=== PATIENT | male | born 1970 | race Caucasian/White ===

== ENCOUNTER 2020-06-17 18:37 | Inpatient (IN) | payer OTHER, SELFPAY ==
[2020-06-17 20:39] VITALS: BP 146/92; PULSE 114; RESP 18; TEMP 37.1; O2SAT 96; BMI 34.0
[2020-06-17 21:15] LABS: Amphetamine Screen Urine Not Detected (Not Detect); Barbiturates, Urine Not Detected (Not Detect); Benzodiazepines Screen Urine Not Detected (Not Detect); Cannabinoid Screen Urine POSITIVE (Not Detect); Cocaine Screen Urine Not Detected (Not Detect); Opiate Screen Urine Not Detected (Not Detect); Phencyclidine Screen Urine Not Detected (Not Detect)
--- NOTE | 2020-06-17 22:28 | ED.PSYCH ---
HPI - Psych General Chief Complaint: Psychiatric Symptoms Stated Complaint: crisis Time Seen by Provider: 06/17/20 22:28 Source: patient Mode of arrival: ambulatory History of Present Illness HPI Narrative: 49-year-old male who presents with increasing anxiety and depression and states he is not currently taking any medications. When asked about suicidal ideation patient describes vague symptoms but states that he would not follow through. Otherwise, patient denies any fevers, chills, shortness of breath, or chest pain. Related Data Allergies Allergy/AdvReac Type Severity Reaction Status Date / Time No Known Allergies Allergy Verified 06/17/20 20:38 [No Known Allergies*] Review of Systems Review of Systems: Pertinent positives and negatives as stated in HPI 10 point review of systems is otherwise negative. PMFSH Past Medical History Source: nursing notes reviewed Medical History Anxiety Depression Social History Social History Advance Directives: No Physical Exam Vital Signs: Vital Signs: Last Vital Signs Temp 98.8 F 06/17/20 20:39 Pulse 114 H 06/17/20 20:39 Resp 18 06/17/20 20:39 BP 146/92 H 06/17/20 20:39 Pulse Ox 96 06/17/20 20:39 Body Mass Index 34.0 VITAL SIGNS: Reviewed. GENERAL: Well developed, well nourished, in no acute distress. HEAD: Normocephalic/atraumatic OROPHARYNX: no oral lesions noted, posterior pharynx clear NECK: Supple, no adenopathy LUNGS: Normal breath sounds. SpO2<96> CARDIOVASCULAR: Regular rate and rhythm without noted murmurs ABDOMEN: Soft, non-tender, non-distended with bowel sounds. NEUROLOGIC: Alert and oriented x 4. Strength and sensation to light touch were grossly intact x 4. PSYCH: Calm, logical thought Course Course Course Narrative: 49-year-old male with history and clinical presentation of anxiety and depression, not currently taking medications and also endorses vague symptoms of suicidal ideation. Patient is otherwise medically cleared for further evaluation by the CARE team. Reevaluation(s) Reevaluation #1: Patient placed in physician observation because the patient is inpatient bedsearch. At the time observation was started the patient's vital signs were stable, patient is alert and oriented but slightly agitated, neuro: Nonfocal, CV RRR, lungs clear Time: 23:35 MDM - Psych Lab Data Labs: Lab Results 06/17/20 Range/Units 20:45 Urine Opiates Screen Not Detected (Not Detect) Ur Barbiturates Screen Not Detected (Not Detect) Ur Phencyclidine Scrn Not Detected (Not Detect) Ur Amphetamines Screen Not Detected (Not Detect) U Benzodiazepines Scrn Not Detected (Not Detect) Urine Cocaine Screen Not Detected (Not Detect) U Marijuana (THC) Screen POSITIVE H (Not Detect)
[2020-06-17 23:38] VITALS: BP 158/105; PULSE 105; RESP 16; TEMP 37.1; O2SAT 98
[2020-06-18] VITALS (8 sets, daily range): BP systolic 102–129; BP diastolic 60–86; PULSE 76–97; RESP 16–18; TEMP 36.3–37.1; O2SAT 96–100
[2020-06-18 00:07] LABS: COVID-19 Test Negative (Negative); IDNOW Serial# 9DD0AD1C
--- NOTE | 2020-06-18 01:32 | ECG_ITS ---
Test Reason : BLOOD CLOTH Blood Pressure : / mmHG Vent. Rate : 089 BPM Atrial Rate : 089 BPM P-R Int : 124 ms QRS Dur : 102 ms QT Int : 392 ms P-R-T Axes : -17 029 018 degrees QTc Int : 476 ms Normal sinus rhythm Cannot exclude old Inferior infarct (cited on or before 18-JUL-2018) Abnormal ECG When compared with ECG of 14-OCT-2019 12:50, No significant change was found Referred By: Shira Vilchis Electronically Signed By:ELLA WINCHESTER
[2020-06-18 02:30] LABS: D Dimer 425 NG/ML
--- NOTE | 2020-06-18 07:09 | PC.NURSE ---
Report recieved. PT currently eating breakfast, calm and cooperative, pt denies complaints. PT is inpatient bedsearch.
[2020-06-18] MEDS: lisinopriL 5 MG TABLET PO (09:50)
[2020-06-18] MEDS: Apixaban 5 MG TABLET 10 MG PO ×2 (09:50→21:50)
[2020-06-18] MEDS: Metoprolol Tartrate 25 MG TABLET PO ×2 (09:50→21:50)
[2020-06-18] MEDS: Omeprazole 20 MG CAPSULE.DR PO (09:50)
[2020-06-18 10:58] LABS: MANUAL DIFF FLAG NO
[2020-06-18 11:00] LABS: Basophils Percent Auto 0.3 % (0-2); Eosinophils Absolute Auto 0.1 X10*3/uL (0.0-0.4); Eosinophils Percent Auto 1.2 % (0-4); Hematocrit 49.3 % (42-52); Hemoglobin 16.4 g/dl (14.0-18.0); Imm Gran Abs Auto 0.03 X10*3/uL (0.00-0.03); Imm Gran Pct Auto 0.3 % (0.0-0.4); Lymphocytes Absolute Auto 1.8 X10*3/uL (1.2-4.9); Lymphocytes Percent Auto 15.3 % (20-40); Mean Corpuscular HGB Conc 33.3 g/dl (31.0-36.0); Mean Corpuscular Hemoglobin 30.6 pg (27.0-33.0); Mean Platelet Volume 9.2 fL (9.4-12.4); Monocytes Percent Auto 8.6 % (2-11); Neutrophils Absolute Auto 8.9 X10*3/uL (2.0-8.3); Neutrophils Percent Auto 74.3 % (45-73); Platelet Count 286 X10*3/uL (160-400); Red Blood Count 5.36 X10*6/uL (4.60-5.80); Red Cell Distribution Width 13.5 % (11.0-16.0); White Blood Count 11.9 X10*3/uL (4.8-10.8)
[2020-06-18 11:34] LABS: Anion Gap 14 (12-20); Blood Urea Nitrogen 10 mg/dL (9-16); Calcium 9.2 mg/dL (8.4-10.2); Carbon Dioxide 22 mmol/L (22-29); Chloride 107 mmol/L (96-108); Creatinine Clr Calc Pharmacy 114.3; Estimated Glomerular Filt Rate > 60; Glucose Random 102 mg/dL (60-115); Potassium 4.1 mmol/L (3.3-5.1); Sodium 139 mmol/L (135-145)
--- NOTE | 2020-06-18 19:56 | PC.NURSE ---
Report received. PT is sleeping in bed. Respirations even and unlabored. PT is inpatient bed search.
[2020-06-19] VITALS (8 sets, daily range): BP systolic 110–137; BP diastolic 68–86; PULSE 76–102; RESP 16–18; TEMP 36.3–36.6; O2SAT 95–97
[2020-06-19] MEDS: Melatonin 3 MG TABLET 9 MG PO ×2 (01:02→21:32)
[2020-06-19] MEDS: Omeprazole 20 MG CAPSULE.DR PO (06:17)
[2020-06-19] MEDS: lisinopriL 5 MG TABLET PO (09:31)
[2020-06-19] MEDS: Metoprolol Tartrate 25 MG TABLET PO ×2 (09:31→20:24)
[2020-06-19] MEDS: Apixaban 5 MG TABLET 10 MG PO ×2 (09:32→20:25)
--- NOTE | 2020-06-19 14:05 | PC.NURSE ---
nurse to nurse given to abilio (rn) on m5, pt aware of plan of care for admission to hosp.
--- NOTE | 2020-06-19 16:33 | PC.NURSE ---
49 year old male DX: Unspecified anxiety d/o, Unspecified schizophrenia spectrum and other psychotic d/o. Patient referred for admission by care team, arrived to floor 1515, signed CV. A+O x2, did not know date. Engages easily, intermittent eye contact, fair-poor attn to ADLs. Dressed in hospital attire. Patient reports mood is anxious, picks skin when anxious, presents with multiple skin lesions on arms, legs, back and forehead. When I get nervous I scratch and itch . States prior admission to unit, previously treated for alcohol use I haven't drank for 10 years . Denies drug use although tox screen positive for Cannabis. COVID negative. Patient reports he has no current providers and has not been taking medications. Reports nothing helps feels hopeless. Intermittent SI, denies plan or intent at this time. States mandaeism beliefs prevent him from acting on suicidal thoughts. Describes thought as negative. Endorses racing thoughts with poor focus. Easily distracted. Patient guarded however linear and organized. Denies A/V hallucinations at this time. Reports family and staff believe he is delusional, I got engaged 2 years ago and didn't want to. I know people think I am delusional but I'm not. The demonic evil spirits made me . The spirits make me do it . States recent stressor includes leaving [facility] 2 weeks ago. Medical history includes sleep apnea, and history of blood clot last year. States he does not have CPAP here, and believes his at home may be broken. [employer] made aware. NKDA. Placed on 5 minute safety checks. See nursing assessment for details, crisis eval for further details.
[2020-06-19] MEDS: hydrOXYzine HCL 25 MG TABLET PO (20:27)
[2020-06-20 06:00] VITALS: BP 133/76; PULSE 78; RESP 18; TEMP 36.6; O2SAT 97
[2020-06-20] MEDS: Omeprazole 20 MG CAPSULE.DR PO (06:49)
[2020-06-20 07:00] VITALS: BMI 32.5
[2020-06-20 09:08] VITALS: BP 115/63; PULSE 80
[2020-06-20] MEDS: Metoprolol Tartrate 25 MG TABLET PO ×2 (09:08→20:12)
[2020-06-20 09:09] VITALS: BP 115/63; PULSE 80
[2020-06-20] MEDS: lisinopriL 5 MG TABLET PO (09:09)
[2020-06-20] MEDS: Apixaban 5 MG TABLET 10 MG PO ×2 (09:09→20:13)
[2020-06-20 09:14] LABS: Estimated Average Glucose 105 mg/dL; Hemoglobin A1c % 5.3 %
[2020-06-20 09:29] LABS: Cholesterol 213 mg/dL; HDL Cholesterol 42 mg/dL; LDL Cholesterol Calculated 150 mg/dl; Triglycerides 106 mg/dL
[2020-06-20 09:51] LABS: Free T4 (Free Thyroxine) 1.06 ng/dL (0.71-1.85)
[2020-06-20 10:06] LABS: Thyroid Stimulating Hormone 0.72 uIU/mL (0.32-4.0)
[2020-06-20 10:30] LABS: Folate 9.9 ng/mL (> or = 4.0); Vitamin B12 246 pg/mL (200-900)
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
[2020-06-20 18:00] VITALS: BP 112/71; PULSE 80; TEMP 36.7
[2020-06-20 20:12] VITALS: BP 112/71; PULSE 80
[2020-06-20] MEDS: OLANZapine 10 MG TABLET PO (20:12)
[2020-06-20] MEDS: Melatonin 3 MG TABLET 9 MG PO (21:18)
[2020-06-21 06:00] VITALS: BP 104/57; PULSE 62; RESP 18; TEMP 36; O2SAT 96
[2020-06-21] MEDS: Omeprazole 20 MG CAPSULE.DR PO (06:37)
[2020-06-21 08:45] VITALS: BP 126/64; PULSE 73
[2020-06-21] MEDS: Metoprolol Tartrate 25 MG TABLET PO (08:45)
[2020-06-21] MEDS: lisinopriL 5 MG TABLET PO (08:45)
[2020-06-21] MEDS: FLUoxetine HCl Oral Solution 20 MG/5 ML SOLUTION 10 MG PO (09:07)
[2020-06-21] MEDS: Apixaban 5 MG TABLET 10 MG PO ×2 (09:08→19:56)
--- NOTE | 2020-06-21 17:45 | HO.PSYCHPN ---
Subjective Subjective Date of Service: 06/21/20 Reason For Visit: Schizophrenia Subjective Notes: Conditional Voluntary Interim History: Pt discussed his depressive sx and resulting life changes. States sx began when he became engaged. He believes at that time the devil was present and encouraged him to . States the relationship was not the one for him and he almost made a mistake-but did not. Pt discussed having strong [place]/belief system and believes this is what kept him from making the wrong decision. Discussed regime, ECT consult. Considering a TDN and a return to [facility] as they heal and deliver . Encouraged to achieve improved sx mgt prior to considering this travel so he may benefit more from his experience. Reports this retreat will not allow medicine of any kind. Asks for prn medicine for sleep along with his Melatonin. Medication Compliance: Yes Side effects from medications: No Attending Groups: No Review of Systems Review of Systems Yes all other systems are reviewed and are negative (denies) Reports behavioral changes Psychiatric: Reports abnormal sleep pattern, Reports anxiety, Reports behavioral changes, Reports depression, Reports difficulty concentrating, Reports auditory hallucinations, Reports hopelessness, Reports paranoia and Reports hallucinations Mental Status Exam Mental Status Exam Patient Appearance: Disheveled Patient Orientation: Person, Place and Situation Level of Consciousness: Alert Patient Behavior: Guarded, Talkative, Suspicious, Fatigued and Poor Eye Contact Mood Description: Suspicious, Withdrawn and Depressed Affect Description: Flat Patient Cognition Impaired: No Ability to Follow Directions: Good Speech Pattern: Perseverating, Spontaneous Speech and Soft-Spoken Memory Description: Episodic Impaired Hallucinations: None Delusions: Present (pt identifies that they are present) Thought Process: Rumination Thought Content: positive for [place], positive for Obsessional Thoughts and positive for Circumstantial Depressive Symptoms: Insomnia, Diff. Making Decisions, Difficulty Sleeping, Loss of Int. in Activity, Feelings of Worthlessness, Hopelessness, Unhappiness and Difficulty Concentrating Judgement: Poor Diagnostics Vital Signs (24Hr): Vital Signs - 24 hr 06/20/20 18:00 06/20/20 20:12 06/21/20 06:00 Temperature 98.1 F 96.8 F Pulse Rate 80 80 62 Respiratory Rate 18 Blood Pressure 112/71 112/71 104/57 L Pulse Oximetry 96 06/21/20 08:45 Temperature Pulse Rate 73 Respiratory Rate Blood Pressure 126/64 Pulse Oximetry Body Mass Index 32.5 Labs Results: 06/18/20 10:52 06/18/20 10:52 Labs: Laboratory Results - last 48 hr 06/20/20 06/20/20 06/20/20 08:39 08:39 08:39 Estimat Average Glucose 105 Hemoglobin A1c % 5.3 Triglycerides 106 Cholesterol 213 LDL Cholesterol, Calc 150 HDL Cholesterol 42 Vitamin B12 246 Folate 9.9 TSH 0.72 Free T4 1.06 Medications Medications Current Medications Generic Name Dose Route Start Last Admin Trade Name Freq PRN Reason Stop Dose Admin Acetaminophen 650 mg 06/19/20 15:34 Acetaminophen 325 Mg Tablet PO Q6H PRN Headache/Pain Mild Scale (1-3) Al Hydroxide/Mg Hydroxide 30 ml 06/19/20 15:34 Magnesium Hydrox/Alum Hydrox 30 Ml Oral.Susp PO Q6H PRN Heartburn/Nausea Apixaban 10 mg 06/18/20 09:00 06/21/20 09:08 Apixaban 5 Mg Tablet PO 06/25/20 08:59 10 mg BID FERNANDO Administration Fluoxetine HCl 10 mg 06/21/20 09:00 06/21/20 09:07 Fluoxetine Hcl Oral Solution 20 Mg/5 Ml Solution PO 10 mg DAILY FERNANDO Administration Hydroxyzine HCl 25 mg 06/19/20 15:34 06/19/20 20:27 Hydroxyzine Hcl 25 Mg Tablet PO 25 mg BEDTIME PRN Administration Anxiety Lisinopril 5 mg 06/18/20 09:00 06/21/20 08:45 Lisinopril 5 Mg Tablet PO 5 mg DAILY FERNANDO Administration Protocol Lorazepam 1 mg 06/19/20 15:38 Lorazepam 1 Mg Tablet PO Q6H PRN Anxiety Magnesium Hydroxide 30 ml 06/19/20 15:34 Milk Of Magnesia 30 Ml Oral.Susp PO DAILY PRN Constipation Melatonin 9 mg 06/20/20 21:15 06/20/20 21:18 Melatonin 3 Mg Tablet PO 9 mg BEDTIME FERNANDO Administration Metoprolol Tartrate 25 mg 06/18/20 09:00 06/21/20 08:45 Metoprolol Tartrate 25 Mg Tablet PO 25 mg BID FERNANDO Administration Protocol Olanzapine 10 mg 06/20/20 21:00 06/20/20 20:12 Olanzapine 10 Mg Tablet PO 10 mg BEDTIME FERNANDO Administration Omeprazole 20 mg 06/18/20 06:30 06/21/20 06:37 Omeprazole 20 Mg Capsule. PO 20 mg DAILY@0630 FERNANDO Administration Allergies Allergies Allergy/AdvReac Type Severity Reaction Status Date / Time No Known Allergies Allergy Verified 06/17/20 20:38 [No Known Allergies*] Assessment & Plan Assessment & Plan (1) Severe recurrent major depression w/psychotic features, mood-congruent: Status: Acute Code(s): F33.3 - Major depressive disorder, recurrent, severe with psychotic symptoms Assessment and Plan: Pt feeling hopeless regarding interventions. Considers a return to [facility] Prozac 10 mg daily-to target depressive, OCD sx. Increase Olanzapine to 15 mg HS-to target depressive, OCD, psychotic, skin picking sx. ECT Consult (2) OCD (obsessive compulsive disorder): Status: Acute Code(s): F42.9 - Obsessive-compulsive disorder, unspecified (3) Skin-picking disorder: Status: Acute Code(s): F42.4 - Excoriation (skin-picking) disorder Greater than 50% of the session was spent on counseling and/or coordination of care Reason for contiued inpatient stay Substantial Risk for: harm to self, harm to others, inability to function and rapid decompensation
[2020-06-21 18:15] VITALS: BP 131/77; PULSE 89; TEMP 36.8
[2020-06-21 19:40] VITALS: BP 114/53; PULSE 88; TEMP 37.1
[2020-06-21] MEDS: Melatonin 3 MG TABLET 9 MG PO (19:55)
[2020-06-21] MEDS: OLANZapine 7.5 MG TABLET 15 MG PO (19:56)
[2020-06-21 19:58] VITALS: BP 114/53; PULSE 88
[2020-06-22 06:20] VITALS: BP 102/58; PULSE 67; RESP 18; TEMP 36.3; O2SAT 95
[2020-06-22] MEDS: Omeprazole 20 MG CAPSULE.DR PO (06:34)
[2020-06-22] MEDS: FLUoxetine HCl Oral Solution 20 MG/5 ML SOLUTION 10 MG PO (09:48)
[2020-06-22] MEDS: Apixaban 5 MG TABLET 10 MG PO ×2 (09:48→21:05)
--- NOTE | 2020-06-22 19:48 | HO.PSYCHPN ---
Subjective Subjective Date of Service: 06/22/20 Reason For Visit: Schizophrenia Subjective Notes: Conditional Voluntary Interim History: Pt reports he is tolerating medicine, is able to sleep, and picking sx have decreased. He is considering a TDN and wanting to return to retreat in [facility]. Medication Compliance: Yes Side effects from medications: No (denies) Attending Groups: Intermittent Review of Systems Skin/Breast: Reports lesions (healing-skin picking) Psychiatric: Reports difficulty concentrating, Reports auditory hallucinations, Reports anhedonia and Reports hallucinations Mental Status Exam Mental Status Exam Patient Appearance: Disheveled Patient Orientation: Person, Place, Time and Situation Level of Consciousness: Alert Patient Behavior: Guarded, Cooperative, Anxious, Distractible and Poor Eye Contact Mood Description: Constricted Affect Description: Constricted Patient Cognition Impaired: No Ability to Follow Directions: Good Speech Pattern: Spontaneous Speech and Soft-Spoken Memory Description: Episodic Impaired Hallucinations: Auditory (some self-dialoguing noted) Delusions: Present Thought Process: Distracted Thought Content: positive for Circum[place] and positive for Perseveration Depressive Symptoms: Low Self Esteem Judgement: Fair Diagnostics Vital Signs (24Hr): Vital Signs - 24 hr 06/21/20 19:58 06/22/20 06:20 Temperature 97.3 F Pulse Rate 88 67 Respiratory Rate 18 Blood Pressure 114/53 L 102/58 L Pulse Oximetry 95 Body Mass Index 32.5 Labs Results: 06/18/20 10:52 06/18/20 10:52 Medications Medications Current Medications Generic Name Dose Route Start Last Admin Trade Name Freq PRN Reason Stop Dose Admin Acetaminophen 650 mg 06/19/20 15:34 Acetaminophen 325 Mg Tablet PO Q6H PRN Headache/Pain Mild Scale (1-3) Al Hydroxide/Mg Hydroxide 30 ml 06/19/20 15:34 Magnesium Hydrox/Alum Hydrox 30 Ml Oral.Susp PO Q6H PRN Heartburn/Nausea Apixaban 10 mg 06/18/20 09:00 06/22/20 09:48 Apixaban 5 Mg Tablet PO 06/25/20 08:59 10 mg BID FERNANDO Administration Fluoxetine HCl 10 mg 06/21/20 09:00 06/22/20 09:48 Fluoxetine Hcl Oral Solution 20 Mg/5 Ml Solution PO 10 mg DAILY FERNANDO Administration Hydroxyzine HCl 25 mg 06/19/20 15:34 06/19/20 20:27 Hydroxyzine Hcl 25 Mg Tablet PO 25 mg BEDTIME PRN Administration Anxiety Lisinopril 5 mg 06/18/20 09:00 06/22/20 09:48 Lisinopril 5 Mg Tablet PO Not Given DAILY FERNANDO Protocol Lorazepam 1 mg 06/19/20 15:38 Lorazepam 1 Mg Tablet PO Q6H PRN Anxiety Magnesium Hydroxide 30 ml 06/19/20 15:34 Milk Of Magnesia 30 Ml Oral.Susp PO DAILY PRN Constipation Melatonin 9 mg 06/20/20 21:15 06/21/20 19:55 Melatonin 3 Mg Tablet PO 9 mg BEDTIME FERNANDO Administration Metoprolol Tartrate 25 mg 06/18/20 09:00 06/22/20 09:48 Metoprolol Tartrate 25 Mg Tablet PO Not Given BID FERNANDO Protocol Olanzapine 15 mg 06/21/20 21:00 06/21/20 19:56 Olanzapine 7.5 Mg Tablet PO 15 mg BEDTIME FERNANDO Administration Omeprazole 20 mg 06/18/20 06:30 06/22/20 06:34 Omeprazole 20 Mg Capsule. PO 20 mg DAILY@0630 FERNANDO Administration Trazodone HCl 100 mg 06/21/20 17:46 Trazodone Hcl 100 Mg Tablet PO BEDTIME PRN Insomnia Allergies Allergies Allergy/AdvReac Type Severity Reaction Status Date / Time No Known Allergies Allergy Verified 06/17/20 20:38 [No Known Allergies*] Assessment & Plan Assessment & Plan (1) Severe recurrent major depression w/psychotic features, mood-congruent: Status: Acute Code(s): F33.3 - Major depressive disorder, recurrent, severe with psychotic symptoms Assessment and Plan: Pt feeling hopeless regarding interventions. Considers a return to [facility] day retreat Prozac 10 mg daily-to target depressive, OCD sx. and Olanzapine 15 mg HS to target depressive, OCD, psychosis and skin picking ECT Consult (2) OCD (obsessive compulsive disorder): Status: Acute Code(s): F42.9 - Obsessive-compulsive disorder, unspecified (3) Skin-picking disorder: Status: Acute Code(s): F42.4 - Excoriation (skin-picking) disorder Greater than 50% of the session was spent on counseling and/or coordination of care Reason for contiued inpatient stay Substantial Risk for: inability to function and rapid decompensation
[2020-06-22 21:05] VITALS: BP 148/77; PULSE 104
[2020-06-22] MEDS: OLANZapine 7.5 MG TABLET 15 MG PO (21:05)
[2020-06-22] MEDS: Metoprolol Tartrate 25 MG TABLET PO (21:05)
[2020-06-22] MEDS: Melatonin 3 MG TABLET 9 MG PO (21:05)
[2020-06-22 21:07] VITALS: BP 148/77; PULSE 104; TEMP 36.9; O2SAT 97
[2020-06-22] MEDS: hydrOXYzine HCL 25 MG TABLET PO (22:16)
[2020-06-23 06:00] VITALS: BP 105/58; PULSE 62; RESP 18; TEMP 37.2; O2SAT 96
[2020-06-23] MEDS: Omeprazole 20 MG CAPSULE.DR PO (06:42)
[2020-06-23] MEDS: Apixaban 5 MG TABLET 10 MG PO ×2 (09:39→20:45)
[2020-06-23] MEDS: FLUoxetine HCl Oral Solution 20 MG/5 ML SOLUTION 10 MG PO (09:40)
[2020-06-23 09:58] VITALS: BP 100/56; PULSE 60
[2020-06-23 10:01] VITALS: BP 100/66; PULSE 60
--- NOTE | 2020-06-23 14:23 | HO.PSYCHPN ---
Subjective Subjective Date of Service: 06/23/20 Reason For Visit: Schizophrenia Subjective Notes: Conditional Voluntary Interim History: Reports he plans to sign TDN. Will have ECT consult and will take medications, however, he reports sx are worse since he left retreat in [facility] ([facility] States with no meds he was not picking his skin. Brings the origin of sx back to the devil-taking temptation and getting involved with previous partner. This started a downward spiral of his life and an increase in his sx. He believes there is no treatment for sx except to focus on his yarsani beliefs, although he expressed gratitude for treatments given and offered. Believes he should admit himself to [facility] for a year or more to heal. Will discuss with family. Medication Compliance: Yes Side effects from medications: No (denies) Attending Groups: Yes Review of Systems Skin/Breast: Reports lesions (skin lesions due to picking appear improved.) Reports behavioral changes Psychiatric: Reports anxiety, Reports behavioral changes, Reports depression and Reports hopelessness Mental Status Exam Mental Status Exam Patient Appearance: Disheveled Patient Orientation: Person, Place, Time and Situation Level of Consciousness: Alert Patient Behavior: Talkative, Cooperative, Fatigued, Distractible and Good Eye Contact Mood Description: Anxious Affect Description: Flat Patient Cognition Impaired: No Ability to Follow Directions: Good Speech Pattern: Spontaneous Speech and Soft-Spoken Memory Description: Episodic Impaired Hallucinations: Auditory (responding to internal stimuli at times-dialoguing, laughing) Delusions: Present (yarsani focus increasing-being punished ) Thought Process: Illogical and Rumination Thought Content: positive for [place], positive for [place]um[place], positive for Perseveration, positive for Preoccupation and positive for Suicidal Ideation (denies) Depressive Symptoms: Diff. Making Decisions, Feelings of Worthlessness, Hopelessness, Feelings of Guilt, Unhappiness, Thoughts of /Suicide (denies) and Low Self Esteem Judgement: Poor Diagnostics Vital Signs (24Hr): Vital Signs - 24 hr 06/22/20 21:05 06/22/20 21:07 06/23/20 06:00 Temperature 98.5 F 98.9 F Pulse Rate 104 H 104 H 62 Respiratory Rate 18 Blood Pressure 148/77 H 148/77 H 105/58 L Pulse Oximetry 97 96 06/23/20 09:58 06/23/20 10:01 Temperature Pulse Rate 60 60 Respiratory Rate Blood Pressure 100/56 L 100/66 Pulse Oximetry Body Mass Index 32.5 Labs Results: 06/18/20 10:52 06/18/20 10:52 Medications Medications Current Medications Generic Name Dose Route Start Last Admin Trade Name Freq PRN Reason Stop Dose Admin Acetaminophen 650 mg 06/19/20 15:34 Acetaminophen 325 Mg Tablet PO Q6H PRN Headache/Pain Mild Scale (1-3) Al Hydroxide/Mg Hydroxide 30 ml 06/19/20 15:34 Magnesium Hydrox/Alum Hydrox 30 Ml Oral.Susp PO Q6H PRN Heartburn/Nausea Apixaban 10 mg 06/18/20 09:00 06/23/20 09:39 Apixaban 5 Mg Tablet PO 06/25/20 08:59 10 mg BID FERNANDO Administration Fluoxetine HCl 10 mg 06/21/20 09:00 06/23/20 09:40 Fluoxetine Hcl Oral Solution 20 Mg/5 Ml Solution PO 10 mg DAILY FERNANDO Administration Hydroxyzine HCl 25 mg 06/19/20 15:34 06/22/20 22:16 Hydroxyzine Hcl 25 Mg Tablet PO 25 mg BEDTIME PRN Administration Anxiety Lisinopril 5 mg 06/18/20 09:00 06/23/20 10:01 Lisinopril 5 Mg Tablet PO Not Given DAILY FERNANDO Protocol Lorazepam 1 mg 06/19/20 15:38 Lorazepam 1 Mg Tablet PO Q6H PRN Anxiety Magnesium Hydroxide 30 ml 06/19/20 15:34 Milk Of Magnesia 30 Ml Oral.Susp PO DAILY PRN Constipation Melatonin 9 mg 06/20/20 21:15 06/22/20 21:05 Melatonin 3 Mg Tablet PO 9 mg BEDTIME FERNANDO Administration Metoprolol Tartrate 25 mg 06/18/20 09:00 06/23/20 09:58 Metoprolol Tartrate 25 Mg Tablet PO Not Given BID FERNANDO Protocol Olanzapine 15 mg 06/21/20 21:00 06/22/20 21:05 Olanzapine 7.5 Mg Tablet PO 15 mg BEDTIME FERNANDO Administration Omeprazole 20 mg 06/18/20 06:30 06/23/20 06:42 Omeprazole 20 Mg Capsule.Dr PO 20 mg DAILY@0630 FERNANDO Administration Trazodone HCl 100 mg 06/21/20 17:46 Trazodone Hcl 100 Mg Tablet PO BEDTIME PRN Insomnia Allergies Allergies Allergy/AdvReac Type Severity Reaction Status Date / Time No Known Allergies Allergy Verified 06/17/20 20:38 [No Known Allergies*] Assessment & Plan Assessment & Plan (1) Severe recurrent major depression w/psychotic features, mood-congruent: Status: Acute Code(s): F33.3 - Major depressive disorder, recurrent, severe with psychotic symptoms Assessment and Plan: Pt feeling hopeless regarding interventions. Considers a return to [facility] retreat for a assisted commitment Plans to file TDN Prozac 10 mg daily-to target depressive, OCD sx. Increase Olanzapine to 20 mg HS ECT Consult (2) OCD (obsessive compulsive disorder): Status: Acute Code(s): F42.9 - Obsessive-compulsive disorder, unspecified Assessment and Plan: Picking sx have decreased, Lesions are healing. Increase Olanzapine to 20 mg HS. (3) Skin-picking disorder: Status: Acute Code(s): F42.4 - Excoriation (skin-picking) disorder Assessment and Plan: Symptoms decreaseing, lesions healing. Greater than 50% of the session was spent on counseling and/or coordination of care Reason for contiued inpatient stay Substantial Risk for: inability to function and rapid decompensation
[2020-06-23 18:42] VITALS: BP 117/63; PULSE 91; TEMP 36.9
[2020-06-23 20:45] VITALS: BP 127/88; PULSE 95
[2020-06-23] MEDS: OLANZapine 10 MG TABLET 20 MG PO (20:45)
[2020-06-23] MEDS: Metoprolol Tartrate 25 MG TABLET PO (20:45)
[2020-06-23] MEDS: Melatonin 3 MG TABLET 9 MG PO (20:45)
[2020-06-24 06:00] VITALS: BP 120/70; PULSE 56; RESP 18; TEMP 36.6; O2SAT 97
[2020-06-24] MEDS: Omeprazole 20 MG CAPSULE.DR PO (06:33)
[2020-06-24 09:15] VITALS: BP 123/72; PULSE 70
[2020-06-24] MEDS: Apixaban 5 MG TABLET 10 MG PO ×2 (09:15→21:26)
[2020-06-24] MEDS: Metoprolol Tartrate 25 MG TABLET PO ×2 (09:15→21:26)
[2020-06-24 09:18] VITALS: BP 123/70; PULSE 70
[2020-06-24] MEDS: lisinopriL 5 MG TABLET PO (09:18)
[2020-06-24] MEDS: FLUoxetine HCl Oral Solution 20 MG/5 ML SOLUTION 10 MG PO (09:19)
--- NOTE | 2020-06-24 12:01 | PC.NURSE ---
PT SIGNED A 3 DAY NOTICE 06/24/20, UP ON 06/27
[2020-06-24 21:15] VITALS: BP 120/59; PULSE 110; TEMP 37.1
--- NOTE | 2020-06-24 21:23 | P.PNPSI_ITS ---
Subjective Subjective Date of Service: 06/24/20 Reason For Visit: Schizophrenia Subjective Notes: Conditional Voluntary Interim History: Continues to contemplate TDN for a return to [facility] retreat in [facility]. Awaits ECT consult. Accepting of medications, discussed titration which he agrees to today, however, continues to state that his issues and symptoms are from poor choices that were not correct or in line with his belief system. Isolative mostly, interactive with room-mate. Denies SI, HI. Sleep is increased, appetite intact. Picking continues. Olanzapine increased 06/23. Healing scars noted on pt's face. Medication Compliance: Yes Side effects from medications: No Attending Groups: No Review of Systems Review of Systems Yes all other systems are reviewed and are negative (denies) Psychiatric: Reports depression, Reports hopelessness, Reports anhedonia, Reports hallucinations and Reports suicidal ideation (denies) Mental Status Exam Mental Status Exam Patient Appearance: Unkempt Patient Orientation: Person, Place, Time and Situation Level of Consciousness: Alert Patient Behavior: Appropriate, Guarded, Talkative, Suspicious, Avoidant, Isolative and Good Eye Contact Mood Description: Constricted and Depressed Affect Description: Flat Patient Cognition Impaired: No Ability to Follow Directions: Good Speech Pattern: Spontaneous Speech Memory Description: Intact Hallucinations: None Delusions: Being Controlled, Paranoid Ideation and Present Thought Process: Distracted and Rumination Thought Content: positive for [place], positive for [place]um[place], positive for Perseveration and positive for Preoccupation Depressive Symptoms: Diff. Making Decisions, Sleeping More Than Usual, Loss of Int. in Activity, Hopelessness, Feelings of Guilt, Unhappiness, Increased Fatigue, Low Self Esteem, Loss of Energy and Difficulty Concentrating Judgement: Fair Diagnostics Vital Signs (24Hr): Vital Signs - 24 hr 06/24/20 06:00 06/24/20 09:15 06/24/20 09:18 Temperature 97.9 F Pulse Rate 56 70 70 Respiratory Rate 18 Blood Pressure 120/70 123/72 123/70 Pulse Oximetry 97 Body Mass Index 32.5 Labs Results: 06/18/20 10:52 06/18/20 10:52 Medications Medications Current Medications Generic Name Dose Route Start Last Admin Trade Name Freq PRN Reason Stop Dose Admin Acetaminophen 650 mg 06/19/20 15:34 Acetaminophen 325 Mg Tablet PO Q6H PRN Headache/Pain Mild Scale (1-3) Al Hydroxide/Mg Hydroxide 30 ml 06/19/20 15:34 Magnesium Hydrox/Alum Hydrox 30 Ml Oral.Susp PO Q6H PRN Heartburn/Nausea Apixaban 10 mg 06/18/20 09:00 06/24/20 09:15 Apixaban 5 Mg Tablet PO 06/25/20 08:59 10 mg BID FERNANDO Administration Fluoxetine HCl 15 mg 06/25/20 09:00 Fluoxetine Hcl Oral Solution 20 Mg/5 Ml Solution PO DAILY FERNANDO Hydroxyzine HCl 25 mg 06/19/20 15:34 06/22/20 22:16 Hydroxyzine Hcl 25 Mg Tablet PO 25 mg BEDTIME PRN Administration Anxiety Lisinopril 5 mg 06/18/20 09:00 06/24/20 09:18 Lisinopril 5 Mg Tablet PO 5 mg DAILY FERNNADO Administration Protocol Lorazepam 1 mg 06/19/20 15:38 Lorazepam 1 Mg Tablet PO Q6H PRN Anxiety Magnesium Hydroxide 30 ml 06/19/20 15:34 Milk Of Magnesia 30 Ml Oral.Susp PO DAILY PRN Constipation Melatonin 9 mg 06/20/20 21:15 06/23/20 20:45 Melatonin 3 Mg Tablet PO 9 mg BEDTIME FERNANDO Administration Metoprolol Tartrate 25 mg 06/18/20 09:00 06/24/20 09:15 Metoprolol Tartrate 25 Mg Tablet PO 25 mg BID FERNANDO Administration Protocol Olanzapine 20 mg 06/23/20 21:00 06/23/20 20:45 Olanzapine 10 Mg Tablet PO 20 mg BEDTIME FERNANDO Administration Omeprazole 20 mg 06/18/20 06:30 06/24/20 06:33 Omeprazole 20 Mg Capsule. PO 20 mg DAILY@0630 FERNANDO Administration Trazodone HCl 100 mg 06/21/20 17:46 Trazodone Hcl 100 Mg Tablet PO BEDTIME PRN Insomnia Allergies Allergies Allergy/AdvReac Type Severity Reaction Status Date / Time No Known Allergies Allergy Verified 06/17/20 20:38 [No Known Allergies*] Assessment & Plan Assessment & Plan (1) Severe recurrent major depression w/psychotic features, mood-congruent: Status: Acute Code(s): F33.3 - Major depressive disorder, recurrent, severe with psychotic symptoms Assessment and Plan: Pt feeling hopeless regarding interventions. 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 Increase Olanzapine to 20 mg HS on 06/23 tolerated ECT Consult (2) OCD (obsessive compulsive disorder): Status: Acute Code(s): F42.9 - Obsessive-compulsive disorder, unspecified Assessment and Plan: Picking sx have decreased, Lesions are healing. Increase Olanzapine to 20 mg HS tolerated thus far. (3) Skin-picking disorder: Status: Acute Code(s): F42.4 - Excoriation (skin-picking) disorder Assessment and Plan: Symptoms decreasing, however picking continues, lesions healing. Greater than 50% of the session was spent on counseling and/or coordination of care Reason for contiued inpatient stay Substantial Risk for: inability to function, rapid decompensation and med/psych decompensation
[2020-06-24 21:26] VITALS: BP 120/59; PULSE 110
[2020-06-24] MEDS: Melatonin 3 MG TABLET 9 MG PO (21:27)
[2020-06-24] MEDS: OLANZapine 10 MG TABLET 20 MG PO (21:28)
[2020-06-25 06:00] VITALS: BP 120/56; PULSE 66; TEMP 36.6
[2020-06-25] MEDS: Omeprazole 20 MG CAPSULE.DR PO (06:04)
[2020-06-25 08:59] VITALS: BP 135/86; PULSE 94
[2020-06-25] MEDS: FLUoxetine HCl Oral Solution 20 MG/5 ML SOLUTION 15 MG PO (08:59)
[2020-06-25] MEDS: Metoprolol Tartrate 25 MG TABLET PO ×2 (08:59→21:07)
[2020-06-25 09:02] VITALS: BP 135/86; PULSE 94
[2020-06-25] MEDS: lisinopriL 5 MG TABLET PO (09:02)
--- NOTE | 2020-06-25 10:54 | PC.NURSE ---
PT NO LONGER REQUESTING NICOTINE REPLACEMENT AT THIS TIME.
--- NOTE | 2020-06-25 11:55 | P.PNPSI_ITS ---
Subjective Subjective Date of Service: 06/25/20 Reason For Visit: Schizophrenia Subjective Notes: 3 Day Interim History: Patient seen in coverage . Patient with full affect anxious picking his skin feels he is somehow being persecuted by bed choices he has made in the past he denies that he is purposely harming himself and denies active thoughts of self-harm. Patient was given a Bowman warning prior to being seen Medication Compliance: Yes Mental Status Exam Mental Status Exam Patient Appearance: Unkempt Patient Orientation: Person, Place, Time and Situation Level of Consciousness: Alert Patient Behavior: Guarded, Talkative, Suspicious, Avoidant, Isolative and Good Eye Contact Behavior Comments: Frequent skin picking of his forehead Mood Description: Constricted and Depressed Affect Description: Flat Patient Cognition Impaired: No Ability to Follow Directions: Good Speech Pattern: Spontaneous Speech Memory Description: Intact Hallucinations: None Delusions: Being Controlled and Paranoid Ideation Thought Process: Distracted and Rumination Thought Content: positive for [place], positive for [place]um[place], positive for Perseveration and positive for Preoccupation Depressive Symptoms: Increased Anxiety, Diff. Making Decisions, Difficulty Sleeping, Sleeping More Than Usual, Loss of Int. in Activity, Hopelessness, Feelings of Guilt, Unhappiness, Increased Fatigue, Low Self Esteem, Loss of Energy and Difficulty Concentrating Judgement: Fair Diagnostics Vital Signs (24Hr): Vital Signs - 24 hr 06/24/20 21:15 06/24/20 21:26 06/25/20 06:00 Temperature 98.7 F 97.8 F Pulse Rate 110 H 110 H 66 Blood Pressure 120/59 L 120/59 L 120/56 L 06/25/20 08:59 06/25/20 09:02 Temperature Pulse Rate 94 94 Blood Pressure 135/86 135/86 Body Mass Index 32.5 Labs Results: 06/18/20 10:52 06/18/20 10:52 Medications Medications Current Medications Generic Name Dose Route Start Last Admin Trade Name Freq PRN Reason Stop Dose Admin Acetaminophen 650 mg 06/19/20 15:34 Acetaminophen 325 Mg Tablet PO Q6H PRN Headache/Pain Mild Scale (1-3) Al Hydroxide/Mg Hydroxide 30 ml 06/19/20 15:34 Magnesium Hydrox/Alum Hydrox 30 Ml Oral.Susp PO Q6H PRN Heartburn/Nausea Fluoxetine HCl 15 mg 06/25/20 09:00 06/25/20 08:59 Fluoxetine Hcl Oral Solution 20 Mg/5 Ml Solution PO 15 mg DAILY FERNANDO Administration Hydroxyzine HCl 25 mg 06/19/20 15:34 06/22/20 22:16 Hydroxyzine Hcl 25 Mg Tablet PO 25 mg BEDTIME PRN Administration Anxiety Lisinopril 5 mg 06/18/20 09:00 06/25/20 09:02 Lisinopril 5 Mg Tablet PO 5 mg DAILY FERNANDO Administration Protocol Lorazepam 1 mg 06/19/20 15:38 Lorazepam 1 Mg Tablet PO Q6H PRN Anxiety Magnesium Hydroxide 30 ml 06/19/20 15:34 Milk Of Magnesia 30 Ml Oral.Susp PO DAILY PRN Constipation Melatonin 9 mg 06/20/20 21:15 06/24/20 21:27 Melatonin 3 Mg Tablet PO 9 mg BEDTIME FERNANDO Administration Metoprolol Tartrate 25 mg 06/18/20 09:00 06/25/20 08:59 Metoprolol Tartrate 25 Mg Tablet PO 25 mg BID FERNANDO Administration Protocol Olanzapine 20 mg 06/23/20 21:00 06/24/20 21:28 Olanzapine 10 Mg Tablet PO 20 mg BEDTIME FERNANDO Administration Omeprazole 20 mg 06/18/20 06:30 06/25/20 06:04 Omeprazole 20 Mg Capsule. PO 20 mg DAILY@0630 FERNANDO Administration Trazodone HCl 100 mg 06/21/20 17:46 Trazodone Hcl 100 Mg Tablet PO BEDTIME PRN Insomnia Allergies Allergies Allergy/AdvReac Type Severity Reaction Status Date / Time No Known Allergies Allergy Verified 06/17/20 20:38 [No Known Allergies*] Assessment & Plan Assessment & Plan (1) Severe recurrent major depression w/psychotic features, mood-congruent: Status: Acute Code(s): F33.3 - Major depressive disorder, recurrent, severe with psychotic symptoms Assessment and Plan: Continue Prozac increased to 20 mg olanzapine 20 mg patient to hopeless helpless that any medication can help denies any active thoughts of self-harm feels he is somehow being persecuted in someway by bad spirits denies that medication has e mitzi helped this he was willing to consider ECT although after his last course of treatment [facility] went off medication and tends to eventually impulsively leave. Although he is willing to listen that part of his suffering and thinking may relate to a biological condition and putting this in the context his yazdanism beliefs he has had a mostly 5 fixed but appears to be delusional belief now times years. He did improve with ECT in the past will get medical clearance if patient agrees to ECT treatment. Labs unremarkable FBS minimally increased EKG QTC 476 question old infarct however unchanged over the past 2-3 years. Patient denies any active substance use. He denies any active thoughts of self-harm (2) OCD (obsessive compulsive disorder): Status: Acute Code(s): F42.9 - Obsessive-compulsive disorder, unspecified Assessment and Plan: cont prozac skin picking continues denies command or intentionality. Continue Olanzapine to 20 mg HS tolerated thus far. (3) Skin-picking disorder: Status: Acute Code(s): F42.4 - Excoriation (skin-picking) disorder Assessment and Plan: Symptoms decreasing, however picking continues, lesions healing. Greater than 50% of the session was spent on counseling and/or coordination of care Reason for contiued inpatient stay Substantial Risk for: harm to self, inability to function and rapid decompensat ion
[2020-06-25 18:00] VITALS: BP 123/69; RESP 111; TEMP 37.1
[2020-06-25 21:07] VITALS: BP 123/69; PULSE 111
[2020-06-25] MEDS: OLANZapine 10 MG TABLET 20 MG PO (21:07)
[2020-06-25] MEDS: Melatonin 3 MG TABLET 9 MG PO (21:07)
[2020-06-26 00:40] VITALS: RESP 18
[2020-06-26 06:00] VITALS: BP 113/60; PULSE 72; RESP 18; TEMP 35.9; O2SAT 96
[2020-06-26] MEDS: Omeprazole 20 MG CAPSULE.DR PO (06:20)
[2020-06-26 08:18] VITALS: BP 112/60; PULSE 77
[2020-06-26] MEDS: lisinopriL 5 MG TABLET PO (08:18)
[2020-06-26] MEDS: Metoprolol Tartrate 25 MG TABLET PO ×2 (08:18→21:07)
[2020-06-26] MEDS: FLUoxetine HCl Oral Solution 20 MG/5 ML SOLUTION PO (08:20)
[2020-06-26 08:58] VITALS: BP 112/60; PULSE 77; TEMP 36.6; O2SAT 94
[2020-06-26 18:00] VITALS: BP 131/80; PULSE 97; RESP 18; TEMP 36.8; O2SAT 96
[2020-06-26 21:07] VITALS: BP 151/82; PULSE 102
[2020-06-26] MEDS: Melatonin 3 MG TABLET 9 MG PO (21:07)
[2020-06-26] MEDS: OLANZapine 10 MG TABLET 20 MG PO (21:07)
--- NOTE | 2020-06-26 21:49 | HO.PSYCHPN ---
Subjective Subjective Date of Service: 06/26/20 Reason For Visit: Schizophrenia Subjective Notes: 3 Day Interim History: Patient given Bowman warning extensive discussion regarding potential treatment with ECT patient's thought that he continues to suffer from a spiritual attack he is anxious and dysphoric considering ECT denies active self-harm. No clear grounds for commitment patient has been discussing his history in options with his brother and mother Medication Compliance: Yes Mental Status Exam Mental Status Exam Patient Appearance: Unkempt Patient Orientation: Person, Place, Time and Situation Level of Consciousness: Alert Patient Behavior: Guarded, Talkative, Suspicious, Avoidant, Isolative and Good Eye Contact Behavior Comments: Frequent skin picking of his forehead Mood Description: Constricted and Depressed Affect Description: Flat Patient Cognition Impaired: No Ability to Follow Directions: Good Speech Pattern: Spontaneous Speech Memory Description: Intact Hallucinations: None Delusions: Being Controlled and Paranoid Ideation Thought Process: Distracted and Rumination Thought Content: positive for [place], positive for Circumstantial, positive for Perseveration and positive for Preoccupation Depressive Symptoms: Increased Anxiety, Diff. Making Decisions, Difficulty Sleeping, Sleeping More Than Usual, Loss of Int. in Activity, Hopelessness, Feelings of Guilt, Unhappiness, Increased Fatigue, Low Self Esteem, Loss of Energy and Difficulty Concentrating Judgement: Fair Diagnostics Vital Signs (24Hr): Vital Signs - 24 hr 06/26/20 00:40 06/26/20 06:00 06/26/20 08:18 Temperature 96.6 F L Pulse Rate 72 77 Respiratory Rate 18 18 Blood Pressure 113/60 112/60 Pulse Oximetry 96 06/26/20 08:58 06/26/20 18:00 06/26/20 21:07 Temperature 97.9 F 98.2 F Pulse Rate 77 97 102 H Respiratory Rate 18 Blood Pressure 112/60 131/80 151/82 H Pulse Oximetry 94 96 Body Mass Index 32.5 Labs Results: 06/18/20 10:52 06/18/20 10:52 Medications Medications Current Medications Generic Name Dose Route Start Last Admin Trade Name Freq PRN Reason Stop Dose Admin Acetaminophen 650 mg 06/19/20 15:34 Acetaminophen 325 Mg Tablet PO Q6H PRN Headache/Pain Mild Scale (1-3) Al Hydroxide/Mg Hydroxide 30 ml 06/19/20 15:34 Magnesium Hydrox/Alum Hydrox 30 Ml Oral.Susp PO Q6H PRN Heartburn/Nausea Fluoxetine HCl 20 mg 06/26/20 09:00 06/26/20 08:20 Fluoxetine Hcl Oral Solution 20 Mg/5 Ml Solution PO 20 mg DAILY FERNANDO Administration Hydroxyzine HCl 25 mg 06/19/20 15:34 06/22/20 22:16 Hydroxyzine Hcl 25 Mg Tablet PO 25 mg BEDTIME PRN Administration Anxiety Lisinopril 5 mg 06/18/20 09:00 06/26/20 08:18 Lisinopril 5 Mg Tablet PO 5 mg DAILY FERNANDO Administration Protocol Lorazepam 1 mg 06/19/20 15:38 Lorazepam 1 Mg Tablet PO Q6H PRN Anxiety Magnesium Hydroxide 30 ml 06/19/20 15:34 Milk Of Magnesia 30 Ml Oral.Susp PO DAILY PRN Constipation Melatonin 9 mg 06/20/20 21:15 06/26/20 21:07 Melatonin 3 Mg Tablet PO 9 mg BEDTIME FERNANDO Administration Metoprolol Tartrate 25 mg 06/18/20 09:00 06/26/20 21:07 Metoprolol Tartrate 25 Mg Tablet PO 25 mg BID FERNANDO Administration Protocol Olanzapine 20 mg 06/23/20 21:00 06/26/20 21:07 Olanzapine 10 Mg Tablet PO 20 mg BEDTIME FERNANDO Administration Omeprazole 20 mg 06/18/20 06:30 06/26/20 06:20 Omeprazole 20 Mg Capsule. PO 20 mg DAILY@0630 FERNANDO Administration Trazodone HCl 100 mg 06/21/20 17:46 Trazodone Hcl 100 Mg Tablet PO BEDTIME PRN Insomnia Allergies Allergies Allergy/AdvReac Type Severity Reaction Status Date / Time No Known Allergies Allergy Verified 06/17/20 20:38 [No Known Allergies*] Assessment & Plan Assessment & Plan (1) Severe recurrent major depression w/psychotic features, mood-congruent: Status: Acute Code(s): F33.3 - Major depressive disorder, recurrent, severe with psychotic symptoms Assessment and Plan: Continue Prozac increased to 20 mg olanzapine 20 mg patient to hopeless helpless that any medication can help denies any active thoughts of self-harm feels he is somehow being persecuted in someway by bad spirits denies that medication has ever helped this he was willing to consider ECT although after his last course of treatment he immediately went to [facility] went off medication and tends to eventually impulsively leave. Although he is willing to listen that part of his suffering and thinking may relate to a biological condition and putting this in the context his jehovah's witness beliefs he has had a mostly 5 fixed but appears to be delusional belief now times years. He did improve with ECT in the past will get medical clearance if patient agrees to ECT treatment. Labs unremarkable FBS minimally increased EKG QTC 476 question old infarct however unchanged over the past 2-3 years. Patient denies any active substance use. He denies any active thoughts of self-harm Patient continues to ruminate on treatment options he does appear to be significant considering ECT trying to separate biological treatment options from his jehovah's witness believes patient was seen with dialysis social worker cleo [place] consultation for ECT evaluation patient denies (2) OCD (obsessive compulsive disorder): Status: Acute Code(s): F42.9 - Obsessive-compulsive disorder, unspecified Assessment and Plan: cont prozac skin picking continues denies command or intentionality. Continue Olanzapine to 20 mg HS tolerated thus far. (3) Skin-picking disorder: Status: Acute Code(s): F42.4 - Excoriation (skin-picking) disorder Assessment and Plan: Symptoms decreasing, however picking continues, lesions healing. Greater than 50% of the session was spent on counseling and/or coordination of care Reason for contiued inpatient stay Substantial Risk for: harm to self, inability to function and rapid decompensation
[2020-06-27 06:00] VITALS: BP 150/68; PULSE 73; RESP 18; TEMP 36.7; O2SAT 98
[2020-06-27 07:00] VITALS: BMI 42.3
[2020-06-27 08:56] VITALS: BP 160/86; PULSE 112
[2020-06-27] MEDS: FLUoxetine HCl Oral Solution 20 MG/5 ML SOLUTION PO (08:56)
[2020-06-27] MEDS: Metoprolol Tartrate 25 MG TABLET PO ×2 (08:56→21:18)
[2020-06-27] MEDS: Omeprazole 20 MG CAPSULE.DR PO (08:56)
[2020-06-27] MEDS: lisinopriL 5 MG TABLET PO (08:56)
--- NOTE | 2020-06-27 15:23 | HO.PSYCHPN ---
Subjective Subjective Date of Service: 06/27/20 Reason For Visit: Schizophrenia Subjective Notes: Conditional Voluntary and 3 Day Interim History: Patient anxious ruminating on 3 day notice did retract but unclear if willing to continue treatment with depressed ambivalent discussed ECT Anafranil patient tormented much of the day with what he considers spiritual torments Medication Compliance: Yes Mental Status Exam Mental Status Exam Patient Appearance: Unkempt Patient Orientation: Person, Place, Time and Situation Level of Consciousness: Alert Patient Behavior: Guarded, Talkative, Suspicious, Avoidant, Isolative and Good Eye Contact Behavior Comments: Frequent skin picking of his forehead Mood Description: Constricted and Depressed Affect Description: Flat Patient Cognition Impaired: No Ability to Follow Directions: Good Speech Pattern: Spontaneous Speech Memory Description: Intact Hallucinations: None Delusions: Being Controlled and Paranoid Ideation Thought Process: Distracted and Rumination Thought Content: positive for [place], positive for Circumstantial, positive for Perseveration and positive for Preoccupation Depressive Symptoms: Increased Anxiety, Diff. Making Decisions, Difficulty Sleeping, Sleeping More Than Usual, Loss of Int. in Activity, Hopelessness, Feelings of Guilt, Unhappiness, Increased Fatigue, Low Self Esteem, Loss of Energy and Difficulty Concentrating Judgement: Fair Diagnostics Vital Signs (24Hr): Vital Signs - 24 hr 06/26/20 18:00 06/26/20 21:07 06/27/20 06:00 Temperature 98.2 F 98.0 F Pulse Rate 97 102 H 73 Respiratory Rate 18 18 Blood Pressure 131/80 151/82 H 150/68 H Pulse Oximetry 96 98 06/27/20 08:56 Temperature Pulse Rate 112 H Respiratory Rate Blood Pressure 160/86 H Pulse Oximetry Body Mass Index 42.3 Labs Results: 06/18/20 10:52 06/18/20 10:52 Medications Medications Current Medications Generic Name Dose Route Start Last Admin Trade Name Freq PRN Reason Stop Dose Admin Acetaminophen 650 mg 06/19/20 15:34 Acetaminophen 325 Mg Tablet PO Q6H PRN Headache/Pain Mild Scale (1-3) Al Hydroxide/Mg Hydroxide 30 ml 06/19/20 15:34 Magnesium Hydrox/Alum Hydrox 30 Ml Oral.Susp PO Q6H PRN Heartburn/Nausea Fluoxetine HCl 20 mg 06/26/20 09:00 06/27/20 08:56 Fluoxetine Hcl Oral Solution 20 Mg/5 Ml Solution PO 20 mg DAILY FERNANDO Administration Hydroxyzine HCl 25 mg 06/19/20 15:34 06/22/20 22:16 Hydroxyzine Hcl 25 Mg Tablet PO 25 mg BEDTIME PRN Administration Anxiety Lisinopril 5 mg 06/18/20 09:00 06/27/20 08:56 Lisinopril 5 Mg Tablet PO 5 mg DAILY FERNANDO Administration Protocol Lorazepam 1 mg 06/19/20 15:38 Lorazepam 1 Mg Tablet PO Q6H PRN Anxiety Magnesium Hydroxide 30 ml 06/19/20 15:34 Milk Of Magnesia 30 Ml Oral.Susp PO DAILY PRN Constipation Melatonin 9 mg 06/20/20 21:15 06/26/20 21:07 Melatonin 3 Mg Tablet PO 9 mg BEDTIME FERNANDO Administration Metoprolol Tartrate 25 mg 06/18/20 09:00 06/27/20 08:56 Metoprolol Tartrate 25 Mg Tablet PO 25 mg BID FERNANDO Administration Protocol Olanzapine 20 mg 06/23/20 21:00 06/26/20 21:07 Olanzapine 10 Mg Tablet PO 20 mg BEDTIME FERNANDO Administration Omeprazole 20 mg 06/18/20 06:30 06/27/20 08:56 Omeprazole 20 Mg Capsule. PO 20 mg DAILY@0630 FERNANDO Administration Trazodone HCl 100 mg 06/21/20 17:46 Trazodone Hcl 100 Mg Tablet PO BEDTIME PRN Insomnia Allergies Allergies Allergy/AdvReac Type Severity Reaction Status Date / Time No Known Allergies Allergy Verified 06/17/20 20:38 [No Known Allergies*] Assessment & Plan Assessment & Plan (1) Severe recurrent major depression w/psychotic features, mood-congruent: Status: Acute Code(s): F33.3 - Major depressive disorder, recurrent, severe with psychotic symptoms Assessment and Plan: Continue Prozac increased to 20 mg olanzapine 20 mg patient to hopeless helpless that any medication can help denies any active thoughts of self-harm feels he is somehow being persecuted in someway by bad spirits denies that medication has ever helped this he was willing to consider ECT although after his last course of treatment [facility] went off medication and tends to eventually impulsively leave. Although he is willing to listen that part of his suffering and thinking may relate to a biological condition and putting this in the context his baptism beliefs he has had a mostly 5 fixed but appears to be delusional belief now times years. He did improve with ECT in the past will get medical clearance if patient agrees to ECT treatment. Labs unremarkable FBS minimally increased EKG QTC 476 question old infarct however unchanged over the past 2-3 years. Patient denies any active substance use. He denies any active thoughts of self-harm Patient continues to ruminate on treatment options he does appear to be significant considering ECT trying to separate biological treatment options from his baptism believes patient was seen with health social work professor cleo [place] consultation for ECT evaluation patient denies (2) OCD (obsessive compulsive disorder): Status: Acute Code(s): F42.9 - Obsessive-compulsive disorder, unspecified Assessment and Plan: cont prozac skin picking continues denies command or intentionality. Continue Olanzapine to 20 mg HS tolerated thus far. (3) Skin-picking disorder: Status: Acute Code(s): F42.4 - Excoriation (skin-picking) disorder Assessment and Plan: Symptoms decreasing, however picking continues, lesions healing. Greater than 50% of the session was spent on counseling and/or coordination of care Reason for contiued inpatient stay Substantial Risk for: harm to self and rapid decompensation
[2020-06-27 18:50] VITALS: BP 145/87; PULSE 91; TEMP 36.9
[2020-06-27 20:48] VITALS: BP 130/89; PULSE 110
[2020-06-27 21:18] VITALS: BP 130/89; PULSE 110
[2020-06-27] MEDS: Melatonin 3 MG TABLET 9 MG PO (21:18)
[2020-06-27] MEDS: OLANZapine 10 MG TABLET 20 MG PO (21:18)
[2020-06-28] MEDS: Omeprazole 20 MG CAPSULE.DR PO (06:38)
[2020-06-28 07:00] VITALS: BP 103/52; PULSE 67; RESP 18; TEMP 36.6; O2SAT 95
--- NOTE | 2020-06-28 08:00 | ECG_ITS ---
Test Reason : PREOP, ON ZYPREXA Blood Pressure : / mmHG Vent. Rate : 076 BPM Atrial Rate : 076 BPM P-R Int : 130 ms QRS Dur : 108 ms QT Int : 388 ms P-R-T Axes : 015 025 030 degrees QTc Int : 436 ms Normal sinus rhythm Lateral infarct , age undetermined Abnormal ECG When compared with ECG of 18-JUN-2020 01:53, Criteria for inferior infarct not present. Referred By: Erickson Deng Electronically Signed By:Dannie Bass
[2020-06-28 08:32] VITALS: BP 124/64; PULSE 83
[2020-06-28] MEDS: Metoprolol Tartrate 25 MG TABLET PO ×2 (08:32→21:24)
[2020-06-28 08:33] VITALS: BP 124/64; PULSE 83
[2020-06-28] MEDS: lisinopriL 5 MG TABLET PO (08:33)
[2020-06-28] MEDS: FLUoxetine HCl Oral Solution 20 MG/5 ML SOLUTION PO (08:35)
[2020-06-28] MEDS: Nicotine 21 MG PATCH.TD24 TRANSDERMA (11:54)
[2020-06-28] MEDS: LORazepam 1 MG TABLET PO (12:37)
--- NOTE | 2020-06-28 13:43 | HO.PSYCHPN ---
Subjective Subjective Date of Service: 06/28/20 Reason For Visit: Schizophrenia Subjective Notes: Conditional Voluntary Interim History: Patient did better with the addition of lorazepam and nicotine less anxious was able to consent to ECT has started on Anafranil for severe anxiety and OCD The patient has a history of multiple failures of treatment including Paxil sertraline mirtazapine fluoxetine olanzapine Seroquel Rexulti. The patient has had good response to ECT in the past he has never been on Anafranil patient anxious ruminating depressed chronic delusions related to feeling he is religiously persecuted Medication Compliance: Yes Attending Groups: No Mental Status Exam Mental Status Exam Patient Appearance: Unkempt Patient Orientation: Person, Place, Time and Situation Level of Consciousness: Alert Patient Behavior: Guarded, Talkative, Suspicious, Avoidant, Distractible and Isolative Behavior Comments: Frequent skin picking of his forehead Mood Description: Constricted, Depressed, Anxious and Apprehensive Affect Description: Anxious, Flat, Nervous and Apprehensive Patient Cognition Impaired: No Ability to Follow Directions: Good Speech Pattern: Spontaneous Speech Memory Description: Intact Hallucinations: None Delusions: Being Controlled and Paranoid Ideation Thought Process: Distracted and Rumination Thought Content: positive for [place], positive for Circumstantial, positive for Perseveration and positive for Preoccupation Depressive Symptoms: Increased Anxiety, Diff. Making Decisions, Difficulty Sleeping, Sleeping More Than Usual, Loss of Int. in Activity, Hopelessness, Feelings of Guilt, Unhappiness, Increased Fatigue, Low Self Esteem, Loss of Energy and Difficulty Concentrating Judgement: Fair Diagnostics Vital Signs (24Hr): Vital Signs - 24 hr 06/27/20 18:50 06/27/20 20:48 06/27/20 21:18 Temperature 98.4 F Pulse Rate 91 110 H 110 H Respiratory Rate Blood Pressure 145/87 H 130/89 130/89 Pulse Oximetry 06/28/20 07:00 06/28/20 08:32 06/28/20 08:33 Temperature 97.9 F Pulse Rate 67 83 83 Respiratory Rate 18 Blood Pressure 103/52 L 124/64 124/64 Pulse Oximetry 95 Body Mass Index 42.3 Labs Results: 06/18/20 10:52 06/18/20 10:52 Medications Medications Current Medications Generic Name Dose Route Start Last Admin Trade Name Freq PRN Reason Stop Dose Admin Acetaminophen 650 mg 06/19/20 15:34 Acetaminophen 325 Mg Tablet PO Q6H PRN Headache/Pain Mild Scale (1-3) Al Hydroxide/Mg Hydroxide 30 ml 06/19/20 15:34 Magnesium Hydrox/Alum Hydrox 30 Ml Oral.Susp PO Q6H PRN Heartburn/Nausea Clomipramine HCl 25 mg 06/28/20 21:00 Clomipramine Hcl 25 Mg Capsule PO BEDTIME FERNANDO Fluoxetine HCl 20 mg 06/26/20 09:00 06/28/20 08:35 Fluoxetine Hcl Oral Solution 20 Mg/5 Ml Solution PO 20 mg DAILY FERNANDO Administration Hydroxyzine HCl 25 mg 06/19/20 15:34 06/22/20 22:16 Hydroxyzine Hcl 25 Mg Tablet PO 25 mg BEDTIME PRN Administration Anxiety Lisinopril 5 mg 06/18/20 09:00 06/28/20 08:33 Lisinopril 5 Mg Tablet PO 5 mg DAILY FERNANDO Administration Protocol Lorazepam 1 mg 06/19/20 15:38 06/28/20 12:37 Lorazepam 1 Mg Tablet PO 1 mg Q6H PRN Administration Anxiety Magnesium Hydroxide 30 ml 06/19/20 15:34 Milk Of Magnesia 30 Ml Oral.Susp PO DAILY PRN Constipation Melatonin 9 mg 06/20/20 21:15 06/27/20 21:18 Melatonin 3 Mg Tablet PO 9 mg BEDTIME FERNANDO Administration Metoprolol Tartrate 25 mg 06/18/20 09:00 06/28/20 08:32 Metoprolol Tartrate 25 Mg Tablet PO 25 mg BID FERNANDO Administration Protocol Nicotine 21 mg 06/29/20 09:00 06/28/20 11:54 Nicotine 21 Mg Patch.Td24 TRANSDERMA 21 mg DAILY FERNANDO Administration Nicotine Polacrilex 2 mg 06/28/20 11:43 06/28/20 11:54 Nicotine Polacrilex 2 Mg Lozenge BUCCAL 2 mg Q2H PRN Administration Nicotine Cravings Olanzapine 20 mg 06/23/20 21:00 06/27/20 21:18 Olanzapine 10 Mg Tablet PO 20 mg BEDTIME FERNANDO Administration Omeprazole 20 mg 06/18/20 06:30 06/28/20 06:38 Omeprazole 20 Mg Capsule. PO 20 mg DAILY@0630 FERNANDO Administration Trazodone HCl 100 mg 06/21/20 17:46 Trazodone Hcl 100 Mg Tablet PO BEDTIME PRN Insomnia Allergies Allergies Allergy/AdvReac Type Severity Reaction Status Date / Time No Known Allergies Allergy Verified 06/17/20 20:38 [No Known Allergies*] Assessment & Plan Assessment & Plan (1) Severe recurrent major depression w/psychotic features, mood-congruent: Status: Acute Code(s): F33.3 - Major depressive disorder, recurrent, severe with psychotic symptoms Assessment and Plan: Patient agreeable to ECT need medical clearance review EKG some abnormalities noted no change from previous patient has a history of no ongoing response to medication agreeable to starting Anafranil in addition to ECT will recheck EKG (2) OCD (obsessive compulsive disorder): Status: Acute Code(s): F42.9 - Obsessive-compulsive disorder, unspecified Assessment and Plan: cont prozac skin picking continues denies command or intentionality. Continue Olanzapine to 20 mg HS tolerated thus far. (3) Skin-picking disorder: Status: Acute Code(s): F42.4 - Excoriation (skin-picking) disorder Assessment and Plan: Symptoms decreasing, however picking continues, lesions healing. Greater than 50% of the session was spent on counseling and/or coordination of care Reason for contiued inpatient stay Substantial Risk for: harm to self and rapid decompensation
[2020-06-28 17:10] VITALS: BP 108/56; PULSE 87; TEMP 36.4
[2020-06-28 21:02] VITALS: BP 122/78; PULSE 110
[2020-06-28 21:24] VITALS: BP 122/78; PULSE 110
[2020-06-28] MEDS: Melatonin 3 MG TABLET 9 MG PO (21:24)
[2020-06-28] MEDS: clomiPRAMINE HCl 25 MG CAPSULE PO (21:24)
[2020-06-28] MEDS: OLANZapine 10 MG TABLET 20 MG PO (21:24)
--- NOTE | 2020-06-29 | ECG_ITS ---
Test Reason : ect Blood Pressure : / mmHG Vent. Rate : 096 BPM Atrial Rate : 096 BPM P-R Int : 126 ms QRS Dur : 102 ms QT Int : 368 ms P-R-T Axes : 058 027 013 degrees QTc Int : 464 ms Normal sinus rhythm Possible Left atrial enlargement Possible Lateral infarct , age undetermined Inferior infarct , age undetermined Abnormal ECG When compared to the previous EKG of Criteria for inferior infarct present Referred By: Rosio Enriquez Electronically Signed By:MATTHIEU MCCULLOUGH MD
[2020-06-29 06:38] VITALS: BP 122/68; PULSE 61; TEMP 36.4
[2020-06-29 08:15] VITALS: BP 128/60; PULSE 74; RESP 16; TEMP 37.1; O2SAT 97
[2020-06-29] MEDS: Nicotine 21 MG PATCH.TD24 TRANSDERMA (08:15)
[2020-06-29] MEDS: Omeprazole 20 MG CAPSULE.DR PO (08:15)
[2020-06-29 08:16] VITALS: BP 122/68; BP 128/68; PULSE 61; PULSE 74
[2020-06-29] MEDS: FLUoxetine HCl Oral Solution 20 MG/5 ML SOLUTION PO (08:16)
[2020-06-29] MEDS: Metoprolol Tartrate 25 MG TABLET PO ×2 (08:16→20:57)
[2020-06-29] MEDS: lisinopriL 5 MG TABLET PO (08:16)
--- NOTE | 2020-06-29 12:31 | P.PNPSI_ITS ---
Subjective Subjective Date of Service: 06/29/20 Reason For Visit: Schizophrenia Subjective Notes: Conditional Voluntary Interim History: Rodríguez had no immediate concerns. He is on board with having ECT and is hopeful that it will be helpful. He as somewhat withdrawn today, spending much of the day in bed. Medication Compliance: Yes Side effects from medications: No Attending Groups: No Review of Systems Acute medical concerns: No Medical Review of Systems: unchanged Mental Status Exam Mental Status Exam Patient Appearance: Unkempt Patient Orientation: Person, Place, Time and Situation Level of Consciousness: Alert Patient Behavior: Guarded, Talkative, Suspicious, Avoidant, Distractible and Isolative Behavior Comments: Frequent skin picking of his forehead Mood Description: Constricted, Depressed, Anxious and Apprehensive Affect Description: Anxious, Flat, Nervous and Apprehensive Patient Cognition Impaired: No Ability to Follow Directions: Good Speech Pattern: Spontaneous Speech Memory Description: Intact Hallucinations: None Delusions: Being Controlled and Paranoid Ideation Thought Process: Distracted and Rumination Thought Content: positive for [place], positive for Circumstantial, positive fo r Perseveration, positive for Preoccupation, negative for Suicidal Ideation and negative for Homicidal Ideation Depressive Symptoms: Increased Anxiety, Diff. Making Decisions, Difficulty Sleep ing, Sleeping More Than Usual, Loss of Int. in Activity, Hopelessness, Feelings of Guilt, Unhappiness, Increased Fatigue, Low Self Esteem, Loss of Energy and Difficulty Concentrating Abnormal Motor Activity Signs and Symptoms: Psychomotor Retardation Judgement: Fair Diagnostics Vital Signs (24Hr): Vital Signs - 24 hr 06/28/20 17:10 06/28/20 21:02 06/28/20 21:24 Temperature 97.6 F Pulse Rate 87 110 H 110 H Respiratory Rate Blood Pressure 108/56 L 122/78 122/78 Pulse Oximetry 06/29/20 06:38 06/29/20 08:15 06/29/20 08:16 Temperature 97.5 F 98.8 F Pulse Rate 61 74 61 Respiratory Rate 16 Blood Pressure 122/68 128/60 122/68 Pulse Oximetry 97 Body Mass Index 42.3 Labs Results: 06/18/20 10:52 06/18/20 10:52 Medications Medications Current Medications Generic Name Dose Route Start Last Admin Trade Name Freq PRN Reason Stop Dose Admin Acetaminophen 650 mg 06/19/20 15:34 Acetaminophen 325 Mg Tablet PO Q6H PRN Headache/Pain Mild Scale (1-3) Al Hydroxide/Mg Hydroxide 30 ml 06/19/20 15:34 Magnesium Hydrox/Alum Hydrox 30 Ml Oral.Susp PO Q6H PRN Heartburn/Nausea Clomipramine HCl 25 mg 06/28/20 21:00 06/28/20 21:24 Clomipramine Hcl 25 Mg Capsule PO 25 mg BEDTIME FERNANDO Administration Fluoxetine HCl 20 mg 06/26/20 09:00 06/29/20 08:16 Fluoxetine Hcl Oral Solution 20 Mg/5 Ml Solution PO 20 mg DAILY FERNANDO Administration Hydroxyzine HCl 25 mg 06/19/20 15:34 06/22/20 22:16 Hydroxyzine Hcl 25 Mg Tablet PO 25 mg BEDTIME PRN Administration Anxiety Lisinopril 5 mg 06/18/20 09:00 06/29/20 08:16 Lisinopril 5 Mg Tablet PO 5 mg DAILY FERNANDO Administration Protocol Lorazepam 1 mg 06/19/20 15:38 06/28/20 12:37 Lorazepam 1 Mg Tablet PO 1 mg Q6H PRN Administration Anxiety Magnesium Hydroxide 30 ml 06/19/20 15:34 Milk Of Magnesia 30 Ml Oral.Susp PO DAILY PRN Constipation Melatonin 9 mg 06/20/20 21:15 06/28/20 21:24 Melatonin 3 Mg Tablet PO 9 mg BEDTIME FERNANDO Administration Metoprolol Tartrate 25 mg 06/18/20 09:00 06/29/20 08:16 Metoprolol Tartrate 25 Mg Tablet PO 25 mg BID FERNANDO Administration Protocol Nicotine 21 mg 06/29/20 09:00 06/29/20 08:15 Nicotine 21 Mg Patch.Td24 TRANSDERMA 21 mg DAILY FERNANDO Administration Nicotine Polacrilex 2 mg 06/28/20 11:43 06/28/20 11:54 Nicotine Polacrilex 2 Mg Lozenge BUCCAL 2 mg Q2H PRN Administration Nicotine Cravings Olanzapine 20 mg 06/23/20 21:00 06/28/20 21:24 Olanzapine 10 Mg Tablet PO 20 mg BEDTIME FERNANDO Administration Omeprazole 20 mg 06/18/20 06:30 06/29/20 08:15 Omeprazole 20 Mg Capsule. PO 20 mg DAILY@0630 FERNANDO Administration Trazodone HCl 100 mg 06/21/20 17:46 Trazodone Hcl 100 Mg Tablet PO BEDTIME PRN Insomnia Allergies Allergies Allergy/AdvReac Type Severity Reaction Status Date / Time No Known Allergies Allergy Verified 06/17/20 20:38 [No Known Allergies*] Assessment & Plan Assessment & Plan (1) Severe recurrent major depression w/psychotic features, mood-congruent: Status: Acute Code(s): F33.3 - Major depressive disorder, recurrent, severe with psychotic symptoms Assessment and Plan: Patient agreeable to ECT need medical clearance review EKG some abnormalities noted no change from previous patient has a history of no ongoing response to m edication agreeable to starting Anafranil in addition to ECT will recheck EKG (2) OCD (obsessive compulsive disorder): Status: Acute Code(s): F42.9 - Obsessive-compulsive disorder, unspecified Assessment and Plan: cont prozac skin picking continues denies command or intentionality. Continue Olanzapine to 20 mg HS tolerated thus far. (3) Skin-picking disorder: Status: Acute Code(s): F42.4 - Excoriation (skin-picking) disorder Assessment and Plan: Symptoms decreasing, however picking continues, lesions healing. Greater than 50% of the session was spent on counseling and/or coordination of care Patient educated on: diagnosis, medication risk/benefits and ECT Informed Consent: further education needed Reason for contiued inpatient stay Substantial Risk for: inability to function and rapid decompensation
[2020-06-29 12:50] LABS: Troponin-I High Sensitivity 4.1 ng/L (<3.5-35.0)
[2020-06-29 18:00] VITALS: BP 146/84; PULSE 101; RESP 18; TEMP 36.7; O2SAT 94
--- NOTE | 2020-06-29 19:01 | P.CONIM_ITS ---
History of Present Illness Data of Consult Service Date: 06/29/20 Requesting physician: Erickson Deng Primary Care Provider: Jordan Morgan MD [facility] Reason for consult: ECT clearance Reason for consult: ECT clearance 67-year-old male with past medical history of depression anxiety, HLD who is currently being managed for depression in [facility]. We are asked to see patient for ECT clearance. Patient denies any chest pain, no shortness of breath, no history of coronary artery disease or heart attacks in the past, denies any history of seizures, denies any abdominal pain nausea or vomiting, no diarrhea or constipation, no urinary symptoms and no lower extremity edema. Patient reports that he has underwent ECT past with no complications. Patient's vitals at this time within normal range with no abnormal findings Past medical history as below and confirmed with patient Review of Systems Review of Systems: Yes all other systems are reviewed and are negative [facility] Medical History Anxiety Depression GERD (gastroesophageal reflux disease) Hernia HTN (hypertension) OCD (obsessive compulsive disorder) JAMES (obstructive sleep apnea) Pulmonary emboli Severe recurrent major depression w/psychotic features, mood-congruent Skin-picking disorder TBI (traumatic brain injury) Social History Household Members: Family Household Members Other:: Brother Housing: House Do you presently have visiting nurse or other home services: No Alcohol intake: former Smoking Status: Current every day smoker Tobacco Type: Cigarette Packs Per Day: 1 Cigarettes Per Day: 20.0 Years Smoked: 18 Smoked in Last 30 Days: Yes Smoking Quit Date: N/A Patient Interested in Nicotine Replacement: Yes Patient Given Instructions on How to Stop Smoking: Yes Date Education Initiated: 06/19/20 Second Hand Smoke Exposure: No Use of substances other than those prescribed or required for medical reasons: No Substance Use Type: Unknown Substance Use Type Other:: Reports he does not use drug or cannabis regularly Last Used Substance: Unknown Last Used Substance Other:: States he may have smoked cigarette with cannabis Currently Displaying Signs/Symptoms of Drug Intoxication Withdrawal: No Any prior treatment program specific to substance use: Yes (10 years ago for alcohol) Have you been hit, kicked, punched, or otherwise hurt by someone within the past year? If so, by whom?: No Do you feel safe in your current relationship?: No Current Relationship Is there a partner from a previous relationship who is making you feel unsafe now?: No Are you made to feel afraid or neglected: No Spiritual Healthcare Practices: No Restorationist Healthcare Practices: No Cultural Healthcare Practices: No Advance Directives: No Do you have thoughts of harming others: None Do you have a plan to hurt others: No Plan Recently lost weight without trying: No service: No Sexual orientation: Straight/Heterosexual Meds Allergies Allergy/AdvReac Type Severity Reaction Status Date / Time No Known Allergies Allergy Verified 06/17/20 20:38 [No Known Allergies*] Active Medications: Current Medications Generic Name Dose Route Start Last Admin Trade Name Freq PRN Reason Stop Dose Admin Acetaminophen 650 mg 06/19/20 15:34 Acetaminophen 325 Mg Tablet PO Q6H PRN Headache/Pain Mild Scale (1-3) Al Hydroxide/Mg Hydroxide 30 ml 06/19/20 15:34 Magnesium Hydrox/Alum Hydrox 30 Ml Oral.Susp PO Q6H PRN Heartburn/Nausea Clomipramine HCl 25 mg 06/28/20 21:00 06/28/20 21:24 Clomipramine Hcl 25 Mg Capsule PO 25 mg BEDTIME FERNANDO Administration Fluoxetine HCl 20 mg 06/26/20 09:00 06/29/20 08:16 Fluoxetine Hcl Oral Solution 20 Mg/5 Ml Solution PO 20 mg DAILY FERNANDO Administration Hydroxyzine HCl 25 mg 06/19/20 15:34 06/22/20 22:16 Hydroxyzine Hcl 25 Mg Tablet PO 25 mg BEDTIME PRN Administration Anxiety Lisinopril 5 mg 06/18/20 09:00 06/29/20 08:16 Lisinopril 5 Mg Tablet PO 5 mg DAILY FERNANDO Administration Protocol Lorazepam 1 mg 06/19/20 15:38 06/28/20 12:37 Lorazepam 1 Mg Tablet PO 1 mg Q6H PRN Administration Anxiety Magnesium Hydroxide 30 ml 06/19/20 15:34 Milk Of Magnesia 30 Ml Oral.Susp PO DAILY PRN Constipation Melatonin 9 mg 06/20/20 21:15 06/28/20 21:24 Melatonin 3 Mg Tablet PO 9 mg BEDTIME FERNANDO Administration Metoprolol Tartrate 25 mg 06/18/20 09:00 06/29/20 08:16 Metoprolol Tartrate 25 Mg Tablet PO 25 mg BID FERNANDO Administration Protocol Nicotine 21 mg 04/24/21 09:00 06/29/20 08:15 Nicotine 21 Mg Patch.Td24 TRANSDERMA 21 mg DAILY FERNANDO Administration Nicotine Polacrilex 2 mg 06/28/20 11:43 06/28/20 11:54 Nicotine Polacrilex 2 Mg Lozenge BUCCAL 2 mg Q2H PRN Administration Nicotine Cravings Olanzapine 20 mg 06/23/20 21:00 06/28/20 21:24 Olanzapine 10 Mg Tablet PO 20 mg BEDTIME FERNANDO Administration Omeprazole 20 mg 06/18/20 06:30 06/29/20 08:15 Omeprazole 20 Mg Capsule. PO 20 mg DAILY@0630 FERNANDO Administration Trazodone HCl 100 mg 06/21/20 17:46 Trazodone Hcl 100 Mg Tablet PO BEDTIME PRN Insomnia Home Medications Medication Instructions Recorded Confirmed Last Taken Type apixaban [Eliquis] 1 tab PO BID 06/18/20 06/18/20 Unknown History lisinopril 1 tab PO DAILY 06/18/20 06/18/20 Unknown History metoprolol tartrate 1 tab PO BID 06/18/20 06/18/20 Unknown History omeprazole 1 cap PO DAILY 06/18/20 06/18/20 Unknown History paroxetine HCl 1 tab PO DAILY 06/19/20 Unknown History ziprasidone HCl 1 cap PO BID 06/19/20 Unknown History Physical Exam Vital Signs and Narrative: Vital Signs: Last Vital Signs Temp 98.8 F 06/29/20 08:15 Pulse 74 06/29/20 08:16 Resp 16 06/29/20 08:15 BP 128/68 06/29/20 08:16 Pulse Ox 97 06/29/20 08:15 Body Mass Index 42.3 Const: General: cooperative and no acute distress Orientation/ consciousness: patient oriented x3 Eyes: General: appearance normal, both eyes and all related structures Resp: Effort & Inspection: normal respiratory effort and able to speak in complete sentences Cardio: Rate: regular rate Rhythm: regular rhythm GI: Palpation (GI): Soft to palpation Auscultation: normal bowel sounds Skin: General skin exam: no rashes or lesions noted Neuro: General: patient oriented x3 Cognition (Neuro): normal cognition Extrem: General: Yes normal to inspection and Yes no pedal edema Results Labs CBC and Chem 7: 06/18/20 10:52 06/18/20 10:52 Labs: Laboratory Results - last 24 hr 06/29/20 11:57 Troponin I High Sens 4.1 Assessment and Plan (1) Preoperative clearance: Status: Acute 67-year-old male with past medical history of generalized anxiety disorder, recurrent major depressive disorder, BPH, transition cell carcinoma who is [facility] currently [facility] of [facility]. We are consulted for ECT clearance #Medical clearance for ECT - Pt has had ECT in the past with no compilcations - His EKG from 06/[address] elevation in V2 with no other significant abnormality - Pt denies chest pain - Rpt EKG done this AM shows no acute changes concerning for ACS. - Troponin negative - At this time and based on past medical history, in hospital work up, pt at low risk for any complications from ECT and I see no contraindications to receiving ECT thank you for this consult
[2020-06-29] MEDS: OLANZapine 10 MG TABLET 20 MG PO (20:56)
[2020-06-29] MEDS: Melatonin 3 MG TABLET 9 MG PO (20:56)
[2020-06-29 20:57] VITALS: BP 119/74; PULSE 101
[2020-06-29] MEDS: clomiPRAMINE HCl 25 MG CAPSULE PO (20:57)
[2020-06-30 06:00] VITALS: BP 122/72; PULSE 62; RESP 16; TEMP 36.1; O2SAT 94
[2020-06-30] MEDS: Omeprazole 20 MG CAPSULE.DR PO (06:50)
[2020-06-30 08:09] VITALS: BP 122/72; PULSE 62
[2020-06-30] MEDS: FLUoxetine HCl Oral Solution 20 MG/5 ML SOLUTION PO (08:09)
[2020-06-30] MEDS: lisinopriL 5 MG TABLET PO (08:09)
[2020-06-30] MEDS: Nicotine 21 MG PATCH.TD24 TRANSDERMA (08:09)
[2020-06-30 08:10] VITALS: BP 122/72; PULSE 62
[2020-06-30] MEDS: Metoprolol Tartrate 25 MG TABLET PO ×2 (08:10→20:18)
--- NOTE | 2020-06-30 16:26 | HO.PSYCHPN ---
Subjective Subjective Date of Service: 06/30/20 Reason For Visit: Schizophrenia Subjective Notes: Conditional Voluntary Interim History: Rodríguez had no immediate concerns. He is on board with having ECT and is hopeful that it will be helpful. He as somewhat withdrawn today, spending much of the day in bed. He was encouraged to get up and to take a shower. He agreed. Medication Compliance: Yes Side effects from medications: No Attending Groups: No Review of Systems Acute medical concerns: No Medical Review of Systems: unchanged Mental Status Exam Mental Status Exam Patient Appearance: Unkempt Patient Orientation: Person, Place, Time and Situation Level of Consciousness: Alert Patient Behavior: Guarded, Talkative, Suspicious, Avoidant, Distractible and Isolative Behavior Comments: Frequent skin picking of his forehead Mood Description: Constricted, Depressed, Anxious and Apprehensive Affect Description: Anxious, Flat, Nervous and Apprehensive Patient Cognition Impaired: No Ability to Follow Directions: Good Speech Pattern: Spontaneous Speech Memory Description: Intact Hallucinations: None Delusions: Being Controlled and Paranoid Ideation Thought Process: Distracted and Rumination Thought Content: positive for [place], positive for Circumstantial, positive for Perseveration, positive for Preoccupation, negative for Suicidal Ideation and negative for Homicidal Ideation Depressive Symptoms: Increased Anxiety, Diff. Making Decisions, Difficulty Sleeping, Sleeping More Than Usual, Loss of Int. in Activity, Hopelessness, Feelings of Guilt, Unhappiness, Increased Fatigue, Low Self Esteem, Loss of Energy and Difficulty Concentrating Abnormal Motor Activity Signs and Symptoms: Psychomotor Retardation Judgement: Fair Diagnostics Vital Signs (24Hr): Vital Signs - 24 hr 06/29/20 18:00 06/29/20 20:57 06/30/20 06:00 Temperature 98.1 F 97 F Pulse Rate 101 H 101 H 62 Respiratory Rate 18 16 Blood Pressure 146/84 H 119/74 122/72 Pulse Oximetry 94 94 06/30/20 08:09 06/30/20 08:10 Temperature Pulse Rate 62 62 Respiratory Rate Blood Pressure 122/72 122/72 Pulse Oximetry Body Mass Index 42.3 Labs Results: 06/18/20 10:52 06/18/20 10:52 Labs: Laboratory Results - last 48 hr 06/29/20 11:57 Troponin I High Sens 4.1 Medications Medications Current Medications Generic Name Dose Route Start Last Admin Trade Name Freq PRN Reason Stop Dose Admin Acetaminophen 650 mg 06/19/20 15:34 Acetaminophen 325 Mg Tablet PO Q6H PRN Headache/Pain Mild Scale (1-3) Al Hydroxide/Mg Hydroxide 30 ml 06/19/20 15:34 Magnesium Hydrox/Alum Hydrox 30 Ml Oral.Susp PO Q6H PRN Heartburn/Nausea Clomipramine HCl 25 mg 06/28/20 21:00 06/29/20 20:57 Clomipramine Hcl 25 Mg Capsule PO 25 mg BEDTIME FERNANDO Administration Fluoxetine HCl 20 mg 06/26/20 09:00 06/30/20 08:09 Fluoxetine Hcl Oral Solution 20 Mg/5 Ml Solution PO 20 mg DAILY FERNANDO Administration Hydroxyzine HCl 25 mg 06/19/20 15:34 06/22/20 22:16 Hydroxyzine Hcl 25 Mg Tablet PO 25 mg BEDTIME PRN Administration Anxiety Lisinopril 5 mg 06/18/20 09:00 06/30/20 08:09 Lisinopril 5 Mg Tablet PO 5 mg DAILY FERNANDO Administration Protocol Lorazepam 1 mg 06/19/20 15:38 06/28/20 12:37 Lorazepam 1 Mg Tablet PO 1 mg Q6H PRN Administration Anxiety Magnesium Hydroxide 30 ml 06/19/20 15:34 Milk Of Magnesia 30 Ml Oral.Susp PO DAILY PRN Constipation Melatonin 9 mg 06/20/20 21:15 06/29/20 20:56 Melatonin 3 Mg Tablet PO 9 mg BEDTIME FERNANDO Administration Metoprolol Tartrate 25 mg 06/18/20 09:00 06/30/20 08:10 Metoprolol Tartrate 25 Mg Tablet PO 25 mg BID FERNANDO Administration Protocol Nicotine 21 mg 06/29/20 09:00 06/30/20 08:09 Nicotine 21 Mg Patch.Td24 TRANSDERMA 21 mg DAILY FERNANDO Administration Nicotine Polacrilex 2 mg 06/28/20 11:43 06/28/20 11:54 Nicotine Polacrilex 2 Mg Lozenge BUCCAL 2 mg Q2H PRN Administration Nicotine Cravings Olanzapine 20 mg 06/23/20 21:00 06/29/20 20:56 Olanzapine 10 Mg Tablet PO 20 mg BEDTIME FERNANDO Administration Omeprazole 20 mg 06/18/20 06:30 06/30/20 06:50 Omeprazole 20 Mg Capsule.Dr PO 20 mg DAILY@0630 FERNANDO Administration Trazodone HCl 100 mg 06/21/20 17:46 Trazodone Hcl 100 Mg Tablet PO BEDTIME PRN Insomnia Allergies Allergies Allergy/AdvReac Type Severity Reaction Status Date / Time No Known Allergies Allergy Verified 06/17/20 20:38 [No Known Allergies*] Assessment & Plan Assessment & Plan (1) Severe recurrent major depression w/psychotic features, mood-congruent: Status: Acute Code(s): F33.3 - Major depressive disorder, recurrent, severe with psychotic symptoms Assessment and Plan: No change to current treatment plan Greater than 50% of the session was spent on counseling and/or coordination of care Patient educated on: diagnosis and medication risk/benefits Informed Consent: further education needed Reason for contiued inpatient stay Substantial Risk for: inability to function and rapid decompensation
[2020-06-30 17:09] VITALS: BP 119/56; PULSE 106; RESP 18; TEMP 36.7; O2SAT 94
[2020-06-30] MEDS: OLANZapine 10 MG TABLET 20 MG PO (20:17)
[2020-06-30] MEDS: Melatonin 3 MG TABLET 9 MG PO (20:17)
[2020-06-30 20:18] VITALS: BP 126/75; PULSE 121
[2020-06-30] MEDS: clomiPRAMINE HCl 25 MG CAPSULE PO (20:18)
[2020-07-01] VITALS (14 sets, daily range): BP systolic 107–175; BP diastolic 54–100; PULSE 70–106; RESP 16–18; TEMP 36.5–37; O2SAT 93–97
--- NOTE | 2020-07-01 09:16 | MHC.SHP ---
Pre-Procedural Eval Section A The patient is an INPATIENT: Yes Changes since office visit: No Cold of Flu in the past 2 weeks, No New Medical Problems, No Changes in Medication and No Patient answered all questions The History & Physical has been completed within 30 days and I have reviewed it.: Yes Section B Chief Complaint: Schizophrenia Details of Present Illness: The patient reported exacerbation of depressive symptoms and historically, he did very well on ECT Relevant Family History (Specify if Yes): No Relevant Social History: None Present Medications: see Short Stay Collaborative assessment Medical History: No relevant PMH History of Previous Operations: No relevant previous surgery Allergies: Allergies Allergy/AdvReac Type Severity Reaction Status Date / Time No Known Allergies Allergy Verified 06/17/20 20:38 [No Known Allergies*] Review of Systems Sugical H&P ROS: Negative: Constitution, Cardiovascular, Respiratory, Neurological, Psychiatric, Hem-Onc, Allergic/Immunologic, Gastrointestinal, Genitourinary, Musculoskeletal, Integumentary, Endocrine and Eyes/Ears/Nose/Throat Exam Surgical H&P Exam: Normal: HEENT, Normal: Heart, Normal: Lungs, Normal: Extremities, Normal: Abdomen, Normal: Skin and Normal: Neurological Plan Diagnosis/Plan: Unchanged I have reviewed the history and physical and performed a pertinent physical examination on my patient. No changes have occurred unless specified.
--- NOTE | 2020-07-01 09:18 | P.PCN_ITS ---
ECT Procedure Note Diagnosis/Treatment Date of Service: 07/01/20 Diagnosis: Major Depressive Disorder Current Treatment Number: 1 Treatment: Series Interval Clinical Notes: The patient was admittedd intpatient due to e xacerbation of depression and historically, ECT has helped him ECT Settings Device: THYMATRON DGx Electrode Placement: Bifrontal Program/Pulse Width: 0.50 Energy Percent: 100 Seizure Duration By Motor Observation (in seconds): 42 Medications Administration General Anesthetic: Etomidate (16) Muscle Relaxant: Succinylcholine (100) Ancillary Medications Analgesics: Torodol - Pre ECT Anti-emetics: Zofran - Pre ECT Airway Management Airway Management: Bag Mask Ventilation Treatment Recommendations No Changes Recommended: No change Pt Tolerated Procedure w/o Issue: Yes
--- NOTE | 2020-07-01 09:50 | P.CONAN_ITS ---
[facility] Active Problems Active Problems: All Active Problems (Updated 06/29/20 @ 19:05 by Zaki Juan MD) Preoperative clearance (Acute) Skin-picking disorder (Acute) OCD (obsessive compulsive disorder) (Acute) Severe recurrent major depression w/psychotic features, mood-congruent (Acute) HTN (hypertension) (Acute) JAMES (obstructive sleep apnea) (Acute) GERD (gastroesophageal reflux disease) (Acute) Psychosis (Acute) Anxiety (Acute) Past Medical History Medical History Anxiety Depression GERD (gastroesophageal reflux disease) Hernia HTN (hypertension) OCD (obsessive compulsive disorder) JAMES (obstructive sleep apnea) Pulmonary emboli Severe recurrent major depression w/psychotic features, mood-congruent Skin-picking disorder TBI (traumatic brain injury) Social History Social History Household Members: Family Household Members Other:: Brother Housing: House Do you presently have visiting nurse or other home services: No Alcohol intake: former Smoking Status: Current every day smoker Tobacco Type: Cigarette Packs Per Day: 1 Cigarettes Per Day: 20.0 Years Smoked: 18 Smoked in Last 30 Days: Yes Smoking Quit Date: N/A Patient Interested in Nicotine Replacement: Yes Patient Given Instructions on How to Stop Smoking: Yes Date Education Initiated: 06/19/20 Second Hand Smoke Exposure: No Use of substances other than those prescribed or required for medical reasons: No Substance Use Type: Unknown Substance Use Type Other:: Reports he does not use drug or cannabis regularly Last Used Substance: Unknown Last Used Substance Other:: States he may have smoked cigarette with cannabis Currently Displaying Signs/Symptoms of Drug Intoxication Withdrawal: No Any prior treatment program specific to substance use: Yes (10 years ago for alcohol) Have you been hit, kicked, punched, or otherwise hurt by someone within the past year? If so, by whom?: No Do you feel safe in your current relationship?: No Current Relationship Is there a partner from a previous relationship who is making you feel unsafe now?: No Are you made to feel afraid or neglected: No Spiritual Healthcare Practices: No Holiness Healthcare Practices: No Cultural Healthcare Practices: No Advance Directives: No Do you have thoughts of harming others: None Do you have a plan to hurt others: No Plan Recently lost weight without trying: No service: No Sexual orientation: Straight/Heterosexual Meds Allergies Allergy/AdvReac Type Severity Reaction Status Date / Time No Known Allergies Allergy Verified 06/17/20 20:38 [No Known Allergies*] Active Medications: Current Medications Generic Name Dose Route Start Last Admin Trade Name Freq PRN Reason Stop Dose Admin Acetaminophen 650 mg 06/19/20 15:34 Acetaminophen 325 Mg Tablet PO Q6H PRN Headache/Pain Mild Scale (1-3) Al Hydroxide/Mg Hydroxide 30 ml 06/19/20 15:34 Magnesium Hydrox/Alum Hydrox 30 Ml Oral.Susp PO Q6H PRN Heartburn/Nausea Clomipramine HCl 25 mg 06/28/20 21:00 06/30/20 20:18 Clomipramine Hcl 25 Mg Capsule PO 25 mg BEDTIME FERNANDO Administration Fluoxetine HCl 20 mg 06/26/20 09:00 06/30/20 08:09 Fluoxetine Hcl Oral Solution 20 Mg/5 Ml Solution PO 20 mg DAILY FERNANDO Administration Hydroxyzine HCl 25 mg 06/19/20 15:34 06/22/20 22:16 Hydroxyzine Hcl 25 Mg Tablet PO 25 mg BEDTIME PRN Administration Anxiety Lisinopril 5 mg 06/18/20 09:00 06/30/20 08:09 Lisinopril 5 Mg Tablet PO 5 mg DAILY FERNANDO Administration Protocol Lorazepam 1 mg 06/19/20 15:38 06/28/20 12:37 Lorazepam 1 Mg Tablet PO 1 mg Q6H PRN Administration Anxiety Magnesium Hydroxide 30 ml 06/19/20 15:34 Milk Of Magnesia 30 Ml Oral.Susp PO DAILY PRN Constipation Melatonin 9 mg 06/20/20 21:15 06/30/20 20:17 Melatonin 3 Mg Tablet PO 9 mg BEDTIME FERNANDO Administration Metoprolol Tartrate 25 mg 06/18/20 09:00 06/30/20 20:18 Metoprolol Tartrate 25 Mg Tablet PO 25 mg BID FERNANDO Administration Protocol Nicotine 21 mg 06/29/20 09:00 06/30/20 08:09 Nicotine 21 Mg Patch.Td24 TRANSDERMA 21 mg DAILY FERNANDO Administration Nicotine Polacrilex 2 mg 06/28/20 11:43 06/28/20 11:54 Nicotine Polacrilex 2 Mg Lozenge BUCCAL 2 mg Q2H PRN Administration Nicotine Cravings Olanzapine 20 mg 06/23/20 21:00 06/30/20 20:17 Olanzapine 10 Mg Tablet PO 20 mg BEDTIME FERNANDO Administration Omeprazole 20 mg 06/18/20 06:30 06/30/20 06:50 Omeprazole 20 Mg Capsule. PO 20 mg DAILY@0630 FERNANDO Administration Trazodone HCl 100 mg 06/21/20 17:46 Trazodone Hcl 100 Mg Tablet PO BEDTIME PRN Insomnia Home Medications Medication Instructions Recorded Confirmed Last Taken Type apixaban [Eliquis] 1 tab PO BID 06/18/20 06/18/20 Unknown History lisinopril 1 tab PO DAILY 06/18/20 06/18/20 Unknown History metoprolol tartrate 1 tab PO BID 06/18/20 06/18/20 Unknown History omeprazole 1 cap PO DAILY 06/18/20 06/18/20 Unknown History paroxetine HCl 1 tab PO DAILY 06/19/20 Unknown History ziprasidone HCl 1 cap PO BID 06/19/20 Unknown History Exam Exam Date and Time: July 01, 2020 0950 Height,Weight and Vital Signs: Height 5 ft 9 in Weight 130 kg Last Vital Signs Temp 97.7 F 07/01/20 07:33 Pulse 70 07/01/20 07:33 Resp 16 07/01/20 07:33 BP 128/86 07/01/20 07:33 Pulse Ox 96 07/01/20 07:33 Pertinent Lab Results Pertinent Lab Results: Laboratory Tests 06/17/20 06/17/20 06/18/20 20:45 23:46 10:52 WBC 11.9 H RBC 5.36 Hgb 16.4 Hct 49.3 MCV 92.0 MCH 30.6 MCHC 33.3 RDW 13.5 Plt Count 286 MPV 9.2 L Immature Gran % (Auto) 0.3 Neut % (Auto) 74.3 H Lymph % (Auto) 15.3 L [place] % (Auto) 8.6 Eos % (Auto) 1.2 Baso % (Auto) 0.3 Lymph # (Auto) 1.8 [place] # (Auto) 1.0 Eos # (Auto) 0.1 Baso # (Auto) 0.0 Abs Immat Gran (auto) 0.03 Absolute Neuts (auto) 8.9 H Absolute Nucleated RBC 0.000 Nucleated RBC % (auto) 0.0 D-Dimer Sodium Potassium Chloride Carbon Dioxide Anion Gap BUN Creatinine Estim Creat Clear Calc Estimated GFR Random Glucose Estimat Average Glucose Hemoglobin A1c % Calcium Troponin I High Sens Triglycerides Cholesterol LDL Cholesterol, Calc HDL Cholesterol Vitamin B12 Folate TSH Free T4 Urine Opiates Screen Not Detected Ur Barbiturates Screen Not Detected Ur Phencyclidine Scrn Not Detected Ur Amphetamines Screen Not Detected U Benzodiazepines Scrn Not Detected Urine Cocaine Screen Not Detected U Marijuana (THC) Screen POSITIVE H COVID-19 ([facility]) Negative COVID-19 Clin Com See Note 06/18/20 06/18/20 06/20/20 10:52 Unknown 08:39 WBC RBC Hgb Hct MCV MCH MCHC RDW Plt Count MPV Immature Gran % (Auto) Neut % (Auto) Lymph % (Auto) [place] % (Auto) Eos % (Auto) Baso % (Auto) Lymph # (Auto) [place] # (Auto) Eos # (Auto) Baso # (Auto) Abs Immat Gran (auto) Absolute Neuts (auto) Absolute Nucleated RBC Nucleated RBC % (auto) D-Dimer 425 Sodium 139 Potassium 4.1 Chloride 107 Carbon Dioxide 22 Anion Gap 14 BUN 10 Creatinine 0.91 Estim Creat Clear Calc 114.3 Estimated GFR > 60 Random Glucose 102 Estimat Average Glucose 105 Hemoglobin A1c % 5.3 Calcium 9.2 Troponin I High Sens Triglycerides Cholesterol LDL Cholesterol, Calc HDL Cholesterol Vitamin B12 Folate TSH Free T4 Urine Opiates Screen Ur Barbiturates Screen Ur Phencyclidine Scrn Ur Amphetamines Screen U Benzodiazepines Scrn Urine Cocaine Screen U Marijuana (THC) Screen COVID-19 ([facility]) COVID-19 Clin Com 06/20/20 06/20/20 06/29/20 08:39 08:39 11:57 WBC RBC Hgb Hct MCV MCH MCHC RDW Plt Count MPV Immature Gran % (Auto) Neut % (Auto) Lymph % (Auto) [place] % (Auto) Eos % (Auto) Baso % (Auto) Lymph # (Auto) [place] # (Auto) Eos # (Auto) Baso # (Auto) Abs Immat Gran (auto) Absolute Neuts (auto) Absolute Nucleated RBC Nucleated RBC % (auto) D-Dimer Sodium Potassium Chloride Carbon Dioxide Anion Gap BUN Creatinine Estim Creat Clear Calc Estimated GFR Random Glucose Estimat Average Glucose Hemoglobin A1c % Calcium Troponin I High Sens 4.1 Triglycerides 106 Cholesterol 213 LDL Cholesterol, Calc 150 HDL Cholesterol 42 Vitamin B12 246 Folate 9.9 TSH 0.72 Free T4 1.06 Urine Opiates Screen Ur Barbiturates Screen Ur Phencyclidine Scrn Ur Amphetamines Screen U Benzodiazepines Scrn Urine Cocaine Screen U Marijuana (THC) Screen COVID-19 ([facility]) COVID-19 Clin Com Airway Mallampati Class: III TM Dist: >3cm Heart: RRR Lungs: CTA
--- NOTE | 2020-07-01 11:02 | HO.PSYCHPN ---
Subjective Subjective Date of Service: 07/01/20 Reason For Visit: Schizophrenia Interim History: Pt seen, chart reviewed and case discussed with team vitals: grossly WNL, mildly tachycardia Pt reports his mood is better. Sales Enablement Analyst refers to depression prior to admission and pt says I don't totally remember but that's what he's been told. He denies any current or recent AH saying he did have passive SI, but it was only thoughts...never voices and that it's resolved. He also says he's single (had some delusions about being prior to admission). Pt asked about recent hx of skin picking and patient says it's much less. Pt denies any memory loss or muscle aches post ECT, but says he has a mild headache; he denies any side-effects from newly started Clomipramine or from other medications. Patient says he's not sure whether to continue ECT but will discuss it further with Dr. Deng. Medication Compliance: Yes Side effects from medications: No Mental Status Exam Mental Status Exam Patient Appearance: Appropriate Patient Orientation: Person, Place, Time and Situation Level of Consciousness: Awake and Appropriate Patient Behavior: Appropriate and Cooperative Mood Description: Calm and Appropriate Affect Description: Calm and Appropriate Ability to Follow Directions: Fair Speech Pattern: Clear and Appropriate Memory Description: Recent Impaired Hallucinations: None (denies AH saying it was only thoughts, but never voices) Delusions: Not Present (currently denies; thought he was just prior to admission) Thought Process: Intact, Goal Oriented and Linear Thought Content: positive for [place] Judgement: Fair Judgement and Insight: insight impaired Diagnostics Vital Signs (24Hr): Vital Signs - 24 hr 06/30/20 17:09 06/30/20 20:18 07/01/20 05:25 Temperature 98.1 F 98.0 F Pulse Rate 106 H 121 H 70 Respiratory Rate 18 18 Blood Pressure 119/56 L 126/75 123/69 Pulse Oximetry 94 93 07/01/20 06:38 07/01/20 07:33 07/01/20 09:54 Temperature 98 F 97.7 F 98.2 F Pulse Rate 70 70 89 Respiratory Rate 18 16 17 Blood Pressure 123/69 128/86 161/84 H Pulse Oximetry 93 96 95 07/01/20 09:59 07/01/20 10:04 07/01/20 10:09 Temperature Pulse Rate 96 88 96 Respiratory Rate 18 17 17 Blood Pressure 157/91 H 166/100 H 175/94 H Pulse Oximetry 97 96 96 07/01/20 10:24 Temperature 98.2 F Pulse Rate 94 Respiratory Rate 17 Blood Pressure 138/81 Pulse Oximetry 96 Body Mass Index 42.3 Labs Results: 06/18/20 10:52 06/18/20 10:52 Labs: Laboratory Results - last 48 hr 06/29/20 11:57 Troponin I High Sens 4.1 Date of Service: 06/29/20 Procedure(s): ECG 12 lead EKG Vent. Rate : 096 BPM Atrial Rate : 096 BPM P-R Int : 126 ms QRS Dur : 102 ms QT Int : 368 ms P-R-T Axes : 058 027 013 degrees QTc Int : 464 ms Medications Medications Current Medications Generic Name Dose Route Start Last Admin Trade Name Freq PRN Reason Stop Dose Admin Acetaminophen 650 mg 06/19/20 15:34 Acetaminophen 325 Mg Tablet PO Q6H PRN Headache/Pain Mild Scale (1-3) Acetaminophen 650 mg 07/01/20 09:52 Acetaminophen 325 Mg Tablet PO ONCE PRN Pain, Mild (Pain Scale 1-3) Al Hydroxide/Mg Hydroxide 30 ml 06/19/20 15:34 Magnesium Hydrox/Alum Hydrox 30 Ml Oral.Susp PO Q6H PRN Heartburn/Nausea Clomipramine HCl 25 mg 06/28/20 21:00 06/30/20 20:18 Clomipramine Hcl 25 Mg Capsule PO 25 mg BEDTIME FERNANDO Administration Fluoxetine HCl 20 mg 06/26/20 09:00 06/30/20 08:09 Fluoxetine Hcl Oral Solution 20 Mg/5 Ml Solution PO 20 mg DAILY FERNANDO Administration Hydroxyzine HCl 25 mg 06/19/20 15:34 06/22/20 22:16 Hydroxyzine Hcl 25 Mg Tablet PO 25 mg BEDTIME PRN Administration Anxiety Lisinopril 5 mg 06/18/20 09:00 06/30/20 08:09 Lisinopril 5 Mg Tablet PO 5 mg DAILY FERNANDO Administration Protocol Lorazepam 1 mg 06/19/20 15:38 06/28/20 12:37 Lorazepam 1 Mg Tablet PO 1 mg Q6H PRN Administration Anxiety Magnesium Hydroxide 30 ml 06/19/20 15:34 Milk Of Magnesia 30 Ml Oral.Susp PO DAILY PRN Constipation Melatonin 9 mg 06/20/20 21:15 06/30/20 20:17 Melatonin 3 Mg Tablet PO 9 mg BEDTIME FERNANDO Administration Metoprolol Tartrate 25 mg 06/18/20 09:00 06/30/20 20:18 Metoprolol Tartrate 25 Mg Tablet PO 25 mg BID FERNANDO Administration Protocol Nicotine 21 mg 06/29/20 09:00 06/30/20 08:09 Nicotine 21 Mg Patch.Td24 TRANSDERMA 21 mg DAILY FERNANDO Administration Nicotine Polacrilex 2 mg 06/28/20 11:43 06/28/20 11:54 Nicotine Polacrilex 2 Mg Lozenge BUCCAL 2 mg Q2H PRN Administration Nicotine Cravings Olanzapine 20 mg 06/23/20 21:00 06/30/20 20:17 Olanzapine 10 Mg Tablet PO 20 mg BEDTIME FERNANDO Administration Omeprazole 20 mg 06/18/20 06:30 06/30/20 06:50 Omeprazole 20 Mg Capsule. PO 20 mg DAILY@0630 FERNANDO Administration Oxycodone HCl 5 mg 07/01/20 09:52 Oxycodone Hcl Immed Release 5 Mg Tablet PO ONCE PRN Pain, Severe (Pain Scale 7-10) Trazodone HCl 100 mg 06/21/20 17:46 Trazodone Hcl 100 Mg Tablet PO BEDTIME PRN Insomnia Allergies Allergies Allergy/AdvReac Type Severity Reaction Status Date / Time No Known Allergies Allergy Verified 06/17/20 20:38 [No Known Allergies*] Assessment & Plan Assessment & Plan (1) Severe recurrent major depression w/psychotic features, mood-congruent: Status: Acute Code(s): F33.3 - Major depressive disorder, recurrent, severe with psychotic symptoms Assessment and Plan: Impression: pt 49 yo male with hx of depression who presented with severe depression with psychotic features. Pt was continued on prozac and zyprexa and started on Clomipramine and ECt. Pt reports improved mood. He has limited memory of depressive feelings or delusional thinking, but says he's feeling better. He is currently ambivalent about continuing ECT and will think about it more and talk with Dr. Deng when he returns. Given that pt is feeling better and SI, AH and delusional thinking are all resolved, will leave meds as they are. Although pt is doing better, this shift is recent and pt should remain on unit for now to demonstrate continued stability. DX, Assessment and Plan: (1) Severe recurrent major depression w/psychotic features, mood-congruent: -continue ECT (medically cleared) -medications: cont prozac: primarily for OCD, skin picking but also for depression Continue Olanzapine to 20 mg HS tolerated thus far. Continue Clomipramine 25mg for OCD/Anxiety/depression (started on admission) (2) OCD (obsessive compulsive disorder): Assessment and Plan: cont prozac skin picking continues denies command or intentionality. Continue Olanzapine to 20 mg HS tolerated thus far. Continue Clomipramine 25mg for OCD/Anxiety/depression (3) Skin-picking disorder: -continue above meds Greater than 50% of the session was spent on counseling and/or coordination of care Greater than 50% of the session was spent on counseling and/or coordination of care Reason for contiued inpatient stay Substantial Risk for: harm to self
[2020-07-01] MEDS: Nicotine 21 MG PATCH.TD24 TRANSDERMA (12:46)
[2020-07-01] MEDS: Metoprolol Tartrate 25 MG TABLET PO (12:47)
[2020-07-01] MEDS: lisinopriL 5 MG TABLET PO (12:48)
[2020-07-01] MEDS: FLUoxetine HCl Oral Solution 20 MG/5 ML SOLUTION PO (12:49)
[2020-07-01] MEDS: OLANZapine 10 MG TABLET 20 MG PO (20:13)
[2020-07-01] MEDS: Melatonin 3 MG TABLET 9 MG PO (20:14)
[2020-07-01] MEDS: clomiPRAMINE HCl 25 MG CAPSULE PO (20:14)
[2020-07-02 06:00] VITALS: BP 113/56; PULSE 61; RESP 16; TEMP 36.4; O2SAT 95
[2020-07-02] MEDS: Omeprazole 20 MG CAPSULE.DR PO (06:12)
[2020-07-02] MEDS: Nicotine 21 MG PATCH.TD24 TRANSDERMA (08:18)
[2020-07-02 08:19] VITALS: BP 139/94; PULSE 92
[2020-07-02] MEDS: lisinopriL 5 MG TABLET PO (08:19)
[2020-07-02] MEDS: Metoprolol Tartrate 25 MG TABLET PO ×2 (08:19→20:42)
[2020-07-02] MEDS: FLUoxetine HCl Oral Solution 20 MG/5 ML SOLUTION PO (08:19)
[2020-07-02 16:30] VITALS: BP 101/65; PULSE 81; TEMP 37.2
--- NOTE | 2020-07-02 20:26 | HO.PSYCHPN ---
Subjective Subjective Date of Service: 07/02/20 Reason For Visit: Schizophrenia Subjective Notes: Conditional Voluntary Interim History: Patient depressed anxious withdrawn isolative. Tolerated 1st ECT Guarded encourage group compliance Medication Compliance: Yes Side effects from medications: Yes Attending Groups: No Mental Status Exam Mental Status Exam Patient Appearance: Appropriate Patient Orientation: Person, Place, Time and Situation Level of Consciousness: Awake and Appropriate Patient Behavior: Appropriate and Cooperative Mood Description: Calm, Appropriate, Anxious, Blunted and Apprehensive Affect Description: Calm, Appropriate, Anxious, Blunted and Apprehensive Ability to Follow Directions: Fair Speech Pattern: Clear and Appropriate Memory Description: Recent Impaired Hallucinations: None (denies AH saying it was only thoughts, but never voices) Delusions: Not Present (currently denies; thought he was just prior to admission) Thought Process: Intact, Goal Oriented and Linear Thought Content: positive for [place] Judgement: Fair Judgement and Insight: insight impaired Diagnostics Vital Signs (24Hr): Vital Signs - 24 hr 07/02/20 06:00 07/02/20 08:19 07/02/20 16:30 Temperature 97.5 F 98.9 F Pulse Rate 61 92 81 Respiratory Rate 16 Blood Pressure 113/56 L 139/94 H 101/65 Pulse Oximetry 95 Body Mass Index 42.3 Labs Results: 06/18/20 10:52 06/18/20 10:52 Medications Medications Current Medications Generic Name Dose Route Start Last Admin Trade Name Freq PRN Reason Stop Dose Admin Acetaminophen 650 mg 06/19/20 15:34 Acetaminophen 325 Mg Tablet PO Q6H PRN Headache/Pain Mild Scale (1-3) Acetaminophen 650 mg 07/01/20 09:52 Acetaminophen 325 Mg Tablet PO ONCE PRN Pain, Mild (Pain Scale 1-3) Al Hydroxide/Mg Hydroxide 30 ml 06/19/20 15:34 Magnesium Hydrox/Alum Hydrox 30 Ml Oral.Susp PO Q6H PRN Heartburn/Nausea Clomipramine HCl 25 mg 06/28/20 21:00 07/01/20 20:14 Clomipramine Hcl 25 Mg Capsule PO 25 mg BEDTIME FERNANDO Administration Fluoxetine HCl 20 mg 06/26/20 09:00 07/02/20 08:19 Fluoxetine Hcl Oral Solution 20 Mg/5 Ml Solution PO 20 mg DAILY FERNANDO Administration Hydroxyzine HCl 25 mg 06/19/20 15:34 06/22/20 22:16 Hydroxyzine Hcl 25 Mg Tablet PO 25 mg BEDTIME PRN Administration Anxiety Lisinopril 5 mg 06/18/20 09:00 07/02/20 08:19 Lisinopril 5 Mg Tablet PO 5 mg DAILY FERNANDO Administration Protocol Lorazepam 1 mg 06/19/20 15:38 06/28/20 12:37 Lorazepam 1 Mg Tablet PO 1 mg Q6H PRN Administration Anxiety Magnesium Hydroxide 30 ml 06/19/20 15:34 Milk Of Magnesia 30 Ml Oral.Susp PO DAILY PRN Constipation Melatonin 9 mg 06/20/20 21:15 07/01/20 20:14 Melatonin 3 Mg Tablet PO 9 mg BEDTIME FERNANDO Administration Metoprolol Tartrate 25 mg 06/18/20 09:00 07/02/20 08:19 Metoprolol Tartrate 25 Mg Tablet PO 25 mg BID FERNANDO Administration Protocol Nicotine 21 mg 06/29/20 09:00 07/02/20 08:18 Nicotine 21 Mg Patch.Td24 TRANSDERMA 21 mg DAILY FERNANDO Administration Nicotine Polacrilex 2 mg 06/28/20 11:43 06/28/20 11:54 Nicotine Polacrilex 2 Mg Lozenge BUCCAL 2 mg Q2H PRN Administration Nicotine Cravings Olanzapine 20 mg 06/23/20 21:00 07/01/20 20:13 Olanzapine 10 Mg Tablet PO 20 mg BEDTIME FERNANDO Administration Omeprazole 20 mg 06/18/20 06:30 07/02/20 06:12 Omeprazole 20 Mg Capsule. PO 20 mg DAILY@0630 FERNANDO Administration Oxycodone HCl 5 mg 07/01/20 09:52 Oxycodone Hcl Immed Release 5 Mg Tablet PO ONCE PRN Pain, Severe (Pain Scale 7-10) Trazodone HCl 100 mg 06/21/20 17:46 Trazodone Hcl 100 Mg Tablet PO BEDTIME PRN Insomnia Allergies Allergies Allergy/AdvReac Type Severity Reaction Status Date / Time No Known Allergies Allergy Verified 06/17/20 20:38 [No Known Allergies*] Assessment & Plan Assessment & Plan (1) Severe recurrent major depression w/psychotic features, mood-congruent: Status: Acute Code(s): F33.3 - Major depressive disorder, recurrent, severe with psychotic symptoms Assessment and Plan: Impression: pt 49 yo male with hx of depression who presented with severe depression with psychotic features. Pt was continued on prozac and zyprexa and started on Clomipramine and ECt. Pt reports improved mood. He has limited memory of depressive feelings or delusional thinking, but says he's feeling better. Patient guarded regarding delusional thinking DX, Assessment and Plan: (1) Severe recurrent major depression w/psychotic features, mood-congruent: -continue ECT (medically cleared) -medications: cont prozac: primarily for OCD, skin picking but also for depression Continue Olanzapine to 20 mg HS tolerated thus far. Continue Clomipramine 25mg for OCD/Anxiety/depression (started on admission) (2) OCD (obsessive compulsive disorder): Assessment and Plan: cont prozac skin picking continues denies command or intentionality. Continue Olanzapine to 20 mg HS tolerated thus far. Continue Clomipramine 25mg for OCD/Anxiety/depression (3) Skin-picking disorder: -continue above meds Greater than 50% of the session was spent on counseling and/or coordination of care Greater than 50% of the session was spent on counseling and/or coordination of care Reason for contiued inpatient stay Substantial Risk for: inability to function and rapid decompensation
[2020-07-02 20:42] VITALS: BP 126/81; PULSE 100
[2020-07-02] MEDS: clomiPRAMINE HCl 25 MG CAPSULE PO (20:42)
[2020-07-02] MEDS: Melatonin 3 MG TABLET 9 MG PO (20:42)
[2020-07-02] MEDS: OLANZapine 10 MG TABLET 20 MG PO (20:42)
[2020-07-03] VITALS (12 sets, daily range): BP systolic 118–165; BP diastolic 54–105; PULSE 56–107; RESP 16–20; TEMP 36.1–36.8; O2SAT 93–99
--- NOTE | 2020-07-03 07:50 | MHC.SHP ---
Pre-Procedural Eval Section A The patient is an INPATIENT: Yes Changes since office visit: Yes Changes in Medication and Yes Patient answered all questions; No Cold of Flu in the past 2 weeks and No New Medical Problems The History & Physical has been completed within 30 days and I have reviewed it.: Yes Section B Chief Complaint: Schizophrenia Allergies: Allergies Allergy/AdvReac Type Severity Reaction Status Date / Time No Known Allergies Allergy Verified 06/17/20 20:38 [No Known Allergies*] Plan I have reviewed the history and physical and performed a pertinent physical examination on my patient. No changes have occurred unless specified.
--- NOTE | 2020-07-03 08:27 | HO.ECTPROC ---
ECT Procedure Note Diagnosis/Treatment Date of Service: 07/03/20 Diagnosis: Major Depressive Disorder Previous ECT Date: 07/03/20 Current Treatment Number: 2 Treatment: Series Interval Clinical Notes: PT DEPRESSED WITHDRAWN poor adls not getting out of room much or going to grp flat isolated ECT Settings Device: THYMATRON DGx Electrode Placement: Bifrontal Program/Pulse Width: 0.50 Energy Percent: 100 Seizure Duration By EEG (in seconds): 50 Medications Administration General Anesthetic: Etomidate (18) Muscle Relaxant: Succinylcholine (100) Ancillary Medications Analgesics: Torodol - Pre ECT Miscillaneous Medications: Propofol (30) and Midazolam (2 mg) Airway Management Airway Management: Bag Mask Ventilation Treatment Recommendations No Changes Recommended: No change Notes: did need oral pharyngeal post Pt Tolerated Procedure w/o Issue: Yes
--- NOTE | 2020-07-03 09:19 | P.CONAN_ITS ---
[facility] Active Problems Active Problems: All Active Problems (Updated 06/29/20 @ 19:05 by Zaki Juan MD) Preoperative clearance (Acute) Skin-picking disorder (Acute) OCD (obsessive compulsive disorder) (Acute) Severe recurrent major depression w/psychotic features, mood-congruent (Acute) HTN (hypertension) (Acute) JAMES (obstructive sleep apnea) (Acute) GERD (gastroesophageal reflux disease) (Acute) Psychosis (Acute) Anxiety (Acute) Past Medical History Medical History Anxiety Depression GERD (gastroesophageal reflux disease) Hernia HTN (hypertension) OCD (obsessive compulsive disorder) JAMES (obstructive sleep apnea) Pulmonary emboli Severe recurrent major depression w/psychotic features, mood-congruent Skin-picking disorder TBI (traumatic brain injury) Social History Social History Household Members: Family Housing: House Alcohol intake: former Smoking Status: Current every day smoker Tobacco Type: Cigarette Packs Per Day: 1 Cigarettes Per Day: 20.0 Years Smoked: 18 Second Hand Smoke Exposure: No Substance Use Type: Unknown service: No Sexual orientation: Straight/Heterosexual Meds Allergies Allergy/AdvReac Type Severity Reaction Status Date / Time No Known Allergies Allergy Verified 06/17/20 20:38 [No Known Allergies*] Active Medications: Current Medications Generic Name Dose Route Start Last Admin Trade Name Freq PRN Reason Stop Dose Admin Acetaminophen 650 mg 06/19/20 15:34 Acetaminophen 325 Mg Tablet PO Q6H PRN Headache/Pain Mild Scale (1-3) Acetaminophen 650 mg 07/01/20 09:52 Acetaminophen 325 Mg Tablet PO ONCE PRN Pain, Mild (Pain Scale 1-3) Al Hydroxide/Mg Hydroxide 30 ml 06/19/20 15:34 Magnesium Hydrox/Alum Hydrox 30 Ml Oral.Susp PO Q6H PRN Heartburn/Nausea Clomipramine HCl 25 mg 06/28/20 21:00 07/02/20 20:42 Clomipramine Hcl 25 Mg Capsule PO 25 mg BEDTIME FERNANDO Administration Fluoxetine HCl 20 mg 06/26/20 09:00 07/02/20 08:19 Fluoxetine Hcl Oral Solution 20 Mg/5 Ml Solution PO 20 mg DAILY FERNANDO Administration Hydroxyzine HCl 25 mg 06/19/20 15:34 06/22/20 22:16 Hydroxyzine Hcl 25 Mg Tablet PO 25 mg BEDTIME PRN Administration Anxiety Lisinopril 5 mg 06/18/20 09:00 07/02/20 08:19 Lisinopril 5 Mg Tablet PO 5 mg DAILY FERNANDO Administration Protocol Lorazepam 1 mg 06/19/20 15:38 06/28/20 12:37 Lorazepam 1 Mg Tablet PO 1 mg Q6H PRN Administration Anxiety Magnesium Hydroxide 30 ml 06/19/20 15:34 Milk Of Magnesia 30 Ml Oral.Susp PO DAILY PRN Constipation Melatonin 9 mg 06/20/20 21:15 07/02/20 20:42 Melatonin 3 Mg Tablet PO 9 mg BEDTIME FERNANDO Administration Metoprolol Tartrate 25 mg 06/18/20 09:00 07/02/20 20:42 Metoprolol Tartrate 25 Mg Tablet PO 25 mg BID FERNANDO Administration Protocol Nicotine 21 mg 06/29/20 09:00 07/02/20 08:18 Nicotine 21 Mg Patch.Td24 TRANSDERMA 21 mg DAILY FERNANDO Administration Nicotine Polacrilex 2 mg 06/28/20 11:43 06/28/20 11:54 Nicotine Polacrilex 2 Mg Lozenge BUCCAL 2 mg Q2H PRN Administration Nicotine Cravings Olanzapine 20 mg 06/23/20 21:00 07/02/20 20:42 Olanzapine 10 Mg Tablet PO 20 mg BEDTIME FERNANDO Administration Omeprazole 20 mg 06/18/20 06:30 07/02/20 06:12 Omeprazole 20 Mg Capsule. PO 20 mg DAILY@0630 FERNANDO Administration Oxycodone HCl 5 mg 07/01/20 09:52 Oxycodone Hcl Immed Release 5 Mg Tablet PO ONCE PRN Pain, Severe (Pain Scale 7-10) Trazodone HCl 100 mg 06/21/20 17:46 Trazodone Hcl 100 Mg Tablet PO BEDTIME PRN Insomnia Home Medications Medication Instructions Recorded Confirmed Last Taken Type apixaban [Eliquis] 1 tab PO BID 06/18/20 06/18/20 Unknown History lisinopril 1 tab PO DAILY 06/18/20 06/18/20 Unknown History metoprolol tartrate 1 tab PO BID 06/18/20 06/18/20 Unknown History omeprazole 1 cap PO DAILY 06/18/20 06/18/20 Unknown History paroxetine HCl 1 tab PO DAILY 06/19/20 Unknown History ziprasidone HCl 1 cap PO BID 06/19/20 Unknown History Exam Exam Date and Time: July 03, [id number] Height,Weight and Vital Signs: Height 5 ft 9 in Weight 130 kg Last Vital Signs Temp 98 F 07/03/20 07:41 Pulse 56 07/03/20 07:41 Resp 16 07/03/20 07:41 BP 122/82 07/03/20 07:41 Pulse Ox 96 07/03/20 07:41 Pertinent Lab Results Pertinent Lab Results: Laboratory Tests 06/17/20 06/17/20 06/18/20 20:45 23:46 10:52 WBC 11.9 H RBC 5.36 Hgb 16.4 Hct 49.3 MCV 92.0 MCH 30.6 MCHC 33.3 RDW 13.5 Plt Count 286 MPV 9.2 L Immature Gran % (Auto) 0.3 Neut % (Auto) 74.3 H Lymph % (Auto) 15.3 L [place] % (Auto) 8.6 Eos % (Auto) 1.2 Baso % (Auto) 0.3 Lymph # (Auto) 1.8 [place] # (Auto) 1.0 Eos # (Auto) 0.1 Baso # (Auto) 0.0 Abs Immat Gran (auto) 0.03 Absolute Neuts (auto) 8.9 H Absolute Nucleated RBC 0.000 Nucleated RBC % (auto) 0.0 D-Dimer Sodium Potassium Chloride Carbon Dioxide Anion Gap BUN Creatinine Estim Creat Clear Calc Estimated GFR Random Glucose Estimat Average Glucose Hemoglobin A1c % Calcium Troponin I High Sens Triglycerides Cholesterol LDL Cholesterol, Calc HDL Cholesterol Vitamin B12 Folate TSH Free T4 Urine Opiates Screen Not Detected Ur Barbiturates Screen Not Detected Ur Phencyclidine Scrn Not Detected Ur Amphetamines Screen Not Detected U Benzodiazepines Scrn Not Detected Urine Cocaine Screen Not Detected U Marijuana (THC) Screen POSITIVE H COVID-19 ([facility]) Negative COVID-19 Clin Com See Note 06/18/20 06/18/20 06/20/20 10:52 Unknown 08:39 WBC RBC Hgb Hct MCV MCH MCHC RDW Plt Count MPV Immature Gran % (Auto) Neut % (Auto) Lymph % (Auto) [place] % (Auto) Eos % (Auto) Baso % (Auto) Lymph # (Auto) [place] # (Auto) Eos # (Auto) Baso # (Auto) Abs Immat Gran (auto) Absolute Neuts (auto) Absolute Nucleated RBC Nucleated RBC % (auto) D-Dimer 425 Sodium 139 Potassium 4.1 Chloride 107 Carbon Dioxide 22 Anion Gap 14 BUN 10 Creatinine 0.91 Estim Creat Clear Calc 114.3 Estimated GFR > 60 Random Glucose 102 Estimat Average Glucose 105 Hemoglobin A1c % 5.3 Calcium 9.2 Troponin I High Sens Triglycerides Cholesterol LDL Cholesterol, Calc HDL Cholesterol Vitamin B12 Folate TSH Free T4 Urine Opiates Screen Ur Barbiturates Screen Ur Phencyclidine Scrn Ur Amphetamines Screen U Benzodiazepines Scrn Urine Cocaine Screen U Marijuana (THC) Screen COVID-19 ([facility]) COVID-19 Clin Com 06/20/20 06/20/20 06/29/20 08:39 08:39 11:57 WBC RBC Hgb Hct MCV MCH MCHC RDW Plt Count MPV Immature Gran % (Auto) Neut % (Auto) Lymph % (Auto) [place] % (Auto) Eos % (Auto) Baso % (Auto) Lymph # (Auto) [place] # (Auto) Eos # (Auto) Baso # (Auto) Abs Immat Gran (auto) Absolute Neuts (auto) Absolute Nucleated RBC Nucleated RBC % (auto) D-Dimer Sodium Potassium Chloride Carbon Dioxide Anion Gap BUN Creatinine Estim Creat Clear Calc Estimated GFR Random Glucose Estimat Average Glucose Hemoglobin A1c % Calcium Troponin I High Sens 4.1 Triglycerides 106 Cholesterol 213 LDL Cholesterol, Calc 150 HDL Cholesterol 42 Vitamin B12 246 Folate 9.9 TSH 0.72 Free T4 1.06 Urine Opiates Screen Ur Barbiturates Screen Ur Phencyclidine Scrn Ur Amphetamines Screen U Benzodiazepines Scrn Urine Cocaine Screen U Marijuana (THC) Screen COVID-19 ([facility]) COVID-19 Clin Com Airway Mallampati Class: III TM Dist: >3cm Neck ROM: Full Heart: RRR Lungs: CTA
[2020-07-03] MEDS: lisinopriL 5 MG TABLET PO (11:10)
[2020-07-03] MEDS: Metoprolol Tartrate 25 MG TABLET PO (11:10)
[2020-07-03] MEDS: FLUoxetine HCl Oral Solution 20 MG/5 ML SOLUTION PO (11:11)
[2020-07-03] MEDS: Nicotine 21 MG PATCH.TD24 TRANSDERMA (11:11)
--- NOTE | 2020-07-03 20:34 | HO.PSYCHPN ---
Subjective Subjective Date of Service: 07/03/20 Reason For Visit: Schizophrenia Subjective Notes: Conditional Voluntary Interim History: Patient depressed anxious irritable and withdrawn Medication Compliance: Yes Mental Status Exam Mental Status Exam Patient Appearance: Appropriate Patient Orientation: Person, Place, Time and Situation Level of Consciousness: Awake and Appropriate Patient Behavior: Appropriate and Cooperative Mood Description: Calm, Appropriate, Anxious, Blunted and Apprehensive Affect Description: Calm, Appropriate, Anxious, Blunted and Apprehensive Ability to Follow Directions: Fair Speech Pattern: Clear and Appropriate Memory Description: Recent Impaired Hallucinations: None (denies AH saying it was only thoughts, but never voices) Delusions: Not Present (currently denies; thought he was just prior to admission) Thought Process: Intact, Goal Oriented and Linear Thought Content: positive for [place] Judgement: Fair Judgement and Insight: insight impaired Diagnostics Vital Signs (24Hr): Vital Signs - 24 hr 07/02/20 20:42 07/03/20 05:45 07/03/20 05:57 Temperature 97.9 F 97.9 F Pulse Rate 100 79 79 Respiratory Rate 18 18 Blood Pressure 126/81 155/74 H Pulse Oximetry 97 97 07/03/20 07:41 07/03/20 09:52 07/03/20 09:57 Temperature 98 F 97 F Pulse Rate 56 99 93 Respiratory Rate 16 20 20 Blood Pressure 122/82 163/105 H 165/98 H Pulse Oximetry 96 95 93 07/03/20 10:02 07/03/20 10:11 07/03/20 10:24 Temperature 97 F 97 F Pulse Rate 93 97 93 Respiratory Rate 20 20 16 Blood Pressure 157/95 H 141/91 H 138/91 H Pulse Oximetry 94 94 94 07/03/20 11:10 07/03/20 11:46 07/03/20 18:00 Temperature 98.3 F 97.8 F Pulse Rate 80 80 88 Respiratory Rate 16 18 Blood Pressure 118/71 118/71 123/54 L Pulse Oximetry 99 95 Body Mass Index 42.3 Labs Results: 06/18/20 10:52 06/18/20 10:52 Medications Medications Current Medications Generic Name Dose Route Start Last Admin Trade Name Freq PRN Reason Stop Dose Admin Acetaminophen 650 mg 06/19/20 15:34 Acetaminophen 325 Mg Tablet PO Q6H PRN Headache/Pain Mild Scale (1-3) Al Hydroxide/Mg Hydroxide 30 ml 06/19/20 15:34 Magnesium Hydrox/Alum Hydrox 30 Ml Oral.Susp PO Q6H PRN Heartburn/Nausea Clomipramine HCl 25 mg 06/28/20 21:00 07/02/20 20:42 Clomipramine Hcl 25 Mg Capsule PO 25 mg BEDTIME FERNANDO Administration Fluoxetine HCl 20 mg 06/26/20 09:00 07/03/20 11:11 Fluoxetine Hcl Oral Solution 20 Mg/5 Ml Solution PO 20 mg DAILY FERNANDO Administration Hydroxyzine HCl 25 mg 06/19/20 15:34 06/22/20 22:16 Hydroxyzine Hcl 25 Mg Tablet PO 25 mg BEDTIME PRN Administration Anxiety Lisinopril 5 mg 06/18/20 09:00 07/03/20 11:10 Lisinopril 5 Mg Tablet PO 5 mg DAILY FERNANDO Administration Protocol Lorazepam 1 mg 06/19/20 15:38 06/28/20 12:37 Lorazepam 1 Mg Tablet PO 1 mg Q6H PRN Administration Anxiety Magnesium Hydroxide 30 ml 06/19/20 15:34 Milk Of Magnesia 30 Ml Oral.Susp PO DAILY PRN Constipation Melatonin 9 mg 06/20/20 21:15 07/02/20 20:42 Melatonin 3 Mg Tablet PO 9 mg BEDTIME FERNANDO Administration Metoprolol Tartrate 25 mg 06/18/20 09:00 07/03/20 11:10 Metoprolol Tartrate 25 Mg Tablet PO 25 mg BID FERNANDO Administration Protocol Nicotine 21 mg 06/29/20 09:00 07/03/20 11:11 Nicotine 21 Mg Patch.Td24 TRANSDERMA 21 mg DAILY FERNANDO Administration Nicotine Polacrilex 2 mg 06/28/20 11:43 06/28/20 11:54 Nicotine Polacrilex 2 Mg Lozenge BUCCAL 2 mg Q2H PRN Administration Nicotine Cravings Olanzapine 20 mg 06/23/20 21:00 07/02/20 20:42 Olanzapine 10 Mg Tablet PO 20 mg BEDTIME FERNANDO Administration Omeprazole 20 mg 06/18/20 06:30 07/03/20 11:20 Omeprazole 20 Mg Capsule.Dr PO Not Given DAILY@0630 FERNANDO Trazodone HCl 100 mg 06/21/20 17:46 Trazodone Hcl 100 Mg Tablet PO BEDTIME PRN Insomnia Allergies Allergies Allergy/AdvReac Type Severity Reaction Status Date / Time No Known Allergies Allergy Verified 06/17/20 20:38 [No Known Allergies*] Assessment & Plan Assessment & Plan (1) Severe recurrent major depression w/psychotic features, mood-congruent: Status: Acute Code(s): F33.3 - Major depressive disorder, recurrent, severe with psychotic symptoms Assessment and Plan: DX, Assessment and Plan: (1) Severe recurrent major depression w/psychotic features, mood-congruent: -continue ECT -medications: cont prozac: primarily for OCD, skin picking but also for depression Continue Olanzapine to 20 mg HS tolerated thus far.ck ekg Continue Clomipramine increase 50 mg (2) OCD (obsessive compulsive disorder): Assessment and Plan: cont prozac skin picking continues denies command or intentionality. Continue Olanzapine to 20 mg HS tolerated thus far. Greater than 50% of the session was spent on counseling and/or coordination of care Greater than 50% of the session was spent on counseling and/or coordination of care Reason for contiued inpatient stay Substantial Risk for: harm to self, rapid decompensation and med/psych decompensation
[2020-07-03] MEDS: OLANZapine 10 MG TABLET 20 MG PO (21:03)
[2020-07-03] MEDS: clomiPRAMINE HCl 25 MG CAPSULE 50 MG PO (21:03)
[2020-07-03] MEDS: Melatonin 3 MG TABLET 9 MG PO (21:03)
[2020-07-04 06:00] VITALS: BP 155/86; PULSE 71; RESP 18; TEMP 36.5; O2SAT 96
[2020-07-04] MEDS: Omeprazole 20 MG CAPSULE.DR PO (06:49)
[2020-07-04 07:00] VITALS: BMI 32.5
[2020-07-04 08:41] VITALS: BP 159/101; PULSE 98
[2020-07-04] MEDS: lisinopriL 5 MG TABLET PO (08:41)
[2020-07-04] MEDS: FLUoxetine HCl Oral Solution 20 MG/5 ML SOLUTION 40 MG PO (08:41)
[2020-07-04 08:42] VITALS: BP 159/101; PULSE 98
[2020-07-04] MEDS: Metoprolol Tartrate 25 MG TABLET PO ×2 (08:42→20:56)
[2020-07-04] MEDS: Nicotine 21 MG PATCH.TD24 TRANSDERMA (08:44)
[2020-07-04] MEDS: LORazepam 1 MG TABLET PO (08:50)
--- NOTE | 2020-07-04 10:40 | P.PNPSI_ITS ---
Subjective Subjective Date of Service: 07/04/20 Reason For Visit: Schizophrenia Subjective Notes: Conditional Voluntary Interim History: Patient depressed withdrawn he did change his clothes he is often isolated withdrawn minimal engagement Mental Status Exam Mental Status Exam Patient Appearance: Appropriate Patient Orientation: Person, Place, Time and Situation Level of Consciousness: Awake and Appropriate Patient Behavior: Appropriate and Guarded Mood Description: Calm, Appropriate, Anxious, Blunted and Apprehensive Affect Description: Calm, Appropriate, Anxious, Blunted, Flat and Apprehensive Ability to Follow Directions: Fair Speech Pattern: Clear and Appropriate Memory Description: Recent Impaired Hallucinations: None (denies AH saying it was only thoughts, but never voices) Delusions: Not Present (currently denies; thought he was just prior to admission) Thought Process: Intact, Goal Oriented and Linear Thought Content: positive for [employer] Judgement: Fair Judgement and Insight: insight impaired Diagnostics Vital Signs (24Hr): Vital Signs - 24 hr 07/03/20 11:10 07/03/20 11:46 07/03/20 18:00 Temperature 98.3 F 97.8 F Pulse Rate 80 80 88 Respiratory Rate 16 18 Blood Pressure 118/71 118/71 123/54 L Pulse Oximetry 99 95 07/03/20 21:06 07/04/20 06:00 07/04/20 08:41 Temperature 97.7 F Pulse Rate 107 H 71 98 Respiratory Rate 18 Blood Pressure 118/59 L 155/86 H 159/101 H Pulse Oximetry 96 07/04/20 08:42 Temperature Pulse Rate 98 Respiratory Rate Blood Pressure 159/101 H Pulse Oximetry Body Mass Index 42.3 Labs Results: 06/18/20 10:52 06/18/20 10:52 Medications Medications Current Medications Generic Name Dose Route Start Last Admin Trade Name Freq PRN Reason Stop Dose Admin Acetaminophen 650 mg 06/19/20 15:34 Acetaminophen 325 Mg Tablet PO Q6H PRN Headache/Pain Mild Scale (1-3) Al Hydroxide/Mg Hydroxide 30 ml 06/19/20 15:34 Magnesium Hydrox/Alum Hydrox 30 Ml Oral.Susp PO Q6H PRN Heartburn/Nausea Clomipramine HCl 50 mg 07/03/20 21:00 07/03/20 21:03 Clomipramine Hcl 25 Mg Capsule PO 50 mg BEDTIME FERNANDO Administration Fluoxetine HCl 40 mg 07/04/20 09:00 07/04/20 08:41 Fluoxetine Hcl Oral Solution 20 Mg/5 Ml Solution PO 40 mg DAILY FERNANDO Administration Hydroxyzine HCl 25 mg 06/19/20 15:34 06/22/20 22:16 Hydroxyzine Hcl 25 Mg Tablet PO 25 mg BEDTIME PRN Administration Anxiety Lisinopril 5 mg 06/18/20 09:00 07/04/20 08:41 Lisinopril 5 Mg Tablet PO 5 mg DAILY FERNANDO Administration Protocol Lorazepam 1 mg 06/19/20 15:38 07/04/20 08:50 Lorazepam 1 Mg Tablet PO 1 mg Q6H PRN Administration Anxiety Magnesium Hydroxide 30 ml 06/19/20 15:34 Milk Of Magnesia 30 Ml Oral.Susp PO DAILY PRN Constipation Melatonin 9 mg 06/20/20 21:15 07/03/20 21:03 Melatonin 3 Mg Tablet PO 9 mg BEDTIME FERNANDO Administration Metoprolol Tartrate 25 mg 06/18/20 09:00 07/04/20 08:42 Metoprolol Tartrate 25 Mg Tablet PO 25 mg BID FERNANDO Administration Protocol Nicotine 21 mg 06/29/20 09:00 07/04/20 08:44 Nicotine 21 Mg Patch.Td24 TRANSDERMA 21 mg DAILY FERNANDO Administration Nicotine Polacrilex 2 mg 06/28/20 11:43 06/28/20 11:54 Nicotine Polacrilex 2 Mg Lozenge BUCCAL 2 mg Q2H PRN Administration Nicotine Cravings Olanzapine 20 mg 06/23/20 21:00 07/03/20 21:03 Olanzapine 10 Mg Tablet PO 20 mg BEDTIME FERNANDO Administration Omeprazole 20 mg 06/18/20 06:30 07/04/20 06:49 Omeprazole 20 Mg Capsule.Dr PO 20 mg DAILY@0630 FERNANDO Administration Trazodone HCl 100 mg 06/21/20 17:46 Trazodone Hcl 100 Mg Tablet PO BEDTIME PRN Insomnia Allergies Allergies Allergy/AdvReac Type Severity Reaction Status Date / Time No Known Allergies Allergy Verified 06/17/20 20:38 [No Known Allergies*] Assessment & Plan Assessment & Plan (1) Severe recurrent major depression w/psychotic features, mood-congruent: Status: Acute Code(s): F33.3 - Major depressive disorder, recurrent, severe with psychotic symptoms Assessment and Plan: DX, Assessment and Plan: (1) Severe recurrent major depression w/psychotic features, mood-congruent: -continue ECT -medications: Continue Prozac 40 mg clomipramine 50 mg consider change olanzapine to Abilify Limited engagement denies active self-harm but very difficult to read the patient's mental state he is not very forthcoming Continue her ECT unclear if benefit to this point (2) OCD (obsessive compulsive disorder): Assessment and Plan: cont prozac skin picking continues denies command or intentionality. Greater than 50% of the session was spent on counseling and/or coordination of care Greater than 50% of the session was spent on counseling and/or coordination of care Reason for contiued inpatient stay Substantial Risk for: harm to self, inability to function and rapid decompensation
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
[2020-07-04 17:42] VITALS: BP 104/70; PULSE 120; RESP 18; TEMP 36.5; O2SAT 95
[2020-07-04 20:56] VITALS: BP 122/76; PULSE 120
[2020-07-04] MEDS: Melatonin 3 MG TABLET 9 MG PO (20:56)
[2020-07-04] MEDS: OLANZapine 10 MG TABLET 20 MG PO (20:56)
[2020-07-04] MEDS: clomiPRAMINE HCl 25 MG CAPSULE 50 MG PO (20:56)
[2020-07-05] VITALS (11 sets, daily range): BP systolic 119–181; BP diastolic 63–110; PULSE 63–98; RESP 16–18; TEMP 35.9–36.8; O2SAT 94–96
--- NOTE | 2020-07-05 08:19 | P.CONAN_ITS ---
[facility] Active Problems Active Problems: All Active Problems (Updated 06/29/20 @ 19:05 by Zaki Juan MD) Preoperative clearance (Acute) Skin-picking disorder (Acute) OCD (obsessive compulsive disorder) (Acute) Severe recurrent major depression w/psychotic features, mood-congruent (Acute) HTN (hypertension) (Acute) JAMES (obstructive sleep apnea) (Acute) GERD (gastroesophageal reflux disease) (Acute) Psychosis (Acute) Anxiety (Acute) Past Medical History Medical History Anxiety Depression GERD (gastroesophageal reflux disease) Hernia HTN (hypertension) OCD (obsessive compulsive disorder) JAMES (obstructive sleep apnea) Pulmonary emboli Severe recurrent major depression w/psychotic features, mood-congruent Skin-picking disorder TBI (traumatic brain injury) Social History Social History Household Members: Family Housing: House Alcohol intake: former Smoking Status: Current every day smoker Tobacco Type: Cigarette Packs Per Day: 1 Cigarettes Per Day: 20.0 Years Smoked: 18 Second Hand Smoke Exposure: No Substance Use Type: Unknown service: No Sexual orientation: Straight/Heterosexual Meds Allergies Allergy/AdvReac Type Severity Reaction Status Date / Time No Known Allergies Allergy Verified 06/17/20 20:38 [No Known Allergies*] Active Medications: Current Medications Generic Name Dose Route Start Last Admin Trade Name Freq PRN Reason Stop Dose Admin Acetaminophen 650 mg 06/19/20 15:34 Acetaminophen 325 Mg Tablet PO Q6H PRN Headache/Pain Mild Scale (1-3) Al Hydroxide/Mg Hydroxide 30 ml 06/19/20 15:34 Magnesium Hydrox/Alum Hydrox 30 Ml Oral.Susp PO Q6H PRN Heartburn/Nausea Clomipramine HCl 50 mg 07/03/20 21:00 07/04/20 20:56 Clomipramine Hcl 25 Mg Capsule PO 50 mg BEDTIME FERNANDO Administration Fluoxetine HCl 40 mg 07/04/20 09:00 07/04/20 08:41 Fluoxetine Hcl Oral Solution 20 Mg/5 Ml Solution PO 40 mg DAILY FERNANDO Administration Hydroxyzine HCl 25 mg 06/19/20 15:34 06/22/20 22:16 Hydroxyzine Hcl 25 Mg Tablet PO 25 mg BEDTIME PRN Administration Anxiety Lisinopril 5 mg 06/18/20 09:00 07/04/20 08:41 Lisinopril 5 Mg Tablet PO 5 mg DAILY FERNANDO Administration Protocol Lorazepam 1 mg 06/19/20 15:38 07/04/20 08:50 Lorazepam 1 Mg Tablet PO 1 mg Q6H PRN Administration Anxiety Magnesium Hydroxide 30 ml 06/19/20 15:34 Milk Of Magnesia 30 Ml Oral.Susp PO DAILY PRN Constipation Melatonin 9 mg 06/20/20 21:15 07/04/20 20:56 Melatonin 3 Mg Tablet PO 9 mg BEDTIME FERNANDO Administration Metoprolol Tartrate 25 mg 06/18/20 09:00 07/04/20 20:56 Metoprolol Tartrate 25 Mg Tablet PO 25 mg BID FERNANDO Administration Protocol Nicotine 21 mg 06/29/20 09:00 07/04/20 08:44 Nicotine 21 Mg Patch.Td24 TRANSDERMA 21 mg DAILY FERNANDO Administration Nicotine Polacrilex 2 mg 06/28/20 11:43 06/28/20 11:54 Nicotine Polacrilex 2 Mg Lozenge BUCCAL 2 mg Q2H PRN Administration Nicotine Cravings Olanzapine 20 mg 06/23/20 21:00 07/04/20 20:56 Olanzapine 10 Mg Tablet PO 20 mg BEDTIME FERNANDO Administration Omeprazole 20 mg 06/18/20 06:30 07/04/20 06:49 Omeprazole 20 Mg Capsule. PO 20 mg DAILY@0630 FERNANDO Administration Trazodone HCl 100 mg 06/21/20 17:46 Trazodone Hcl 100 Mg Tablet PO BEDTIME PRN Insomnia Home Medications Medication Instructions Recorded Confirmed Last Taken Type apixaban [Eliquis] 1 tab PO BID 06/18/20 06/18/20 Unknown History lisinopril 1 tab PO DAILY 06/18/20 06/18/20 Unknown History metoprolol tartrate 1 tab PO BID 06/18/20 06/18/20 Unknown History omeprazole 1 cap PO DAILY 06/18/20 06/18/20 Unknown History paroxetine HCl 1 tab PO DAILY 06/19/20 Unknown History ziprasidone HCl 1 cap PO BID 06/19/20 Unknown History Exam Exam Date and Time: July 05, 2020 0819 Height,Weight and Vital Signs: Height 5 ft 9 in Weight 100 kg Last Vital Signs Temp 97.1 F 07/05/20 07:03 Pulse 63 07/05/20 07:03 Resp 16 07/05/20 07:03 BP 122/96 H 07/05/20 07:03 Pulse Ox 95 07/05/20 07:03 Pertinent Lab Results Pertinent Lab Results: Laboratory Tests 06/17/20 06/17/20 06/18/20 20:45 23:46 10:52 WBC 11.9 H RBC 5.36 Hgb 16.4 Hct 49.3 MCV 92.0 MCH 30.6 MCHC 33.3 RDW 13.5 Plt Count 286 MPV 9.2 L Immature Gran % (Auto) 0.3 Neut % (Auto) 74.3 H Lymph % (Auto) 15.3 L Dewitt % (Auto) 8.6 Eos % (Auto) 1.2 Baso % (Auto) 0.3 Lymph # (Auto) 1.8 Dewitt # (Auto) 1.0 Eos # (Auto) 0.1 Baso # (Auto) 0.0 Abs Immat Gran (auto) 0.03 Absolute Neuts (auto) 8.9 H Absolute Nucleated RBC 0.000 Nucleated RBC % (auto) 0.0 D-Dimer Sodium Potassium Chloride Carbon Dioxide Anion Gap BUN Creatinine Estim Creat Clear Calc Estimated GFR Random Glucose Estimat Average Glucose Hemoglobin A1c % Calcium Troponin I High Sens Triglycerides Cholesterol LDL Cholesterol, Calc HDL Cholesterol Vitamin B12 Folate TSH Free T4 Urine Opiates Screen Not Detected Ur Barbiturates Screen Not Detected Ur Phencyclidine Scrn Not Detected Ur Amphetamines Screen Not Detected U Benzodiazepines Scrn Not Detected Urine Cocaine Screen Not Detected U Marijuana (THC) Screen POSITIVE H COVID-19 ([facility]) Negative COVID-19 Clin Com See Note 06/18/20 06/18/20 06/20/20 10:52 Unknown 08:39 WBC RBC Hgb Hct MCV MCH MCHC RDW Plt Count MPV Immature Gran % (Auto) Neut % (Auto) Lymph % (Auto) Dewitt % (Auto) Eos % (Auto) Baso % (Auto) Lymph # (Auto) Dewitt # (Auto) Eos # (Auto) Baso # (Auto) Abs Immat Gran (auto) Absolute Neuts (auto) Absolute Nucleated RBC Nucleated RBC % (auto) D-Dimer 425 Sodium 139 Potassium 4.1 Chloride 107 Carbon Dioxide 22 Anion Gap 14 BUN 10 Creatinine 0.91 Estim Creat Clear Calc 114.3 Estimated GFR > 60 Random Glucose 102 Estimat Average Glucose 105 Hemoglobin A1c % 5.3 Calcium 9.2 Troponin I High Sens Triglycerides Cholesterol LDL Cholesterol, Calc HDL Cholesterol Vitamin B12 Folate TSH Free T4 Urine Opiates Screen Ur Barbiturates Screen Ur Phencyclidine Scrn Ur Amphetamines Screen U Benzodiazepines Scrn Urine Cocaine Screen U Marijuana (THC) Screen COVID-19 ([facility]) COVID-19 [employer] Com 06/20/20 06/20/20 06/29/20 08:39 08:39 11:57 WBC RBC Hgb Hct MCV MCH MCHC RDW Plt Count MPV Immature Gran % (Auto) Neut % (Auto) Lymph % (Auto) Dewitt % (Auto) Eos % (Auto) Baso % (Auto) Lymph # (Auto) Dewitt # (Auto) Eos # (Auto) Baso # (Auto) Abs Immat Gran (auto) Absolute Neuts (auto) Absolute Nucleated RBC Nucleated RBC % (auto) D-Dimer Sodium Potassium Chloride Carbon Dioxide Anion Gap BUN Creatinine Estim Creat Clear Calc Estimated GFR Random Glucose Estimat Average Glucose Hemoglobin A1c % Calcium Troponin I High Sens 4.1 Triglycerides 106 Cholesterol 213 LDL Cholesterol, Calc 150 HDL Cholesterol 42 Vitamin B12 246 Folate 9.9 TSH 0.72 Free T4 1.06 Urine Opiates Screen Ur Barbiturates Screen Ur Phencyclidine Scrn Ur Amphetamines Screen U Benzodiazepines Scrn Urine Cocaine Screen U Marijuana (THC) Screen COVID-19 ([facility]) COVID-19 Clin Com Airway Mallampati Class: II TM Dist: >3cm Neck ROM: Full Assessment and Plan Assessment Anesthesia Assessment: Anesthesia Plan Discussed and Chart Reviewed Final Anesthetic Review NPO: Yes ASA Class: II Final Preanesthetic Review: No Changes in Pt Med Stat, Meds/Allgs Chart Reviewed, Consent Obtained/Reviewed and Anes Risks/Benef Reviewed Patient Risk: Low Procedure Risk: Low Assessment/Block/Sedation in SS: Assess/Block/Sedation-SS Anesthetic Plan Anesthetic Plan: GA Disposition: Standard PACU
[2020-07-05] MEDS: FLUoxetine HCl Oral Solution 20 MG/5 ML SOLUTION 40 MG PO (09:49)
[2020-07-05] MEDS: Nicotine 21 MG PATCH.TD24 TRANSDERMA (09:49)
[2020-07-05] MEDS: Omeprazole 20 MG CAPSULE.DR PO (09:50)
[2020-07-05] MEDS: lisinopriL 5 MG TABLET PO (09:50)
[2020-07-05] MEDS: Metoprolol Tartrate 25 MG TABLET PO ×2 (09:50→21:05)
--- NOTE | 2020-07-05 12:44 | P.PCN_ITS ---
ECT Procedure Note Diagnosis/Treatment Date of Service: 07/08/20 Previous ECT Date: 07/03/20 Current Treatment Number: 3 Treatment: Series Interval Clinical Notes: Patient remains religiously preoccupied blunted depres sed minimally functioning ECT Settings Device: THYMATRON DGx Electrode Placement: Bifrontal Program/Pulse Width: 0.50 Energy Percent: 100 Seizure Duration By EEG (in seconds): 36 Medications Administration General Anesthetic: Etomidate (18) Muscle Relaxant: Succinylcholine (100) Ancillary Medications Analgesics: Torodol - Pre ECT Anti-emetics: Zofran - Pre ECT Miscillaneous Medications: Propofol (50) Airway Management Airway Management: Bag Mask Ventilation (with oral pharyngeal post tx ) Treatment Recommendations No Changes Recommended: No change Pt Tolerated Procedure w/o Issue: Yes
[2020-07-05] MEDS: Melatonin 3 MG TABLET 9 MG PO (21:04)
[2020-07-05] MEDS: OLANZapine 10 MG TABLET PO (21:05)
[2020-07-05] MEDS: ARIPiprazole 5 MG TABLET PO (21:05)
[2020-07-05] MEDS: clomiPRAMINE HCl 25 MG CAPSULE 50 MG PO (21:05)
--- NOTE | 2020-07-05 21:25 | P.PNPSI_ITS ---
Subjective Subjective Date of Service: 07/05/20 Reason For Visit: Schizophrenia Subjective Notes: [place]man Warning and Conditional Voluntary Interim History: The patient is depressed flat mostly nonverbal not engaged picking last but remains severely depressed Medication Compliance: Yes Mental Status Exam Mental Status Exam Patient Appearance: Disheveled Patient Orientation: Person, Place and Time Level of Consciousness: Lethargic Patient Behavior: Guarded and Isolative Mood Description: Constricted, Depressed, Blunted, Flat, Sad and Apprehensive Affect Description: Appropriate, Anxious, Blunted, Flat and Apprehensive Ability to Follow Directions: Fair Speech Pattern: Clear and Appropriate Memory Description: Recent Impaired Hallucinations: None (denies AH saying it was only thoughts, but never voices) Delusions: Not Present (currently denies; thought he was just prior to admission) Thought Process: Intact, Goal Oriented and Linear Thought Content: positive for [place] Judgement: Fair Judgement and Insight: insight impaired Diagnostics Vital Signs (24Hr): Vital Signs - 24 hr 07/05/20 05:38 07/05/20 05:57 07/05/20 07:03 Temperature 96.6 F L 96.6 F L 97.1 F Pulse Rate 67 67 63 Respiratory Rate 18 18 16 Blood Pressure 124/63 124/63 122/96 H Pulse Oximetry 94 94 95 07/05/20 08:40 07/05/20 08:45 07/05/20 08:50 Temperature 98.3 F Pulse Rate 80 92 79 Respiratory Rate 17 17 17 Blood Pressure 181/110 H 156/105 H 161/97 H Pulse Oximetry 96 96 96 07/05/20 08:55 07/05/20 09:50 07/05/20 10:13 Temperature 98.3 F Pulse Rate 82 98 98 Respiratory Rate 17 16 Blood Pressure 135/98 H 168/90 H 168/90 H Pulse Oximetry 96 07/05/20 18:10 07/05/20 21:05 Temperature 97.6 F Pulse Rate 82 98 Respiratory Rate Blood Pressure 123/89 119/77 Pulse Oximetry Body Mass Index 32.5 Labs Results: 06/18/20 10:52 06/18/20 10:52 Medications Medications Current Medications Generic Name Dose Route Start Last Admin Trade Name Freq PRN Reason Stop Dose Admin Acetaminophen 650 mg 06/19/20 15:34 Acetaminophen 325 Mg Tablet PO Q6H PRN Headache/Pain Mild Scale (1-3) Al Hydroxide/Mg Hydroxide 30 ml 06/19/20 15:34 Magnesium Hydrox/Alum Hydrox 30 Ml Oral.Susp PO Q6H PRN Heartburn/Nausea Aripiprazole 5 mg 07/05/20 21:00 07/05/20 21:05 Aripiprazole 5 Mg Tablet PO 5 mg BEDTIME FERNANDO Administration Clomipramine HCl 50 mg 07/03/20 21:00 07/05/20 21:05 Clomipramine Hcl 25 Mg Capsule PO 50 mg BEDTIME FERNANDO Administration Fluoxetine HCl 40 mg 07/04/20 09:00 07/05/20 09:49 Fluoxetine Hcl Oral Solution 20 Mg/5 Ml Solution PO 40 mg DAILY FERNANDO Administration Hydroxyzine HCl 25 mg 06/19/20 15:34 06/22/20 22:16 Hydroxyzine Hcl 25 Mg Tablet PO 25 mg BEDTIME PRN Administration Anxiety Lactated Ringer's 1,000 mls @ 20 mls/hr 07/05/20 08:30 07/05/20 09:48 Lr IVCONT Not Given .Q24H FERNANDO Lisinopril 5 mg 06/18/20 09:00 07/05/20 09:50 Lisinopril 5 Mg Tablet PO 5 mg DAILY FERNANDO Administration Protocol Lorazepam 1 mg 06/19/20 15:38 07/04/20 08:50 Lorazepam 1 Mg Tablet PO 1 mg Q6H PRN Administration Anxiety Magnesium Hydroxide 30 ml 06/19/20 15:34 Milk Of Magnesia 30 Ml Oral.Susp PO DAILY PRN Constipation Melatonin 9 mg 06/20/20 21:15 07/05/20 21:04 Melatonin 3 Mg Tablet PO 9 mg BEDTIME FERNANDO Administration Metoprolol Tartrate 25 mg 06/18/20 09:00 07/05/20 21:05 Metoprolol Tartrate 25 Mg Tablet PO 25 mg BID FERNANDO Administration Protocol Nicotine 21 mg 06/29/20 09:00 07/05/20 09:49 Nicotine 21 Mg Patch.Td24 TRANSDERMA 21 mg DAILY FERNANDO Administration Nicotine Polacrilex 2 mg 06/28/20 11:43 06/28/20 11:54 Nicotine Polacrilex 2 Mg Lozenge BUCCAL 2 mg Q2H PRN Administration Nicotine Cravings Olanzapine 10 mg 07/05/20 21:00 07/05/20 21:05 Olanzapine 10 Mg Tablet PO 10 mg BEDTIME FERNANDO Administration Omeprazole 20 mg 06/18/20 06:30 07/05/20 09:50 Omeprazole 20 Mg Capsule. PO 20 mg DAILY@0630 [facility] Administration Trazodone HCl 100 mg 06/21/20 17:46 Trazodone Hcl 100 Mg Tablet PO BEDTIME PRN Insomnia Allergies Allergies Allergy/AdvReac Type Severity Reaction Status Date / Time No Known Allergies Allergy Verified 06/17/20 20:38 [No Known Allergies*] Assessment & Plan Assessment & Plan (1) Severe recurrent major depression w/psychotic features, mood-congruent: Status: Acute Code(s): F33.3 - Major depressive disorder, recurrent, severe with psychotic symptoms Assessment and Plan: DX, Assessment and Plan: (1) Severe recurrent major depression w/psychotic features, mood-congruent: -continue ECT Has tolerated 3. In the past has required up to 10 taper Zyprexa start Abilify for severe recurrent depression continue Anafranil 50 mg (2) OCD (obsessive compulsive disorder): Assessment and Plan: cont prozac skin picking continues denies command or intentionality. Greater than 50% of the session was spent on counseling and/or coordination of care Greater than 50% of the session was spent on counseling and/or coordination of care Reason for contiued inpatient stay Substantial Risk for: harm to self, inability to function and rapid decompensati on
[2020-07-06 06:05] VITALS: BP 125/76; PULSE 62; RESP 18; TEMP 36.9; O2SAT 95
[2020-07-06] MEDS: Omeprazole 20 MG CAPSULE.DR PO (06:15)
[2020-07-06 08:20] VITALS: BP 146/72; PULSE 83
[2020-07-06] MEDS: FLUoxetine HCl Oral Solution 20 MG/5 ML SOLUTION 40 MG PO (08:20)
[2020-07-06] MEDS: Metoprolol Tartrate 25 MG TABLET PO ×2 (08:20→21:09)
[2020-07-06 08:22] VITALS: BP 146/72; PULSE 62
[2020-07-06] MEDS: lisinopriL 5 MG TABLET PO (08:22)
[2020-07-06] MEDS: Nicotine 21 MG PATCH.TD24 TRANSDERMA (08:27)
--- NOTE | 2020-07-06 18:50 | HO.PSYCHPN ---
Subjective Subjective Date of Service: 07/06/20 Reason For Visit: Schizophrenia Interim History: Chart reviewed; case discussed with team. Vitals reviewed: WnL pt reports doing well. He says he's sleeping ok, denies med side-effect, denies SI, AVH and has no complaints. Said he'd like to talk with Dr. Deng on Wednesday about discharge soon. Mental Status Exam Mental Status Exam Narrative: Patient Appearance: Disheveled, little malodorous Patient Orientation: Person, Place and Time Level of Consciousness: awake, alert Patient Behavior: calm, cooperative Mood Description: well Affect Description: congruent and Appropriate Ability to Follow Directions: Fair Speech Pattern: Clear and Appropriate Memory Description: Recent Impaired Hallucinations: None (denies AH saying it was only thoughts, but never voices) Delusions: Not Present (currently denies; thought he was just prior to admission) Thought Process: Intact, Goal Oriented and Linear Thought Content: positive for [place]; no SI; thinking of discharge soon Judgement: Fair Judgement and Insight: insight impaired Diagnostics Vital Signs (24Hr): Vital Signs - 24 hr 07/05/20 21:05 07/06/20 06:05 07/06/20 08:20 Temperature 98.4 F Pulse Rate 98 62 83 Respiratory Rate 18 Blood Pressure 119/77 125/76 146/72 H Pulse Oximetry 95 07/06/20 08:22 Temperature Pulse Rate 62 Respiratory Rate Blood Pressure 146/72 H Pulse Oximetry Body Mass Index 32.5 Labs Results: 06/18/20 10:52 06/18/20 10:52 Medications Medications Current Medications Generic Name Dose Route Start Last Admin Trade Name Coretta PRN Reason Stop Dose Admin Acetaminophen 650 mg 06/19/20 15:34 Acetaminophen 325 Mg Tablet PO Q6H PRN Headache/Pain Mild Scale (1-3) Al Hydroxide/Mg Hydroxide 30 ml 06/19/20 15:34 Magnesium Hydrox/Alum Hydrox 30 Ml Oral.Susp PO Q6H PRN Heartburn/Nausea Aripiprazole 5 mg 07/05/20 21:00 07/05/20 21:05 Aripiprazole 5 Mg Tablet PO 5 mg BEDTIME FERNANDO Administration Clomipramine HCl 50 mg 07/03/20 21:00 07/05/20 21:05 Clomipramine Hcl 25 Mg Capsule PO 50 mg BEDTIME FERNANDO Administration Fluoxetine HCl 40 mg 07/04/20 09:00 07/06/20 08:20 Fluoxetine Hcl Oral Solution 20 Mg/5 Ml Solution PO 40 mg DAILY FERNANDO Administration Hydroxyzine HCl 25 mg 06/19/20 15:34 06/22/20 22:16 Hydroxyzine Hcl 25 Mg Tablet PO 25 mg BEDTIME PRN Administration Anxiety Lactated Ringer's 1,000 mls @ 20 mls/hr 07/05/20 08:30 07/06/20 08:24 Lr IVCONT Not Given .Q24H FERNANDO Lisinopril 5 mg 06/18/20 09:00 07/06/20 08:22 Lisinopril 5 Mg Tablet PO 5 mg DAILY FERNANDO Administration Protocol Lorazepam 1 mg 06/19/20 15:38 07/04/20 08:50 Lorazepam 1 Mg Tablet PO 1 mg Q6H PRN Administration Anxiety Magnesium Hydroxide 30 ml 06/19/20 15:34 Milk Of Magnesia 30 Ml Oral.Susp PO DAILY PRN Constipation Melatonin 9 mg 06/20/20 21:15 07/05/20 21:04 Melatonin 3 Mg Tablet PO 9 mg BEDTIME FERNANDO Administration Metoprolol Tartrate 25 mg 06/18/20 09:00 07/06/20 08:20 Metoprolol Tartrate 25 Mg Tablet PO 25 mg BID FERNANDO Administration Protocol Nicotine 21 mg 06/29/20 09:00 07/06/20 08:27 Nicotine 21 Mg Patch.Td24 TRANSDERMA 21 mg DAILY FERNANDO Administration Nicotine Polacrilex 2 mg 06/28/20 11:43 06/28/20 11:54 Nicotine Polacrilex 2 Mg Lozenge BUCCAL 2 mg Q2H PRN Administration Nicotine Cravings Olanzapine 10 mg 07/05/20 21:00 07/05/20 21:05 Olanzapine 10 Mg Tablet PO 10 mg BEDTIME FERNANDO Administration Omeprazole 20 mg 06/18/20 06:30 07/06/20 06:15 Omeprazole 20 Mg Capsule.Dr PO 20 mg DAILY@0630 FERNANDO Administration Trazodone HCl 100 mg 06/21/20 17:46 Trazodone Hcl 100 Mg Tablet PO BEDTIME PRN Insomnia Allergies Allergies Allergy/AdvReac Type Severity Reaction Status Date / Time No Known Allergies Allergy Verified 06/17/20 20:38 [No Known Allergies*] Assessment & Plan Assessment & Plan (1) Severe recurrent major depression w/psychotic features, mood-congruent: Status: Acute Code(s): F33.3 - Major depressive disorder, recurrent, severe with psychotic symptoms Assessment and Plan: F/P no changes to primary team tx plan (see below) DX, Assessment and Plan: (1) Severe recurrent major depression w/psychotic features, mood-congruent: -continue ECT Has tolerated 3. In the past has required up to 10 taper Zyprexa start Abilify for severe recurrent depression continue Anafranil 50 mg (2) OCD (obsessive compulsive disorder): Assessment and Plan: cont prozac skin picking continues denies command or intentionality. Greater than 50% of the session was spent on counseling and/or coordination of care Greater than 50% of the session was spent on counseling and/or coordination of care Reason for contiued inpatient stay Substantial Risk for: med/psych decompensation
[2020-07-06 21:09] VITALS: BP 127/80; PULSE 120
[2020-07-06] MEDS: clomiPRAMINE HCl 25 MG CAPSULE 50 MG PO (21:09)
[2020-07-06] MEDS: ARIPiprazole 5 MG TABLET PO (21:09)
[2020-07-06] MEDS: OLANZapine 10 MG TABLET PO (21:09)
[2020-07-06] MEDS: Melatonin 3 MG TABLET 9 MG PO (21:09)
[2020-07-06 21:11] VITALS: TEMP 36.4
[2020-07-07 06:00] VITALS: BP 118/62; PULSE 79; RESP 18; TEMP 36.3; O2SAT 96
[2020-07-07] MEDS: Omeprazole 20 MG CAPSULE.DR PO (06:30)
[2020-07-07 08:17] VITALS: BP 124/71; PULSE 82; RESP 16; TEMP 36.6; O2SAT 94
[2020-07-07] MEDS: Nicotine 21 MG PATCH.TD24 TRANSDERMA (08:19)
[2020-07-07 08:20] VITALS: BP 124/71; PULSE 82
[2020-07-07] MEDS: Metoprolol Tartrate 25 MG TABLET PO ×2 (08:20→21:25)
[2020-07-07] MEDS: FLUoxetine HCl Oral Solution 20 MG/5 ML SOLUTION 40 MG PO (08:20)
[2020-07-07] MEDS: lisinopriL 5 MG TABLET PO (08:20)
--- NOTE | 2020-07-07 09:13 | HO.PSYCHPN ---
Subjective Subjective Date of Service: 07/07/20 Reason For Visit: Schizophrenia Interim History: Chart reviewed; case discussed with team. Vitals reviewed: WNL Pt resting in bed; says he's good , no complaints; no SI, no AVH he mentions discussing discharge with on Wednesday in good behavioral control and appropriate with staff and peers, though remains on isolative side Attending Groups: Yes (with prompting) Mental Status Exam Mental Status Exam Narrative: Patient Appearance: unkempt, little malodorous Patient Orientation: Person, Place and Time Level of Consciousness: awake, alert Patient Behavior: calm, cooperative Mood Description: good Affect Description: congruent and Appropriate Ability to Follow Directions: Fair Speech Pattern: Clear and Appropriate Memory Description: Recent Impaired Hallucinations: None (denies AH saying it was only thoughts, but never voices) Delusions: Not Present Thought Process: Intact, Goal Oriented and Linear Thought Content: positive for [place]; no SI;considering discharge Judgement: Fair Judgement and Insight: insight limited Diagnostics Vital Signs (24Hr): Vital Signs - 24 hr 07/06/20 21:09 07/06/20 21:11 07/07/20 06:00 Temperature 97.5 F 97.3 F Pulse Rate 120 H 79 Respiratory Rate 18 Blood Pressure 127/80 118/62 Pulse Oximetry 96 07/07/20 08:17 07/07/20 08:20 Temperature 98 F Pulse Rate 82 82 Respiratory Rate 16 Blood Pressure 124/71 124/71 Pulse Oximetry 94 Body Mass Index 32.5 Labs Results: 06/18/20 10:52 06/18/20 10:52 Medications Medications Current Medications Generic Name Dose Route Start Last Admin Trade Name Freq PRN Reason Stop Dose Admin Acetaminophen 650 mg 06/19/20 15:34 Acetaminophen 325 Mg Tablet PO Q6H PRN Headache/Pain Mild Scale (1-3) Al Hydroxide/Mg Hydroxide 30 ml 06/19/20 15:34 Magnesium Hydrox/Alum Hydrox 30 Ml Oral.Susp PO Q6H PRN Heartburn/Nausea Aripiprazole 5 mg 07/05/20 21:00 07/06/20 21:09 Aripiprazole 5 Mg Tablet PO 5 mg BEDTIME FERNANDO Administration Clomipramine HCl 50 mg 07/03/20 21:00 07/06/20 21:09 Clomipramine Hcl 25 Mg Capsule PO 50 mg BEDTIME FERNANDO Administration Fluoxetine HCl 40 mg 07/04/20 09:00 07/07/20 08:20 Fluoxetine Hcl Oral Solution 20 Mg/5 Ml Solution PO 40 mg DAILY FERNANDO Administration Hydroxyzine HCl 25 mg 06/19/20 15:34 06/22/20 22:16 Hydroxyzine Hcl 25 Mg Tablet PO 25 mg BEDTIME PRN Administration Anxiety Lactated Ringer's 1,000 mls @ 20 mls/hr 07/05/20 08:30 07/07/20 08:47 Lr IVCONT Not Given .Q24H FERNANDO Lisinopril 5 mg 06/18/20 09:00 07/07/20 08:20 Lisinopril 5 Mg Tablet PO 5 mg DAILY FERNANDO Administration Protocol Lorazepam 1 mg 06/19/20 15:38 07/04/20 08:50 Lorazepam 1 Mg Tablet PO 1 mg Q6H PRN Administration Anxiety Magnesium Hydroxide 30 ml 06/19/20 15:34 Milk Of Magnesia 30 Ml Oral.Susp PO DAILY PRN Constipation Melatonin 9 mg 06/20/20 21:15 07/06/20 21:09 Melatonin 3 Mg Tablet PO 9 mg BEDTIME FERNANDO Administration Metoprolol Tartrate 25 mg 06/18/20 09:00 07/07/20 08:20 Metoprolol Tartrate 25 Mg Tablet PO 25 mg BID FERNANDO Administration Protocol Nicotine 21 mg 06/29/20 09:00 07/07/20 08:19 Nicotine 21 Mg Patch.Td24 TRANSDERMA 21 mg DAILY FERNANDO Administration Nicotine Polacrilex 2 mg 06/28/20 11:43 06/28/20 11:54 Nicotine Polacrilex 2 Mg Lozenge BUCCAL 2 mg Q2H PRN Administration Nicotine Cravings Olanzapine 10 mg 07/05/20 21:00 07/06/20 21:09 Olanzapine 10 Mg Tablet PO 10 mg BEDTIME FERNANDO Administration Omeprazole 20 mg 06/18/20 06:30 07/07/20 06:30 Omeprazole 20 Mg Capsule.Dr PO 20 mg DAILY@0630 FERNANDO Administration Trazodone HCl 100 mg 06/21/20 17:46 Trazodone Hcl 100 Mg Tablet PO BEDTIME PRN Insomnia Allergies Allergies Allergy/AdvReac Type Severity Reaction Status Date / Time No Known Allergies Allergy Verified 06/17/20 20:38 [No Known Allergies*] Assessment & Plan Assessment & Plan (1) Severe recurrent major depression w/psychotic features, mood-congruent: Status: Acute Code(s): F33.3 - Major depressive disorder, recurrent, severe with psychotic symptoms Assessment and Plan: F/P remains stable; insight somewhat limited talks about potential discharge which he's done since coming on to unit no changes to primary team tx plan (see below) DX, Assessment and Plan: (1) Severe recurrent major depression w/psychotic features, mood-congruent: -continue ECT Has tolerated 3. In the past has required up to 10 taper Zyprexa start Abilify for severe recurrent depression continue Anafranil 50 mg (2) OCD (obsessive compulsive disorder): Assessment and Plan: cont prozac skin picking continues denies command or intentionality. Greater than 50% of the session was spent on counseling and/or coordination of care Greater than 50% of the session was spent on counseling and/or coordination of care Reason for contiued inpatient stay Substantial Risk for: med/psych decompensation
[2020-07-07 21:25] VITALS: BP 129/74; PULSE 110
[2020-07-07] MEDS: clomiPRAMINE HCl 25 MG CAPSULE 50 MG PO (21:25)
[2020-07-07] MEDS: Melatonin 3 MG TABLET 9 MG PO (21:25)
[2020-07-07] MEDS: OLANZapine 10 MG TABLET PO (21:25)
[2020-07-07] MEDS: ARIPiprazole 5 MG TABLET PO (21:25)
[2020-07-07 21:27] VITALS: TEMP 36.7
[2020-07-08] VITALS (12 sets, daily range): BP systolic 118–159; BP diastolic 59–99; PULSE 67–104; RESP 16–20; TEMP 36.1–36.8; O2SAT 91–98; BMI 33.2
--- NOTE | 2020-07-08 07:02 | MHC.SHP ---
Pre-Procedural Eval Section A The patient is an INPATIENT: Yes Changes since office visit: No Cold of Flu in the past 2 weeks, No New Medical Problems, No Changes in Medication and No Patient answered all questions The History & Physical has been completed within 30 days and I have reviewed it.: Yes Section B Chief Complaint: Schizophrenia Allergies: Allergies Allergy/AdvReac Type Severity Reaction Status Date / Time No Known Allergies Allergy Verified 06/17/20 20:38 [No Known Allergies*] Plan I have reviewed the history and physical and performed a pertinent physical examination on my patient. No changes have occurred unless specified.
--- NOTE | 2020-07-08 07:10 | HO.ANESPROP2 ---
[facility] Active Problems Active Problems: All Active Problems (Updated 06/29/20 @ 19:05 by Zaki Juan MD) Preoperative clearance (Acute) Skin-picking disorder (Acute) OCD (obsessive compulsive disorder) (Acute) Severe recurrent major depression w/psychotic features, mood-congruent (Acute) HTN (hypertension) (Acute) JAMES (obstructive sleep apnea) (Acute) GERD (gastroesophageal reflux disease) (Acute) Psychosis (Acute) Anxiety (Acute) Past Medical History Medical History Anxiety Depression GERD (gastroesophageal reflux disease) Hernia HTN (hypertension) OCD (obsessive compulsive disorder) JAMES (obstructive sleep apnea) Pulmonary emboli Severe recurrent major depression w/psychotic features, mood-congruent Skin-picking disorder TBI (traumatic brain injury) Social History Social History Household Members: Family Housing: House Alcohol intake: former Smoking Status: Current every day smoker Tobacco Type: Cigarette Packs Per Day: 1 Cigarettes Per Day: 20.0 Years Smoked: 18 Second Hand Smoke Exposure: No Substance Use Type: Unknown service: No Sexual orientation: Straight/Heterosexual Meds Allergies Allergy/AdvReac Type Severity Reaction Status Date / Time No Known Allergies Allergy Verified 06/17/20 20:38 [No Known Allergies*] Active Medications: Current Medications Generic Name Dose Route Start Last Admin Trade Name Freq PRN Reason Stop Dose Admin Acetaminophen 650 mg 06/19/20 15:34 Acetaminophen 325 Mg Tablet PO Q6H PRN Headache/Pain Mild Scale (1-3) Al Hydroxide/Mg Hydroxide 30 ml 06/19/20 15:34 Magnesium Hydrox/Alum Hydrox 30 Ml Oral.Susp PO Q6H PRN Heartburn/Nausea Aripiprazole 5 mg 07/05/20 21:00 07/07/20 21:25 Aripiprazole 5 Mg Tablet PO 5 mg BEDTIME FERNANDO Administration Clomipramine HCl 50 mg 07/03/20 21:00 07/07/20 21:25 Clomipramine Hcl 25 Mg Capsule PO 50 mg BEDTIME FERNANDO Administration Fluoxetine HCl 40 mg 07/04/20 09:00 07/07/20 08:20 Fluoxetine Hcl Oral Solution 20 Mg/5 Ml Solution PO 40 mg DAILY FERNANDO Administration Hydroxyzine HCl 25 mg 06/19/20 15:34 06/22/20 22:16 Hydroxyzine Hcl 25 Mg Tablet PO 25 mg BEDTIME PRN Administration Anxiety Lactated Ringer's 1,000 mls @ 20 mls/hr 07/05/20 08:30 07/07/20 08:47 Lr IVCONT Not Given .Q24H FERNANDO Lisinopril 5 mg 06/18/20 09:00 07/07/20 08:20 Lisinopril 5 Mg Tablet PO 5 mg DAILY FERNANDO Administration Protocol Lorazepam 1 mg 06/19/20 15:38 07/04/20 08:50 Lorazepam 1 Mg Tablet PO 1 mg Q6H PRN Administration Anxiety Magnesium Hydroxide 30 ml 06/19/20 15:34 Milk Of Magnesia 30 Ml Oral.Susp PO DAILY PRN Constipation Melatonin 9 mg 06/20/20 21:15 07/07/20 21:25 Melatonin 3 Mg Tablet PO 9 mg BEDTIME FERNANDO Administration Metoprolol Tartrate 25 mg 06/18/20 09:00 07/07/20 21:25 Metoprolol Tartrate 25 Mg Tablet PO 25 mg BID FERNANDO Administration Protocol Nicotine 21 mg 06/29/20 09:00 07/07/20 08:19 Nicotine 21 Mg Patch.Td24 TRANSDERMA 21 mg DAILY FERNANDO Administration Nicotine Polacrilex 2 mg 06/28/20 11:43 06/28/20 11:54 Nicotine Polacrilex 2 Mg Lozenge BUCCAL 2 mg Q2H PRN Administration Nicotine Cravings Olanzapine 10 mg 07/05/20 21:00 07/07/20 21:25 Olanzapine 10 Mg Tablet PO 10 mg BEDTIME FERNANDO Administration Omeprazole 20 mg 06/18/20 06:30 07/07/20 06:30 Omeprazole 20 Mg Capsule.Dr PO 20 mg DAILY@0630 FERNANDO Administration Trazodone HCl 100 mg 06/21/20 17:46 Trazodone Hcl 100 Mg Tablet PO BEDTIME PRN Insomnia Home Medications Medication Instructions Recorded Confirmed Last Taken Type apixaban [Eliquis] 1 tab PO BID 06/18/20 06/18/20 Unknown History lisinopril 1 tab PO DAILY 06/18/20 06/18/20 Unknown History metoprolol tartrate 1 tab PO BID 06/18/20 06/18/20 Unknown History omeprazole 1 cap PO DAILY 06/18/20 06/18/20 Unknown History paroxetine HCl 1 tab PO DAILY 06/19/20 Unknown History ziprasidone HCl 1 cap PO BID 06/19/20 Unknown History Exam Exam Date and Time: July 08, 2020 0710 Height,Weight and Vital Signs: Height 5 ft 9 in Weight 102.058 kg Last Vital Signs Temp 98.3 F 07/08/20 07:03 Pulse 67 07/08/20 07:03 Resp 20 07/08/20 07:03 BP 120/75 07/08/20 07:03 Pulse Ox 91 L 07/08/20 07:03 Pertinent Lab Results Pertinent Lab Results: Laboratory Tests 06/17/20 06/17/20 06/18/20 20:45 23:46 10:52 WBC 11.9 H RBC 5.36 Hgb 16.4 Hct 49.3 MCV 92.0 MCH 30.6 MCHC 33.3 RDW 13.5 Plt Count 286 MPV 9.2 L Immature Gran % (Auto) 0.3 Neut % (Auto) 74.3 H Lymph % (Auto) 15.3 L Prentiss % (Auto) 8.6 Eos % (Auto) 1.2 Baso % (Auto) 0.3 Lymph # (Auto) 1.8 Prentiss # (Auto) 1.0 Eos # (Auto) 0.1 Baso # (Auto) 0.0 Abs Immat Gran (auto) 0.03 Absolute Neuts (auto) 8.9 H Absolute Nucleated RBC 0.000 Nucleated RBC % (auto) 0.0 D-Dimer Sodium Potassium Chloride Carbon Dioxide Anion Gap BUN Creatinine Estim Creat Clear Calc Estimated GFR Random Glucose Estimat Average Glucose Hemoglobin A1c % Calcium Troponin I High Sens Triglycerides Cholesterol LDL Cholesterol, Calc HDL Cholesterol Vitamin B12 Folate TSH Free T4 Urine Opiates Screen Not Detected Ur Barbiturates Screen Not Detected Ur Phencyclidine Scrn Not Detected Ur Amphetamines Screen Not Detected U Benzodiazepines Scrn Not Detected Urine Cocaine Screen Not Detected U Marijuana (THC) Screen POSITIVE H COVID-19 ([facility]) Negative COVID-19 Clin Com See Note 06/18/20 06/18/20 06/20/20 10:52 Unknown 08:39 WBC RBC Hgb Hct MCV MCH MCHC RDW Plt Count MPV Immature Gran % (Auto) Neut % (Auto) Lymph % (Auto) Prentiss % (Auto) Eos % (Auto) Baso % (Auto) Lymph # (Auto) Prentiss # (Auto) Eos # (Auto) Baso # (Auto) Abs Immat Gran (auto) Absolute Neuts (auto) Absolute Nucleated RBC Nucleated RBC % (auto) D-Dimer 425 Sodium 139 Potassium 4.1 Chloride 107 Carbon Dioxide 22 Anion Gap 14 BUN 10 Creatinine 0.91 Estim Creat Clear Calc 114.3 Estimated GFR > 60 Random Glucose 102 Estimat Average Glucose 105 Hemoglobin A1c % 5.3 Calcium 9.2 Troponin I High Sens Triglycerides Cholesterol LDL Cholesterol, Calc HDL Cholesterol Vitamin B12 Folate TSH Free T4 Urine Opiates Screen Ur Barbiturates Screen Ur Phencyclidine Scrn Ur Amphetamines Screen U Benzodiazepines Scrn Urine Cocaine Screen U Marijuana (THC) Screen COVID-19 ([facility]) COVID-19 [facility] 06/20/20 06/20/20 06/29/20 08:39 08:39 11:57 WBC RBC Hgb Hct MCV MCH MCHC RDW Plt Count MPV Immature Gran % (Auto) Neut % (Auto) Lymph % (Auto) Prentiss % (Auto) Eos % (Auto) Baso % (Auto) Lymph # (Auto) Prentiss # (Auto) Eos # (Auto) Baso # (Auto) Abs Immat Gran (auto) Absolute Neuts (auto) Absolute Nucleated RBC Nucleated RBC % (auto) D-Dimer Sodium Potassium Chloride Carbon Dioxide Anion Gap BUN Creatinine Estim Creat Clear Calc Estimated GFR Random Glucose Estimat Average Glucose Hemoglobin A1c % Calcium Troponin I High Sens 4.1 Triglycerides 106 Cholesterol 213 LDL Cholesterol, Calc 150 HDL Cholesterol 42 Vitamin B12 246 Folate 9.9 TSH 0.72 Free T4 1.06 Urine Opiates Screen Ur Barbiturates Screen Ur Phencyclidine Scrn Ur Amphetamines Screen U Benzodiazepines Scrn Urine Cocaine Screen U Marijuana (THC) Screen COVID-19 ([facility]) COVID-19 [employer] [facility] Airway Mallampati Class: III TM Dist: >3cm Neck ROM: Full Partial: Upper Heart: RRr Lungs: CTA Bl Assessment and Plan Assessment Anesthesia Assessment: Anesthesia Plan Discussed and Chart Reviewed Final Anesthetic Review NPO: Yes ASA Class: III Final Preanesthetic Review: No Changes in Pt Med Stat and Consent Obtained/Reviewed Patient Risk: Intermediate Procedure Risk: Intermediate Anesthetic Plan Anesthetic Plan: GA Disposition: Standard PACU
--- NOTE | 2020-07-08 07:30 | HO.ECTPROC ---
ECT Procedure Note Diagnosis/Treatment Date of Service: 07/08/20 Diagnosis: Schizoaffective Disorder Previous ECT Date: 07/05/20 Current Treatment Number: 4 Treatment: Series Interval Clinical Notes: The patient remains minimally functioning, denies new symptoms, still dysphoric. very sleepy before the procedure. ECT Settings Device: THYMATRON DGx Electrode Placement: Bifrontal Program/Pulse Width: 0.50 Energy Percent: 100 Seizure Duration By EEG (in seconds): 64 By Motor Observation (in seconds): 42 Medications Administration General Anesthetic: Etomidate (16) Muscle Relaxant: Succinylcholine (100) Ancillary Medications Analgesics: Torodol - Pre ECT Anti-emetics: Zofran - Pre ECT Miscillaneous Medications: Propofol and Flumazenil Airway Management Airway Management: Bag Mask Ventilation Treatment Recommendations No Changes Recommended: No change Pt Tolerated Procedure w/o Issue: Yes
[2020-07-08] MEDS: lisinopriL 5 MG TABLET PO (08:37)
[2020-07-08] MEDS: Metoprolol Tartrate 25 MG TABLET PO ×2 (08:37→20:57)
[2020-07-08] MEDS: FLUoxetine HCl Oral Solution 20 MG/5 ML SOLUTION 40 MG PO (08:37)
[2020-07-08] MEDS: Omeprazole 20 MG CAPSULE.DR PO (08:37)
[2020-07-08] MEDS: Nicotine 21 MG PATCH.TD24 TRANSDERMA (08:38)
--- NOTE | 2020-07-08 10:30 | HO.PSYCHPN ---
Subjective Subjective Date of Service: 07/08/20 Reason For Visit: Schizophrenia Interim History: The patient has been depressed with no energy at all, he stated that ECT has not worked yet. He has severe JAMES and apparently the settings and fit of the CPAP could not be stable. Respiratory consult was asked to review CPAP. Medication Compliance: Yes Side effects from medications: No Attending Groups: No Review of Systems Acute medical concerns: No Medical Review of Systems: unchanged Mental Status Exam Mental Status Exam Patient Appearance: Disheveled Patient Orientation: Person and Place Level of Consciousness: Drowsy and Sedated Patient Behavior: Passive Mood Description: Withdrawn Affect Description: Constricted and Flat Patient Cognition Impaired: No Ability to Follow Directions: Good Speech Pattern: Clear Memory Description: Intact Hallucinations: None Delusions: Not Present Thought Process: Distracted and Slowed Thinking Thought Content: positive for Circumstantial Depressive Symptoms: Difficulty Sleeping, Sleeping More Than Usual, Feelings of Worthlessness and Hopelessness Abnormal Motor Activity Signs and Symptoms: Psychomotor Retardation Judgement: Fair Diagnostics Vital Signs (24Hr): Vital Signs - 24 hr 07/07/20 21:25 07/07/20 21:27 07/08/20 05:50 Temperature 98.0 F 98.2 F Pulse Rate 110 H 93 Respiratory Rate 18 Blood Pressure 129/74 133/72 Pulse Oximetry 94 07/08/20 07:03 07/08/20 07:54 07/08/20 07:59 Temperature 98.3 F 98.0 F Pulse Rate 67 90 90 Respiratory Rate 20 16 16 Blood Pressure 120/75 151/91 H 153/98 H Pulse Oximetry 91 L 95 98 07/08/20 08:04 07/08/20 08:09 07/08/20 08:24 Temperature 98.0 F Pulse Rate 80 85 96 Respiratory Rate 20 18 17 Blood Pressure 149/99 H 134/83 147/80 H Pulse Oximetry 98 96 96 07/08/20 08:25 07/08/20 08:37 07/08/20 09:59 Temperature 97.0 F 97.0 F Pulse Rate 77 77 82 Respiratory Rate Blood Pressure 158/99 H 159/99 H 118/61 Pulse Oximetry 94 94 Body Mass Index 33.2 Labs Results: 06/18/20 10:52 06/18/20 10:52 Medications Medications Current Medications Generic Name Dose Route Start Last Admin Trade Name Freq PRN Reason Stop Dose Admin Acetaminophen 650 mg 06/19/20 15:34 Acetaminophen 325 Mg Tablet PO Q6H PRN Headache/Pain Mild Scale (1-3) Al Hydroxide/Mg Hydroxide 30 ml 06/19/20 15:34 Magnesium Hydrox/Alum Hydrox 30 Ml Oral.Susp PO Q6H PRN Heartburn/Nausea Aripiprazole 5 mg 07/05/20 21:00 07/07/20 21:25 Aripiprazole 5 Mg Tablet PO 5 mg BEDTIME FERNANDO Administration Clomipramine HCl 50 mg 07/03/20 21:00 07/07/20 21:25 Clomipramine Hcl 25 Mg Capsule PO 50 mg BEDTIME FERNANDO Administration Fluoxetine HCl 40 mg 07/04/20 09:00 07/08/20 08:37 Fluoxetine Hcl Oral Solution 20 Mg/5 Ml Solution PO 40 mg DAILY FERNANDO Administration Hydroxyzine HCl 25 mg 06/19/20 15:34 06/22/20 22:16 Hydroxyzine Hcl 25 Mg Tablet PO 25 mg BEDTIME PRN Administration Anxiety Lisinopril 5 mg 06/18/20 09:00 07/08/20 08:37 Lisinopril 5 Mg Tablet PO 5 mg DAILY FERNANDO Administration Protocol Lorazepam 1 mg 06/19/20 15:38 07/04/20 08:50 Lorazepam 1 Mg Tablet PO 1 mg Q6H PRN Administration Anxiety Magnesium Hydroxide 30 ml 06/19/20 15:34 Milk Of Magnesia 30 Ml Oral.Susp PO DAILY PRN Constipation Melatonin 9 mg 06/20/20 21:15 07/07/20 21:25 Melatonin 3 Mg Tablet PO 9 mg BEDTIME FERNANDO Administration Metoprolol Tartrate 25 mg 06/18/20 09:00 07/08/20 08:37 Metoprolol Tartrate 25 Mg Tablet PO 25 mg BID FERNANDO Administration Protocol Nicotine 21 mg 06/29/20 09:00 07/08/20 08:38 Nicotine 21 Mg Patch.Td24 TRANSDERMA 21 mg DAILY FERNANDO Administration Nicotine Polacrilex 2 mg 06/28/20 11:43 06/28/20 11:54 Nicotine Polacrilex 2 Mg Lozenge BUCCAL 2 mg Q2H PRN Administration Nicotine Cravings Olanzapine 10 mg 07/05/20 21:00 07/07/20 21:25 Olanzapine 10 Mg Tablet PO 10 mg BEDTIME FERNANDO Administration Omeprazole 20 mg 06/18/20 06:30 07/08/20 08:37 Omeprazole 20 Mg Capsule. PO 20 mg DAILY@0630 FERNANDO Administration Trazodone HCl 100 mg 06/21/20 17:46 Trazodone Hcl 100 Mg Tablet PO BEDTIME PRN Insomnia Allergies Allergies Allergy/AdvReac Type Severity Reaction Status Date / Time No Known Allergies Allergy Verified 06/17/20 20:38 [No Known Allergies*] Assessment & Plan Assessment & Plan (1) Severe recurrent major depression w/psychotic features, mood-congruent: Status: Acute Code(s): F33.3 - Major depressive disorder, recurrent, severe with psychotic symptoms Assessment and Plan: F/P remains stable; insight somewhat limited talks about potential discharge which he's done since coming on to unit no changes to primary team tx plan (see below) DX, Assessment and Plan: (1) Severe recurrent major depression w/psychotic features, mood-congruent: -continue ECT Has tolerated 3. In the past has required up to 10 taper Zyprexa start Abilify for severe recurrent depression continue Anafranil 50 mg. Today 07/08, Zyprexa is down to 5 mg po qhs and Abilify increase up to 10 mg po qam. (2) OCD (obsessive compulsive disorder): Assessment and Plan: cont prozac skin picking continues denies command or intentionality. Greater than 50% of the session was spent on counseling and/or coordination of care Greater than 50% of the session was spent on counseling and/or coordination of care Reason for contiued inpatient stay Substantial Risk for: harm to self, harm to others, inability to function, rapid decompensation and med/psych decompensation
[2020-07-08] MEDS: Melatonin 3 MG TABLET 9 MG PO (20:55)
[2020-07-08] MEDS: clomiPRAMINE HCl 25 MG CAPSULE 50 MG PO (20:56)
[2020-07-08] MEDS: OLANZapine 5 MG TABLET PO (20:56)
[2020-07-08] MEDS: ARIPiprazole 10 MG TABLET PO (20:58)
[2020-07-09] MEDS: Omeprazole 20 MG CAPSULE.DR PO (05:57)
[2020-07-09 06:00] VITALS: BP 118/71; PULSE 91; RESP 18; TEMP 36.4; O2SAT 95
[2020-07-09 08:39] VITALS: BP 122/62; PULSE 83
[2020-07-09] MEDS: lisinopriL 5 MG TABLET PO (08:39)
[2020-07-09] MEDS: Metoprolol Tartrate 25 MG TABLET PO ×2 (08:39→21:10)
[2020-07-09] MEDS: FLUoxetine HCl Oral Solution 20 MG/5 ML SOLUTION 40 MG PO (08:40)
[2020-07-09] MEDS: Nicotine 21 MG PATCH.TD24 TRANSDERMA (08:40)
[2020-07-09 08:53] VITALS: BP 122/62; PULSE 83; TEMP 36.7; O2SAT 95
[2020-07-09 18:00] VITALS: BP 130/78; PULSE 85; TEMP 36.9
[2020-07-09] MEDS: Melatonin 3 MG TABLET PO (20:55)
[2020-07-09] MEDS: clomiPRAMINE HCl 25 MG CAPSULE 50 MG PO (20:55)
[2020-07-09] MEDS: ARIPiprazole 10 MG TABLET PO (20:55)
[2020-07-09 21:10] VITALS: BP 134/85; PULSE 87
--- NOTE | 2020-07-09 23:30 | HO.PSYCHPN ---
Subjective Subjective Date of Service: 07/09/20 Reason For Visit: Schizophrenia Subjective Notes: Conditional Voluntary Interim History: Patient with somewhat cabrera affect staying out of bed somewhat more no cognitive impairment noted Medication Compliance: Yes Side effects from medications: Yes Attending Groups: Intermittent Mental Status Exam Mental Status Exam Patient Appearance: Disheveled Patient Orientation: Person and Place Level of Consciousness: Drowsy and Sedated Patient Behavior: Passive Mood Description: Withdrawn Affect Description: Constricted and Flat Patient Cognition Impaired: No Ability to Follow Directions: Good Speech Pattern: Clear Memory Description: Intact Hallucinations: None Delusions: Not Present Thought Process: Distracted and Goal Oriented Thought Content: positive for Circumstantial and positive for Poverty of Content Depressive Symptoms: Difficulty Sleeping, Sleeping More Than Usual, Feelings of Worthlessness and Hopelessness Abnormal Motor Activity Signs and Symptoms: Psychomotor Retardation Judgement: Fair Diagnostics Vital Signs (24Hr): Vital Signs - 24 hr 07/09/20 06:00 07/09/20 08:39 07/09/20 08:53 Temperature 97.6 F 98.1 F Pulse Rate 91 83 83 Respiratory Rate 18 Blood Pressure 118/71 122/62 122/62 Pulse Oximetry 95 95 07/09/20 18:00 07/09/20 21:10 Temperature 98.5 F Pulse Rate 85 87 Respiratory Rate Blood Pressure 130/78 134/85 Pulse Oximetry Body Mass Index 33.2 Labs Results: 06/18/20 10:52 06/18/20 10:52 Medications Medications Current Medications Generic Name Dose Route Start Last Admin Trade Name Freq PRN Reason Stop Dose Admin Acetaminophen 650 mg 06/19/20 15:34 Acetaminophen 325 Mg Tablet PO Q6H PRN Headache/Pain Mild Scale (1-3) Al Hydroxide/Mg Hydroxide 30 ml 06/19/20 15:34 Magnesium Hydrox/Alum Hydrox 30 Ml Oral.Susp PO Q6H PRN Heartburn/Nausea Aripiprazole 10 mg 07/08/20 21:00 07/09/20 20:55 Aripiprazole 10 Mg Tablet PO 10 mg BEDTIME FERNANDO Administration Clomipramine HCl 50 mg 07/03/20 21:00 07/09/20 20:55 Clomipramine Hcl 25 Mg Capsule PO 50 mg BEDTIME FERNANDO Administration Fluoxetine HCl 40 mg 07/04/20 09:00 07/09/20 08:40 Fluoxetine Hcl Oral Solution 20 Mg/5 Ml Solution PO 40 mg DAILY FERNANDO Administration Hydroxyzine HCl 25 mg 06/19/20 15:34 06/22/20 22:16 Hydroxyzine Hcl 25 Mg Tablet PO 25 mg BEDTIME PRN Administration Anxiety Lisinopril 5 mg 06/18/20 09:00 07/09/20 08:39 Lisinopril 5 Mg Tablet PO 5 mg DAILY FERNANDO Administration Protocol Lorazepam 1 mg 06/19/20 15:38 07/04/20 08:50 Lorazepam 1 Mg Tablet PO 1 mg Q6H PRN Administration Anxiety Magnesium Hydroxide 30 ml 06/19/20 15:34 Milk Of Magnesia 30 Ml Oral.Susp PO DAILY PRN Constipation Melatonin 3 mg 07/09/20 21:00 07/09/20 20:55 Melatonin 3 Mg Tablet PO 3 mg BEDTIME FERNANDO Administration Metoprolol Tartrate 25 mg 06/18/20 09:00 07/09/20 21:10 Metoprolol Tartrate 25 Mg Tablet PO 25 mg BID FERNANDO Administration Protocol Nicotine 21 mg 06/29/20 09:00 07/09/20 08:40 Nicotine 21 Mg Patch.Td24 TRANSDERMA 21 mg DAILY FERNANDO Administration Nicotine Polacrilex 2 mg 06/28/20 11:43 06/28/20 11:54 Nicotine Polacrilex 2 Mg Lozenge BUCCAL 2 mg Q2H PRN Administration Nicotine Cravings Omeprazole 20 mg 06/18/20 06:30 07/09/20 05:57 Omeprazole 20 Mg Capsule.Dr PO 20 mg DAILY@0630 FERNANDO Administration Trazodone HCl 100 mg 06/21/20 17:46 Trazodone Hcl 100 Mg Tablet PO BEDTIME PRN Insomnia Allergies Allergies Allergy/AdvReac Type Severity Reaction Status Date / Time No Known Allergies Allergy Verified 06/17/20 20:38 [No Known Allergies*] Assessment & Plan Assessment & Plan (1) Severe recurrent major depression w/psychotic features, mood-congruent: Status: Acute Code(s): F33.3 - Major depressive disorder, recurrent, severe with psychotic symptoms Assessment and Plan: F/P remains stable; insight somewhat limited talks about potential discharge which he's done since coming on to unit no changes to primary team tx plan (see below) DX, Assessment and Plan: (1) Severe recurrent major depression w/psychotic features, mood-congruent: -continue ECT Continue ECT and Abilify. Olanzapine discontinue patient showing some early improvement (2) OCD (obsessive compulsive disorder): Assessment and Plan: cont prozac skin picking continues denies command or intentionality. Greater than 50% of the session was spent on counseling and/or coordination of care Greater than 50% of the session was spent on counseling and/or coordination of care Reason for contiued inpatient stay Substantial Risk for: inability to function and rapid decompensation
[2020-07-10] VITALS (13 sets, daily range): BP systolic 125–161; BP diastolic 63–109; PULSE 63–107; RESP 16–20; TEMP 35.8–36.8; O2SAT 93–165; BMI 33.2
--- NOTE | 2020-07-10 10:34 | HO.ECTPROC ---
ECT Procedure Note Diagnosis/Treatment Date of Service: 07/10/20 Diagnosis: Schizoaffective Disorder Previous ECT Date: 07/08/20 Current Treatment Number: 5 Treatment: Series Interval Clinical Notes: The patient has improved, his mood is better, less dysphoric, affect is brighter. NO side effects. ECT Settings Device: THYMATRON DGx Electrode Placement: Bifrontal Program/Pulse Width: 0.50 Energy Percent: 100 Seizure Duration By EEG (in seconds): 45 By Motor Observation (in seconds): 28 Medications Administration General Anesthetic: Etomidate (16) Muscle Relaxant: Succinylcholine (100) Ancillary Medications Analgesics: Torodol - Pre ECT Anti-emetics: Zofran - Pre ECT Miscillaneous Medications: Propofol Airway Management Airway Management: Bag Mask Ventilation Treatment Recommendations No Changes Recommended: No change Pt Tolerated Procedure w/o Issue: Yes
--- NOTE | 2020-07-10 10:38 | P.CONAN_ITS ---
[facility] Active Problems Active Problems: All Active Problems (Updated 06/29/20 @ 19:05 by Zaki Juan MD) Preoperative clearance (Acute) Skin-picking disorder (Acute) OCD (obsessive compulsive disorder) (Acute) Severe recurrent major depression w/psychotic features, mood-congruent (Acute) HTN (hypertension) (Acute) JAMES (obstructive sleep apnea) (Acute) GERD (gastroesophageal reflux disease) (Acute) Psychosis (Acute) Anxiety (Acute) Past Medical History Medical History Anxiety Depression GERD (gastroesophageal reflux disease) Hernia HTN (hypertension) OCD (obsessive compulsive disorder) JAMES (obstructive sleep apnea) Pulmonary emboli Severe recurrent major depression w/psychotic features, mood-congruent Skin-picking disorder TBI (traumatic brain injury) Social History Social History Household Members: Family Household Members Other:: Brother Housing: House Alcohol intake: former Smoking Status: Current every day smoker Tobacco Type: Cigarette Packs Per Day: 1 Cigarettes Per Day: 20.0 Years Smoked: 18 Second Hand Smoke Exposure: No Substance Use Type: Unknown service: No Sexual orientation: Straight/Heterosexual Meds Allergies Allergy/AdvReac Type Severity Reaction Status Date / Time No Known Allergies Allergy Verified 06/17/20 20:38 [No Known Allergies*] Active Medications: Current Medications Generic Name Dose Route Start Last Admin Trade Name Freq PRN Reason Stop Dose Admin Acetaminophen 650 mg 06/19/20 15:34 Acetaminophen 325 Mg Tablet PO Q6H PRN Headache/Pain Mild Scale (1-3) Al Hydroxide/Mg Hydroxide 30 ml 06/19/20 15:34 Magnesium Hydrox/Alum Hydrox 30 Ml Oral.Susp PO Q6H PRN Heartburn/Nausea Aripiprazole 10 mg 07/08/20 21:00 07/09/20 20:55 Aripiprazole 10 Mg Tablet PO 10 mg BEDTIME FERNANDO Administration Clomipramine HCl 50 mg 07/03/20 21:00 07/09/20 20:55 Clomipramine Hcl 25 Mg Capsule PO 50 mg BEDTIME FERNANDO Administration Fluoxetine HCl 40 mg 07/04/20 09:00 07/09/20 08:40 Fluoxetine Hcl Oral Solution 20 Mg/5 Ml Solution PO 40 mg DAILY FERNANDO Administration Hydroxyzine HCl 25 mg 06/19/20 15:34 06/22/20 22:16 Hydroxyzine Hcl 25 Mg Tablet PO 25 mg BEDTIME PRN Administration Anxiety Lisinopril 5 mg 06/18/20 09:00 07/09/20 08:39 Lisinopril 5 Mg Tablet PO 5 mg DAILY FERNANDO Administration Protocol Lorazepam 1 mg 06/19/20 15:38 07/04/20 08:50 Lorazepam 1 Mg Tablet PO 1 mg Q6H PRN Administration Anxiety Magnesium Hydroxide 30 ml 06/19/20 15:34 Milk Of Magnesia 30 Ml Oral.Susp PO DAILY PRN Constipation Melatonin 3 mg 07/09/20 21:00 07/09/20 20:55 Melatonin 3 Mg Tablet PO 3 mg BEDTIME FERNANDO Administration Metoprolol Tartrate 25 mg 06/18/20 09:00 07/09/20 21:10 Metoprolol Tartrate 25 Mg Tablet PO 25 mg BID FERNANDO Administration Protocol Nicotine 21 mg 06/29/20 09:00 07/09/20 08:40 Nicotine 21 Mg Patch.Td24 TRANSDERMA 21 mg DAILY FERNANDO Administration Nicotine Polacrilex 2 mg 06/28/20 11:43 06/28/20 11:54 Nicotine Polacrilex 2 Mg Lozenge BUCCAL 2 mg Q2H PRN Administration Nicotine Cravings Omeprazole 20 mg 06/18/20 06:30 07/09/20 05:57 Omeprazole 20 Mg Capsule.Dr PO 20 mg DAILY@0630 FERNANDO Administration Trazodone HCl 100 mg 06/21/20 17:46 Trazodone Hcl 100 Mg Tablet PO BEDTIME PRN Insomnia Home Medications Medication Instructions Recorded Confirmed Last Taken Type apixaban [Eliquis] 1 tab PO BID 06/18/20 06/18/20 Unknown History lisinopril 1 tab PO DAILY 06/18/20 06/18/20 Unknown History metoprolol tartrate 1 tab PO BID 06/18/20 06/18/20 Unknown History omeprazole 1 cap PO DAILY 06/18/20 06/18/20 Unknown History paroxetine HCl 1 tab PO DAILY 06/19/20 Unknown History ziprasidone HCl 1 cap PO BID 06/19/20 Unknown History Exam Exam Date and Time: July 10, 2020 1038 Height,Weight and Vital Signs: Height 5 ft 9 in Weight 102.058 kg Last Vital Signs Temp 98.3 F 07/10/20 10:13 Pulse 93 05/05/21 10:13 Resp 17 07/10/20 10:13 BP 140/91 H 07/10/20 10:13 Pulse Ox 95 07/10/20 10:13 Pertinent Lab Results Pertinent Lab Results: Laboratory Tests 06/17/20 06/17/20 06/18/20 20:45 23:46 10:52 WBC 11.9 H RBC 5.36 Hgb 16.4 Hct 49.3 MCV 92.0 MCH 30.6 MCHC 33.3 RDW 13.5 Plt Count 286 MPV 9.2 L Immature Gran % (Auto) 0.3 Neut % (Auto) 74.3 H Lymph % (Auto) 15.[address] [place] % (Auto) 8.6 Eos % (Auto) 1.2 Baso % (Auto) 0.3 Lymph # (Auto) 1.8 [place] # (Auto) 1.0 Eos # (Auto) 0.1 Baso # (Auto) 0.0 Abs Immat Gran (auto) 0.03 Absolute Neuts (auto) 8.9 H Absolute Nucleated RBC 0.000 Nucleated RBC % (auto) 0.0 D-Dimer Sodium Potassium Chloride Carbon Dioxide Anion Gap BUN Creatinine Estim Creat Clear Calc Estimated GFR Random Glucose Estimat Average Glucose Hemoglobin A1c % Calcium Troponin I High Sens Triglycerides Cholesterol LDL Cholesterol, Calc HDL Cholesterol Vitamin B12 Folate TSH Free T4 Urine Opiates Screen Not Detected Ur Barbiturates Screen Not Detected Ur Phencyclidine Scrn Not Detected Ur Amphetamines Screen Not Detected U Benzodiazepines Scrn Not Detected Urine Cocaine Screen Not Detected U Marijuana (THC) Screen POSITIVE H COVID-19 ([facility]) Negative COVID-19 Clin Com See Note 06/18/20 06/18/20 06/20/20 10:52 Unknown 08:39 WBC RBC Hgb Hct MCV MCH MCHC RDW Plt Count MPV Immature Gran % (Auto) Neut % (Auto) Lymph % (Auto) [place] % (Auto) Eos % (Auto) Baso % (Auto) Lymph # (Auto) [place] # (Auto) Eos # (Auto) Baso # (Auto) Abs Immat Gran (auto) Absolute Neuts (auto) Absolute Nucleated RBC Nucleated RBC % (auto) D-Dimer 425 Sodium 139 Potassium 4.1 Chloride 107 Carbon Dioxide 22 Anion Gap 14 BUN 10 Creatinine 0.91 Estim Creat Clear Calc 114.3 Estimated GFR > 60 Random Glucose 102 Estimat Average Glucose 105 Hemoglobin A1c % 5.3 Calcium 9.2 Troponin I High Sens Triglycerides Cholesterol LDL Cholesterol, Calc HDL Cholesterol Vitamin B12 Folate TSH Free T4 Urine Opiates Screen Ur Barbiturates Screen Ur Phencyclidine Scrn Ur Amphetamines Screen U Benzodiazepines Scrn Urine Cocaine Screen U Marijuana (THC) Screen COVID-19 ([facility]) COVID-19 [employer] 06/20/20 06/20/20 06/29/20 08:39 08:39 11:57 WBC RBC Hgb Hct MCV MCH MCHC RDW Plt Count MPV Immature Gran % (Auto) Neut % (Auto) Lymph % (Auto) [place] % (Auto) Eos % (Auto) Baso % (Auto) Lymph # (Auto) [place] # (Auto) Eos # (Auto) Baso # (Auto) Abs Immat Gran (auto) Absolute Neuts (auto) Absolute Nucleated RBC Nucleated RBC % (auto) D-Dimer Sodium Potassium Chloride Carbon Dioxide Anion Gap BUN Creatinine Estim Creat Clear Calc Estimated GFR Random Glucose Estimat Average Glucose Hemoglobin A1c % Calcium Troponin I High Sens 4.1 Triglycerides 106 Cholesterol 213 LDL Cholesterol, Calc 150 HDL Cholesterol 42 Vitamin B12 246 Folate 9.9 TSH 0.72 Free T4 1.06 Urine Opiates Screen Ur Barbiturates Screen Ur Phencyclidine Scrn Ur Amphetamines Screen U Benzodiazepines Scrn Urine Cocaine Screen U Marijuana (THC) Screen COVID-19 ([facility]) COVID-19 [employer] Com Airway Mallampati Class: II TM Dist: >3cm Neck ROM: Full Assessment and Plan Assessment Anesthesia Assessment: Anesthesia Plan Discussed and Chart Reviewed Final Anesthetic Review NPO: Yes ASA Class: II Final Preanesthetic Review: No Changes in Pt Med Stat, Meds/Allgs Chart Reviewed and Consent Obtained/Reviewed Patient Risk: Low Procedure Risk: Low Assessment/Block/Sedation in SS: Assess/Block/Sedation-SS Anesthetic Plan Anesthetic Plan: GA Disposition: Standard PACU
[2020-07-10] MEDS: Metoprolol Tartrate 25 MG TABLET PO ×2 (11:48→21:08)
[2020-07-10] MEDS: FLUoxetine HCl Oral Solution 20 MG/5 ML SOLUTION 40 MG PO (11:49)
[2020-07-10] MEDS: Nicotine 21 MG PATCH.TD24 TRANSDERMA (11:49)
[2020-07-10] MEDS: lisinopriL 5 MG TABLET PO (11:49)
[2020-07-10] MEDS: Omeprazole 20 MG CAPSULE.DR PO (11:50)
[2020-07-10] MEDS: Melatonin 3 MG TABLET PO (21:06)
[2020-07-10] MEDS: clomiPRAMINE HCl 25 MG CAPSULE 50 MG PO (21:06)
[2020-07-10] MEDS: ARIPiprazole 10 MG TABLET PO (21:06)
--- NOTE | 2020-07-10 21:23 | HO.PSYCHPN ---
Subjective Subjective Date of Service: 07/10/20 Reason For Visit: Schizophrenia Subjective Notes: Conditional Voluntary Interim History: Patient with improved mood tolerating ECT Medication Compliance: Yes Mental Status Exam Mental Status Exam Patient Appearance: Appropriate Patient Orientation: Person and Place Level of Consciousness: Awake Patient Behavior: Cooperative Behavior Comments: Still picking but less active improving behavior Mood Description: Appropriate and Apprehensive Affect Description: Constricted, Depressed (Improved) and Apprehensive Patient Cognition Impaired: No Ability to Follow Directions: Good Speech Pattern: Clear Memory Description: Intact Hallucinations: None Delusions: Not Present Thought Process: Distracted and Goal Oriented Thought Content: positive for Goal Oriented, positive for Poverty of Content, negative for Suicidal Ideation and negative for Homicidal Ideation Depressive Symptoms: Difficulty Sleeping, Sleeping More Than Usual, Feelings of Worthlessness and Hopelessness Abnormal Motor Activity Signs and Symptoms: Agitation Judgement: Fair Judgement and Insight: Improving judgment states feels like he is improving Diagnostics Vital Signs (24Hr): Vital Signs - 24 hr 07/10/20 06:00 07/10/20 06:07 07/10/20 10:13 Temperature 96.5 F L 96.5 F L 98.3 F Pulse Rate 63 95 93 Respiratory Rate 18 18 17 Blood Pressure 130/78 130/78 140/91 H Pulse Oximetry 95 96 95 07/10/20 10:53 07/10/20 10:58 07/10/20 11:03 Temperature 98.2 F Pulse Rate 100 107 H 98 Respiratory Rate 16 20 20 Blood Pressure 156/97 H 160/97 H 161/109 H Pulse Oximetry 165 H 93 96 07/10/20 11:08 07/10/20 11:23 07/10/20 11:48 Temperature 98.2 F Pulse Rate 102 H 96 93 Respiratory Rate 17 18 Blood Pressure 142/104 H 150/99 H 141/86 H Pulse Oximetry 96 96 07/10/20 11:49 07/10/20 12:05 07/10/20 21:08 Temperature 97.8 F Pulse Rate 93 93 91 Respiratory Rate Blood Pressure 141/86 H 141/86 H 125/63 Pulse Oximetry 93 07/10/20 21:09 Temperature 98.0 F Pulse Rate Respiratory Rate Blood Pressure Pulse Oximetry Body Mass Index 33.2 Labs Results: 06/18/20 10:52 06/18/20 10:52 Medications Medications Current Medications Generic Name Dose Route Start Last Admin Trade Name Freq PRN Reason Stop Dose Admin Acetaminophen 650 mg 06/19/20 15:34 Acetaminophen 325 Mg Tablet PO Q6H PRN Headache/Pain Mild Scale (1-3) Al Hydroxide/Mg Hydroxide 30 ml 06/19/20 15:34 Magnesium Hydrox/Alum Hydrox 30 Ml Oral.Susp PO Q6H PRN Heartburn/Nausea Aripiprazole 10 mg 07/08/20 21:00 07/10/20 21:06 Aripiprazole 10 Mg Tablet PO 10 mg BEDTIME FERNANDO Administration Clomipramine HCl 50 mg 07/03/20 21:00 07/10/20 21:06 Clomipramine Hcl 25 Mg Capsule PO 50 mg BEDTIME FERNANDO Administration Fluoxetine HCl 40 mg 07/04/20 09:00 07/10/20 11:49 Fluoxetine Hcl Oral Solution 20 Mg/5 Ml Solution PO 40 mg DAILY FERNANDO Administration Hydroxyzine HCl 25 mg 06/19/20 15:34 06/22/20 22:16 Hydroxyzine Hcl 25 Mg Tablet PO 25 mg BEDTIME PRN Administration Anxiety Lisinopril 5 mg 06/18/20 09:00 07/10/20 11:49 Lisinopril 5 Mg Tablet PO 5 mg DAILY FERNANDO Administration Protocol Lorazepam 1 mg 06/19/20 15:38 07/04/20 08:50 Lorazepam 1 Mg Tablet PO 1 mg Q6H PRN Administration Anxiety Magnesium Hydroxide 30 ml 06/19/20 15:34 Milk Of Magnesia 30 Ml Oral.Susp PO DAILY PRN Constipation Melatonin 3 mg 07/09/20 21:00 07/10/20 21:06 Melatonin 3 Mg Tablet PO 3 mg BEDTIME FERNANDO Administration Metoprolol Tartrate 25 mg 06/18/20 09:00 07/10/20 21:08 Metoprolol Tartrate 25 Mg Tablet PO 25 mg BID FERNANDO Administration Protocol Nicotine 21 mg 06/29/20 09:00 07/10/20 11:49 Nicotine 21 Mg Patch.Td24 TRANSDERMA 21 mg DAILY FERNANDO Administration Nicotine Polacrilex 2 mg 06/28/20 11:43 06/28/20 11:54 Nicotine Polacrilex 2 Mg Lozenge BUCCAL 2 mg Q2H PRN Administration Nicotine Cravings Omeprazole 20 mg 06/18/20 06:30 07/10/20 11:50 Omeprazole 20 Mg Capsule.Dr PO 20 mg DAILY@0630 FERNANDO Administration Trazodone HCl 100 mg 06/21/20 17:46 Trazodone Hcl 100 Mg Tablet PO BEDTIME PRN Insomnia Allergies Allergies Allergy/AdvReac Type Severity Reaction Status Date / Time No Known Allergies Allergy Verified 06/17/20 20:38 [No Known Allergies*] Assessment & Plan Assessment & Plan (1) Severe recurrent major depression w/psychotic features, mood-congruent: Status: Acute Code(s): F33.3 - Major depressive disorder, recurrent, severe with psychotic symptoms Assessment and Plan: F/P DX, Assessment and Plan: (1) Severe recurrent major depression w/psychotic features, mood-congruent: -continue ECT Continue ECT and Abilify. Olanzapine discontinue patient showing some early improvement noted See ECT note (2) OCD (obsessive compulsive disorder): Assessment and Plan: cont prozac skin picking continues denies command or intentionality. Improving tolerating Anafranil Greater than 50% of the session was spent on counseling and/or coordination of care Greater than 50% of the session was spent on counseling and/or coordination of care Reason for contiued inpatient stay Substantial Risk for: rapid decompensation
[2020-07-11 07:10] VITALS: BP 100/74; PULSE 94; RESP 16; TEMP 37.1; O2SAT 93
[2020-07-11] MEDS: FLUoxetine HCl Oral Solution 20 MG/5 ML SOLUTION 40 MG PO (08:51)
[2020-07-11] MEDS: Nicotine 21 MG PATCH.TD24 TRANSDERMA (08:51)
[2020-07-11] MEDS: Omeprazole 20 MG CAPSULE.DR PO (08:52)
[2020-07-11] MEDS: Metoprolol Tartrate 25 MG TABLET PO ×2 (08:52→20:42)
[2020-07-11] MEDS: lisinopriL 5 MG TABLET PO (08:52)
[2020-07-11 20:42] VITALS: BP 129/79; PULSE 100
[2020-07-11] MEDS: ARIPiprazole 10 MG TABLET PO (20:42)
[2020-07-11] MEDS: Melatonin 3 MG TABLET PO (20:42)
[2020-07-11] MEDS: clomiPRAMINE HCl 25 MG CAPSULE 50 MG PO (20:42)
[2020-07-11 20:45] VITALS: TEMP 36.7
--- NOTE | 2020-07-11 21:47 | HO.PSYCHPN ---
Subjective Subjective Date of Service: 07/11/20 Reason For Visit: Schizophrenia Subjective Notes: Conditional Voluntary Interim History: Patient with cabrera affect future oriented skin picking markedly less. Patient agreeable to outpatient treatment Medication Compliance: Yes Side effects from medications: No Mental Status Exam Mental Status Exam Patient Appearance: Appropriate Patient Orientation: Person and Place Level of Consciousness: Awake Patient Behavior: Cooperative Behavior Comments: Still picking but less active improving behavior Mood Description: Appropriate and Apprehensive Affect Description: Appropriate and Apprehensive Patient Cognition Impaired: No Ability to Follow Directions: Good Speech Pattern: Clear Memory Description: Intact Hallucinations: None Thought Process: Distracted and Goal Oriented Thought Content: positive for Goal Oriented, negative for Suicidal Ideation and negative for Homicidal Ideation Depressive Symptoms: Sleeping More Than Usual, Feelings of Worthlessness and Hopelessness Judgement: Fair Judgement and Insight: Improving judgment states feels like he is improving states he is feeling safe for discharge agreeable to applying for disability much improved insight Diagnostics Vital Signs (24Hr): Vital Signs - 24 hr 07/11/20 07:10 07/11/20 20:42 07/11/20 20:45 Temperature 98.8 F 98.1 F Pulse Rate 94 100 Respiratory Rate 16 Blood Pressure 100/74 129/79 Pulse Oximetry 93 Body Mass Index 33.2 Labs Results: 06/18/20 10:52 06/18/20 10:52 Medications Medications Current Medications Generic Name Dose Route Start Last Admin Trade Name Freq PRN Reason Stop Dose Admin Acetaminophen 650 mg 06/19/20 15:34 Acetaminophen 325 Mg Tablet PO Q6H PRN Headache/Pain Mild Scale (1-3) Al Hydroxide/Mg Hydroxide 30 ml 06/19/20 15:34 Magnesium Hydrox/Alum Hydrox 30 Ml Oral.Susp PO Q6H PRN Heartburn/Nausea Aripiprazole 10 mg 07/08/20 21:00 07/11/20 20:42 Aripiprazole 10 Mg Tablet PO 10 mg BEDTIME FERNANDO Administration Clomipramine HCl 50 mg 07/03/20 21:00 07/11/20 20:42 Clomipramine Hcl 25 Mg Capsule PO 50 mg BEDTIME FERNANDO Administration Fluoxetine HCl 40 mg 07/04/20 09:00 07/11/20 08:51 Fluoxetine Hcl Oral Solution 20 Mg/5 Ml Solution PO 40 mg DAILY FERNANDO Administration Hydroxyzine HCl 25 mg 06/19/20 15:34 06/22/20 22:16 Hydroxyzine Hcl 25 Mg Tablet PO 25 mg BEDTIME PRN Administration Anxiety Lisinopril 5 mg 06/18/20 09:00 07/11/20 08:52 Lisinopril 5 Mg Tablet PO 5 mg DAILY FERNANDO Administration Protocol Lorazepam 1 mg 06/19/20 15:38 07/04/20 08:50 Lorazepam 1 Mg Tablet PO 1 mg Q6H PRN Administration Anxiety Magnesium Hydroxide 30 ml 06/19/20 15:34 Milk Of Magnesia 30 Ml Oral.Susp PO DAILY PRN Constipation Melatonin 3 mg 07/09/20 21:00 07/11/20 20:42 Melatonin 3 Mg Tablet PO 3 mg BEDTIME FERNANDO Administration Metoprolol Tartrate 25 mg 06/18/20 09:00 07/11/20 20:42 Metoprolol Tartrate 25 Mg Tablet PO 25 mg BID FERNANDO Administration Protocol Nicotine 21 mg 06/29/20 09:00 07/11/20 08:51 Nicotine 21 Mg Patch.Td24 TRANSDERMA 21 mg DAILY FERNANDO Administration Nicotine Polacrilex 2 mg 06/28/20 11:43 06/28/20 11:54 Nicotine Polacrilex 2 Mg Lozenge BUCCAL 2 mg Q2H PRN Administration Nicotine Cravings Omeprazole 20 mg 06/18/20 06:30 07/11/20 08:52 Omeprazole 20 Mg Capsule. PO 20 mg DAILY@0630 FERNANDO Administration Trazodone HCl 100 mg 06/21/20 17:46 Trazodone Hcl 100 Mg Tablet PO BEDTIME PRN Insomnia Allergies Allergies Allergy/AdvReac Type Severity Reaction Status Date / Time No Known Allergies Allergy Verified 06/17/20 20:38 [No Known Allergies*] Assessment & Plan Assessment & Plan (1) Severe recurrent major depression w/psychotic features, mood-congruent: Status: Acute Code(s): F33.3 - Major depressive disorder, recurrent, severe with psychotic symptoms Assessment and Plan: F/P DX, Assessment and Plan: (1) Severe recurrent major depression w/psychotic features, mood-congruent: -continue ECT Continue ECT and Abilify. Patient seems safe for discharge tomorrow encourage outpatient treatment See ECT note (2) OCD (obsessive compulsive disorder): Assessment and Plan: cont prozac skin picking continues denies command or intentionality. Improving tolerating Anafranil Greater than 50% of the session was spent on counseling and/or coordination of care Greater than 50% of the session was spent on counseling and/or coordination of care Reason for contiued inpatient stay Substantial Risk for: rapid decompensation
[2020-07-12] VITALS (11 sets, daily range): BP systolic 121–157; BP diastolic 73–104; PULSE 79–103; RESP 16–24; TEMP 36.2–36.6; O2SAT 91–96
--- NOTE | 2020-07-12 07:50 | MHC.SHP ---
Pre-Procedural Eval Section A The patient is an INPATIENT: Yes Changes since office visit: Yes Patient answered all questions; No Cold of Flu in the past 2 weeks, No New Medical Problems and No Changes in Medication The History & Physical has been completed within 30 days and I have reviewed it.: Yes Section B Chief Complaint: Schizophrenia Allergies: Allergies Allergy/AdvReac Type Severity Reaction Status Date / Time No Known Allergies Allergy Verified 06/17/20 20:38 [No Known Allergies*] Plan I have reviewed the history and physical and performed a pertinent physical examination on my patient. No changes have occurred unless specified.
--- NOTE | 2020-07-12 08:48 | P.CONAN_ITS ---
HPI - Anesthesia Eval Consult details Narrative: 49 year old male patient for ECT PMFSH Active Problems Active Problems: All Active Problems (Updated 06/29/20 @ 19:05 by Zaki Juan MD) Preoperative clearance (Acute) Skin-picking disorder (Acute) OCD (obsessive compulsive disorder) (Acute) Severe recurrent major depression w/psychotic features, mood-congruent (Acute) HTN (hypertension) (Acute) JAMES (obstructive sleep apnea) (Acute) GERD (gastroesophageal reflux disease) (Acute) Psychosis (Acute) Anxiety (Acute) Past Medical History Medical History Anxiety Depression GERD (gastroesophageal reflux disease) Hernia HTN (hypertension) OCD (obsessive compulsive disorder) JAMES (obstructive sleep apnea) Pulmonary emboli Severe recurrent major depression w/psychotic features, mood-congruent Skin-picking disorder TBI (traumatic brain injury) Social History Social History Household Members: Family Household Members Other:: Brother Housing: House Alcohol intake: former Smoking Status: Current every day smoker Tobacco Type: Cigarette Packs Per Day: 1 Cigarettes Per Day: 20.0 Years Smoked: 18 Second Hand Smoke Exposure: No Substance Use Type: Unknown service: No Sexual orientation: Straight/Heterosexual Meds Allergies Allergy/AdvReac Type Severity Reaction Status Date / Time No Known Allergies Allergy Verified 06/17/20 20:38 [No Known Allergies*] Active Medications: Current Medications Generic Name Dose Route Start Last Admin Trade Name Freq PRN Reason Stop Dose Admin Acetaminophen 650 mg 06/19/20 15:34 Acetaminophen 325 Mg Tablet PO Q6H PRN Headache/Pain Mild Scale (1-3) Al Hydroxide/Mg Hydroxide 30 ml 06/19/20 15:34 Magnesium Hydrox/Alum Hydrox 30 Ml Oral.Susp PO Q6H PRN Heartburn/Nausea Aripiprazole 10 mg 07/08/20 21:00 07/11/20 20:42 Aripiprazole 10 Mg Tablet PO 10 mg BEDTIME FERNANDO Administration Clomipramine HCl 50 mg 07/03/20 21:00 07/11/20 20:42 Clomipramine Hcl 25 Mg Capsule PO 50 mg BEDTIME FERNANDO Administration Fluoxetine HCl 40 mg 07/04/20 09:00 07/11/20 08:51 Fluoxetine Hcl Oral Solution 20 Mg/5 Ml Solution PO 40 mg DAILY FERNANDO Administration Hydroxyzine HCl 25 mg 06/19/20 15:34 06/22/20 22:16 Hydroxyzine Hcl 25 Mg Tablet PO 25 mg BEDTIME PRN Administration Anxiety Lactated Ringer's 1,000 mls @ 50 mls/hr 07/12/20 09:00 Lr IV .Q20H FERNANDO Lisinopril 5 mg 06/18/20 09:00 07/11/20 08:52 Lisinopril 5 Mg Tablet PO 5 mg DAILY FERNANDO Administration Protocol Lorazepam 1 mg 06/19/20 15:38 07/04/20 08:50 Lorazepam 1 Mg Tablet PO 1 mg Q6H PRN Administration Anxiety Magnesium Hydroxide 30 ml 06/19/20 15:34 Milk Of Magnesia 30 Ml Oral.Susp PO DAILY PRN Constipation Melatonin 3 mg 07/09/20 21:00 07/11/20 20:42 Melatonin 3 Mg Tablet PO 3 mg BEDTIME FERNANDO Administration Metoprolol Tartrate 25 mg 06/18/20 09:00 07/11/20 20:42 Metoprolol Tartrate 25 Mg Tablet PO 25 mg BID FERNANDO Administration Protocol Nicotine 21 mg 06/29/20 09:00 07/11/20 08:51 Nicotine 21 Mg Patch.Td24 TRANSDERMA 21 mg DAILY FERNANDO Administration Nicotine Polacrilex 2 mg 06/28/20 11:43 06/28/20 11:54 Nicotine Polacrilex 2 Mg Lozenge BUCCAL 2 mg Q2H PRN Administration Nicotine Cravings Omeprazole 20 mg 06/18/20 06:30 07/11/20 08:52 Omeprazole 20 Mg Capsule. PO 20 mg DAILY@0630 FERNANDO Administration Trazodone HCl 100 mg 06/21/20 17:46 Trazodone Hcl 100 Mg Tablet PO BEDTIME PRN Insomnia Home Medications Medication Instructions Recorded Confirmed Last Taken Type apixaban [Eliquis] 1 tab PO BID 06/18/20 06/18/20 Unknown History paroxetine HCl 1 tab PO DAILY 06/19/20 Unknown History ziprasidone HCl 1 cap PO BID 06/19/20 Unknown History Exam Exam Date and Time: July 12, 2020 0848 Height,Weight and Vital Signs: Height 5 ft 9 in Weight 102.058 kg Vital Signs Temp Pulse Resp BP Pulse Ox 98.8 F 114 H 18 146/92 H 96 06/17/20 20:39 06/17/20 20:39 06/17/20 20:39 06/17/20 20:39 06/17/20 20:39 Pertinent Lab Results Pertinent Lab Results: Laboratory Tests 06/17/20 06/17/20 06/18/20 20:45 23:46 10:52 WBC 11.9 H RBC 5.36 Hgb 16.4 Hct 49.3 MCV 92.0 MCH 30.6 MCHC 33.3 RDW 13.5 Plt Count 286 MPV 9.2 L Immature Gran % (Auto) 0.3 Neut % (Auto) 74.3 H Lymph % (Auto) 15.3 L [place] % (Auto) 8.6 Eos % (Auto) 1.2 Baso % (Auto) 0.3 Lymph # (Auto) 1.8 [place] # (Auto) 1.0 Eos # (Auto) 0.1 Baso # (Auto) 0.0 Abs Immat Gran (auto) 0.03 Absolute Neuts (auto) 8.9 H Absolute Nucleated RBC 0.000 Nucleated RBC % (auto) 0.0 D-Dimer Sodium Potassium Chloride Carbon Dioxide Anion Gap BUN Creatinine Estim Creat Clear Calc Estimated GFR Random Glucose Estimat Average Glucose Hemoglobin A1c % Calcium Troponin I High Sens Triglycerides Cholesterol LDL Cholesterol, Calc HDL Cholesterol Vitamin B12 Folate TSH Free T4 Urine Opiates Screen Not Detected Ur Barbiturates Screen Not Detected Ur Phencyclidine Scrn Not Detected Ur Amphetamines Screen Not Detected U Benzodiazepines Scrn Not Detected Urine Cocaine Screen Not Detected U Marijuana (THC) Screen POSITIVE H COVID-19 ([facility]) Negative COVID-19 Clin Com See Note 06/18/20 06/18/20 06/20/20 10:52 Unknown 08:39 WBC RBC Hgb Hct MCV MCH MCHC RDW Plt Count MPV Immature Gran % (Auto) Neut % (Auto) Lymph % (Auto) [place] % (Auto) Eos % (Auto) Baso % (Auto) Lymph # (Auto) [place] # (Auto) Eos # (Auto) Baso # (Auto) Abs Immat Gran (auto) Absolute Neuts (auto) Absolute Nucleated RBC Nucleated RBC % (auto) D-Dimer 425 Sodium 139 Potassium 4.1 Chloride 107 Carbon Dioxide 22 Anion Gap 14 BUN 10 Creatinine 0.91 Estim Creat Clear Calc 114.3 Estimated GFR > 60 Random Glucose 102 Estimat Average Glucose 105 Hemoglobin A1c % 5.3 Calcium 9.2 Troponin I High Sens Triglycerides Cholesterol LDL Cholesterol, Calc HDL Cholesterol Vitamin B12 Folate TSH Free T4 Urine Opiates Screen Ur Barbiturates Screen Ur Phencyclidine Scrn Ur Amphetamines Screen U Benzodiazepines Scrn Urine Cocaine Screen U Marijuana (THC) Screen COVID-19 ([facility]) COVID-19 [facility] Com 06/20/20 06/20/20 06/29/20 08:39 08:39 11:57 WBC RBC Hgb Hct MCV MCH MCHC RDW Plt Count MPV Immature Gran % (Auto) Neut % (Auto) Lymph % (Auto) [place] % (Auto) Eos % (Auto) Baso % (Auto) Lymph # (Auto) [place] # (Auto) Eos # (Auto) Baso # (Auto) Abs Immat Gran (auto) Absolute Neuts (auto) Absolute Nucleated RBC Nucleated RBC % (auto) D-Dimer Sodium Potassium Chloride Carbon Dioxide Anion Gap BUN Creatinine Estim Creat Clear Calc Estimated GFR Random Glucose Estimat Average Glucose Hemoglobin A1c % Calcium Troponin I High Sens 4.1 Triglycerides 106 Cholesterol 213 LDL Cholesterol, Calc 150 HDL Cholesterol 42 Vitamin B12 246 Folate 9.9 TSH 0.72 Free T4 1.06 Urine Opiates Screen Ur Barbiturates Screen Ur Phencyclidine Scrn Ur Amphetamines Screen U Benzodiazepines Scrn Urine Cocaine Screen U Marijuana (THC) Screen COVID-19 ([facility]) COVID-19 Clin Com Airway Mallampati Class: III (Overbite) TM Dist: >3cm Neck ROM: Full Partial: Upper Heart: RRR Lungs: CTAB Assessment and Plan Assessment Anesthesia Assessment: Anesthesia Plan Discussed and Chart Reviewed Final Anesthetic Review NPO: Yes ASA Class: III Final Preanesthetic Review: No Changes in Pt Med Stat, Meds/Allgs Chart Reviewed, Consent Obtained/Reviewed and Anes Risks/Benef Reviewed Patient Risk: Intermediate Procedure Risk: Intermediate Anesthetic Plan Anesthetic Plan: GA Disposition: Inp. Admit - Standard Bed
[2020-07-12] MEDS: Nicotine 21 MG PATCH.TD24 TRANSDERMA (09:45)
[2020-07-12] MEDS: Metoprolol Tartrate 25 MG TABLET PO (09:46)
[2020-07-12] MEDS: Omeprazole 20 MG CAPSULE.DR PO (09:46)
[2020-07-12] MEDS: FLUoxetine HCl Oral Solution 20 MG/5 ML SOLUTION 40 MG PO (09:46)
[2020-07-12] MEDS: lisinopriL 5 MG TABLET PO (09:47)
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
== END 2020-07-12 14:15 | disposition home or self-care (01) | DRG 751 ==
LOC: HO.ED 22:58 → HO.PM5 06-19 15:03
PROVIDERS: Clinical Nurse Specialist Psychiatric/Mental Health, Adult; Physician Assistant; Physician Assistant Medical; Psychiatry & Neurology Psychiatry; Admitting Provider Psychiatry & Neurology Psychiatry; Emergency Provider Student in an Organized Health Care Education/Training Program; PCP Internal Medicine; Visit Provider Psychiatry & Neurology Psychiatry
PROC: GZB4ZZZ Other Electroconvulsive Therapy (ICD-10-PCS; CPT 90870; principal; 2020-07-01 16:00)
PROC: (CPT 90870; principal; 2020-07-05 07:00)
DX: F33.3 Major depressive disorder, recurrent, severe with psychotic symptoms (principal); F17.210 Nicotine dependence, cigarettes, uncomplicated; F42.9 Obsessive-compulsive disorder, unspecified; F42.4 Excoriation (skin-picking) disorder; K21.9 Gastro-esophageal reflux disease without esophagitis; Z71.6 Tobacco abuse counseling; Z20.822 Contact with and (suspected) exposure to COVID-19; Z87.820 Personal history of traumatic brain injury; Z79.01 Long term (current) use of anticoagulants; Z79.899 Other long term (current) drug therapy
CPT/HCPCS: 36415; 80048; 80061; 80307; 82607; 82746; 83036; 84439; 84443; 84484; 85025; 85379; 87635; 90870; 93005; 94660; 99285; J0330; J1885; J2250; J2405

== ENCOUNTER 2020-07-19 06:06 | Day surgery (SDC) | payer OTHER, SELFPAY ==
[2020-07-19 06:38] VITALS: BP 136/88; PULSE 70; RESP 18; TEMP 36.3; O2SAT 96; BMI 34.0
--- NOTE | 2020-07-19 07:57 | MHC.SHP ---
Pre-Procedural Eval Section A The patient is an INPATIENT: No Changes since office visit: Yes Patient answered all questions; No Cold of Flu in the past 2 weeks, No New Medical Problems and No Changes in Medication The History & Physical has been completed within 30 days and I have reviewed it.: Yes Section B Chief Complaint: depression Allergies: Allergies Allergy/AdvReac Type Severity Reaction Status Date / Time No Known Allergies Allergy Verified 06/17/20 20:38 [No Known Allergies*] Plan I have reviewed the history and physical and performed a pertinent physical examination on my patient. No changes have occurred unless specified.
[2020-07-19 08:12] VITALS: BP 169/89; PULSE 63; RESP 12; TEMP 37.1; O2SAT 98
[2020-07-19 08:17] VITALS: BP 141/91; PULSE 70; RESP 16; O2SAT 97
[2020-07-19 08:22] VITALS: BP 152/92; PULSE 71; RESP 18; O2SAT 98
[2020-07-19 08:27] VITALS: BP 154/87; PULSE 74; RESP 20; O2SAT 98
[2020-07-19 08:42] VITALS: BP 148/85; PULSE 82; RESP 18; TEMP 37; O2SAT 96
--- NOTE | 2020-07-19 08:46 | HO.ECTPROC ---
ECT Procedure Note Diagnosis/Treatment Date of Service: 07/19/20 Diagnosis: Major Depressive Disorder Previous ECT Date: 07/10/20 Current Treatment Number: 6 Treatment: Series (6) Interval Clinical Notes: pt much improved full affect ECT Settings Device: THYMATRON DGx Electrode Placement: Bifrontal Program/Pulse Width: 0.50 Energy Percent: 100 Seizure Duration By EEG (in seconds): 58 Medications Administration General Anesthetic: Etomidate (16) Muscle Relaxant: Succinylcholine (140 mg) Ancillary Medications Analgesics: Torodol - Pre ECT Anti-emetics: Zofran - Pre ECT Airway Management Airway Management: Bag Mask Ventilation Treatment Recommendations No Changes Recommended: No change Electrode Placement: Bifrontal Notes: succ was inc 140 mg did well with this and nasal trumpet f/u tx 1 week Pt Tolerated Procedure w/o Issue: Yes
== END 2020-07-19 09:41 | disposition home or self-care (01) ==
PROVIDERS: PCP Internal Medicine; Visit Provider Psychiatry & Neurology Psychiatry
PROC: (CPT 90870; principal; 2020-07-19 08:30)
DX: F33.3 Major depressive disorder, recurrent, severe with psychotic symptoms (principal); F42.9 Obsessive-compulsive disorder, unspecified; F17.210 Nicotine dependence, cigarettes, uncomplicated; G47.33 Obstructive sleep apnea (adult) (pediatric); I10 Essential (primary) hypertension; Z79.899 Other long term (current) drug therapy; Z79.02 Long term (current) use of antithrombotics/antiplatelets; Z87.820 Personal history of traumatic brain injury
CPT/HCPCS: 90870; J0330; J1885; J2405

== ENCOUNTER 2020-07-26 08:03 | Day surgery (SDC) | payer OTHER, SELFPAY ==
[2020-07-26] VITALS (7 sets, daily range): BP systolic 133–168; BP diastolic 88–110; PULSE 92–102; RESP 16–17; TEMP 36.4–36.7; O2SAT 94–97; BMI 31.7
--- NOTE | 2020-07-26 09:53 | P.CONAN_ITS ---
[facility] [place] Active Problems Active Problems: All Active Problems (Updated 07/20/20 @ 00:02 by Alejandro Wallace) Skin-picking disorder (Acute) OCD (obsessive compulsive disorder) (Acute) HTN (hypertension) (Acute) JAMES (obstructive sleep apnea) (Acute) GERD (gastroesophageal reflux disease) (Acute) Anxiety (Acute) Past Medical History Medical History Anxiety Depression GERD (gastroesophageal reflux disease) Hernia HTN (hypertension) OCD (obsessive compulsive disorder) JAMES (obstructive sleep apnea) Psychosis Pulmonary emboli Severe recurrent major depression w/psychotic features, mood-congruent Skin-picking disorder TBI (traumatic brain injury) Social History Social History Household Members: Family Household Members Other:: Brother Housing: House Alcohol intake: former Smoking Status: Current every day smoker Tobacco Type: Cigarette Packs Per Day: 1 Cigarettes Per Day: 20.0 Years Smoked: 18 Second Hand Smoke Exposure: No Use of substances other than those prescribed or required for medical reasons: No Substance Use Type: Unknown Are you DNR?: No Advance Directives: No Advance Directives Information Provided: Yes Recently lost weight without trying: No service: No Sexual orientation: Straight/Heterosexual Meds Allergies Allergy/AdvReac Type Severity Reaction Status Date / Time No Known Allergies Allergy Verified 06/17/20 20:38 [No Known Allergies*] Exam Exam Date and Time: July 26, 2020 0953 Height,Weight and Vital Signs: Height 5 ft 9 in Weight 97.522 kg Last Vital Signs Temp 97.6 F 07/26/20 08:25 Pulse 92 07/26/20 08:25 Resp 16 07/26/20 08:25 BP 135/92 H 07/26/20 08:25 Pulse Ox 94 07/26/20 08:25 Airway Mallampati Class: III TM Dist: >3cm Neck ROM: Full Assessment and Plan Assessment Anesthesia Assessment: Anesthesia Plan Discussed and Chart Reviewed Final Anesthetic Review NPO: Yes ASA Class: II Final Preanesthetic Review: No Changes in Pt Med Stat, Meds/Allgs Chart Reviewed, Consent Obtained/Reviewed and Anes Risks/Benef Reviewed Patient Risk: Low Procedure Risk: Low Assessment/Block/Sedation in SS: Assess/Block/Sedation-SS Anesthetic Plan Anesthetic Plan: GA Disposition: Standard PACU
--- NOTE | 2020-07-26 09:55 | MHC.SHP ---
Pre-Procedural Eval Section A The patient is an INPATIENT: No Changes since office visit: Yes Patient answered all questions; No Cold of Flu in the past 2 weeks, No New Medical Problems and No Changes in Medication The History & Physical has been completed within 30 days and I have reviewed it.: Yes Section B Chief Complaint: major depressive disorder Allergies: Allergies Allergy/AdvReac Type Severity Reaction Status Date / Time No Known Allergies Allergy Verified 06/17/20 20:38 [No Known Allergies*] Plan I have reviewed the history and physical and performed a pertinent physical examination on my patient. No changes have occurred unless specified.
--- NOTE | 2020-07-26 10:06 | HO.ECTPROC ---
ECT Procedure Note Diagnosis/Treatment Date of Service: 07/26/20 Diagnosis: Major Depressive Disorder Current Treatment Number: 7 Treatment: Series Interval Clinical Notes: Patient has improved less religiously preoccupied skin picking markedly improved mood stable ECT Settings Device: THYMATRON DGx Seizure Duration By EEG (in seconds): 49 Medications Administration General Anesthetic: Etomidate (20) Muscle Relaxant: Succinylcholine (140 mg) Ancillary Medications Analgesics: Torodol - Pre ECT Anti-emetics: Zofran - Pre ECT Miscillaneous Medications: Propofol Airway Management Airway Management: Bag Mask Ventilation Treatment Recommendations No Changes Recommended: No change
== END 2020-07-26 12:02 | disposition home or self-care (01) ==
PROVIDERS: PCP Internal Medicine; Visit Provider Psychiatry & Neurology Psychiatry
PROC: (CPT 90870; principal; 2020-07-26 15:00)
DX: F33.3 Major depressive disorder, recurrent, severe with psychotic symptoms (principal); F42.9 Obsessive-compulsive disorder, unspecified; F42.4 Excoriation (skin-picking) disorder; G47.33 Obstructive sleep apnea (adult) (pediatric); Z87.820 Personal history of traumatic brain injury; I10 Essential (primary) hypertension; F17.210 Nicotine dependence, cigarettes, uncomplicated; Z79.899 Other long term (current) drug therapy
CPT/HCPCS: 90870; J0330; J1885; J2405

== ENCOUNTER 2020-08-02 06:06 | Day surgery (SDC) | payer OTHER, SELFPAY ==
[2020-08-02 07:09] VITALS: BP 133/87; PULSE 68; RESP 18; TEMP 36.9; O2SAT 94; BMI 34.0
--- NOTE | 2020-08-02 08:02 | P.CONAN_ITS ---
[facility] Active Problems Active Problems: All Active Problems (Updated 07/20/20 @ 00:02 by Background Simon broussard) Skin-picking disorder (Acute) OCD (obsessive compulsive disorder) (Acute) HTN (hypertension) (Acute) JAMES (obstructive sleep apnea) (Acute) GERD (gastroesophageal reflux disease) (Acute) Anxiety (Acute) Past Medical History Medical History Anxiety Depression GERD (gastroesophageal reflux disease) Hernia HTN (hypertension) OCD (obsessive compulsive disorder) JAMES (obstructive sleep apnea) Psychosis Pulmonary emboli Severe recurrent major depression w/psychotic features, mood-congruent Skin-picking disorder TBI (traumatic brain injury) Social History Social History Household Members: Family Household Members Other:: Brother Housing: House Do you presently have visiting nurse or other home services: No Alcohol intake: former Cigarette Packs Per Day: 1 Cigarettes Per Day: 20.0 Years Smoked: 18 Second Hand Smoke Exposure: No Use of substances other than those prescribed or required for medical reasons: No Substance Use Type: Unknown Are you DNR?: No Advance Directives: No Advance Directives Information Provided: Yes Recently lost weight without trying: No service: No Sexual orientation: Straight/Heterosexual Meds Allergies Allergy/AdvReac Type Severity Reaction Status Date / Time No Known Allergies Allergy Verified 06/17/20 20:38 [No Known Allergies*] Exam Exam Date and Time: August 02, 2020 0802 Height,Weight and Vital Signs: Height 5 ft 9 in Weight 230 lb Last Vital Signs Temp 98.4 F 08/02/20 07:09 Pulse 68 08/02/20 07:09 Resp 18 08/02/20 07:09 BP 133/87 08/02/20 07:09 Pulse Ox 94 08/02/20 07:09 Airway Mallampati Class: III TM Dist: >3cm Neck ROM: Full Partial: Upper Heart: RRR Lungs: NL Assessment and Plan Assessment Anesthesia Assessment: Anesthesia Plan Discussed and Chart Reviewed Final Anesthetic Review NPO: Yes ASA Class: III Final Preanesthetic Review: No Changes in Pt Med Stat, Meds/Allgs Chart Reviewed, Consent Obtained/Reviewed and Anes Risks/Benef Reviewed Patient Risk: Intermediate Procedure Risk: Low Anesthetic Plan Anesthetic Plan: GA Disposition: Standard PACU
--- NOTE | 2020-08-02 08:05 | MHC.SHP ---
Pre-Procedural Eval Section B Chief Complaint: depression Details of Present Illness: RECURRENT DEPRESSION OCD Relevant Family History (Specify if Yes): Yes Relevant Social History: None Present Medications: see Short Stay Collaborative assessment Medical History: Significant History (aurelia) History of Previous Operations: No relevant previous surgery (ect) Allergies: Allergies Allergy/AdvReac Type Severity Reaction Status Date / Time No Known Allergies Allergy Verified 06/17/20 20:38 [No Known Allergies*] Review of Systems Sugical H&P ROS: Negative: Cardiovascular, Respiratory and Neurological and Yes, Specify: Psychiatric (some anxiety much less picking) Exam Surgical H&P Exam: Normal: Heart and Normal: Lungs and Not Evaluated: Skin (residual picking ) Plan Diagnosis/Plan: Unchanged I have reviewed the history and physical and performed a pertinent physical examination on my patient. No changes have occurred unless specified.
--- NOTE | 2020-08-02 08:28 | HO.ECTPROC ---
ECT Procedure Note Diagnosis/Treatment Date of Service: 08/02/20 Diagnosis: Major Depressive Disorder Current Treatment Number: 8 Treatment: Series Interval Clinical Notes: pt feeling generally ok ECT Settings Device: THYMATRON DGx Electrode Placement: Bifrontal Program/Pulse Width: 0.50 Energy Percent: 100 Seizure Duration By EEG (in seconds): 51 Medications Administration General Anesthetic: Etomidate (20) Muscle Relaxant: Succinylcholine (140 mg) Ancillary Medications Analgesics: Torodol - Pre ECT Anti-emetics: Zofran - Pre ECT Miscillaneous Medications: Propofol Treatment Recommendations Notes: inc succ 160 mg
[2020-08-02 08:33] VITALS: BP 158/94; PULSE 76; RESP 20; TEMP 36.2; O2SAT 96
[2020-08-02 08:38] VITALS: BP 165/104; PULSE 86; RESP 20; O2SAT 98
[2020-08-02 08:43] VITALS: BP 155/97; PULSE 80; RESP 20; O2SAT 96
[2020-08-02 08:48] VITALS: BP 146/104; PULSE 78; RESP 20; O2SAT 96
[2020-08-02 09:03] VITALS: BP 146/87; PULSE 79; RESP 20; TEMP 36.2; O2SAT 98
== END 2020-08-02 10:07 | disposition home or self-care (01) ==
PROVIDERS: PCP Internal Medicine; Visit Provider Psychiatry & Neurology Psychiatry
PROC: (CPT 90870; principal; 2020-08-02 08:00)
DX: F33.3 Major depressive disorder, recurrent, severe with psychotic symptoms (principal); F42.9 Obsessive-compulsive disorder, unspecified; F42.4 Excoriation (skin-picking) disorder; Z87.820 Personal history of traumatic brain injury; G47.33 Obstructive sleep apnea (adult) (pediatric); I26.99 Other pulmonary embolism without acute cor pulmonale; I10 Essential (primary) hypertension; K21.9 Gastro-esophageal reflux disease without esophagitis; F17.210 Nicotine dependence, cigarettes, uncomplicated; Z79.899 Other long term (current) drug therapy
CPT/HCPCS: 90870; J0330; J1885; J2405

== ENCOUNTER 2020-08-09 06:10 | Day surgery (SDC) | payer OTHER, SELFPAY ==
[2020-08-09] VITALS (8 sets, daily range): BP systolic 110–167; BP diastolic 69–103; PULSE 67–80; RESP 16–19; TEMP 36.3–36.8; O2SAT 94–99; BMI 34.0
--- NOTE | 2020-08-09 07:57 | P.CONAN_ITS ---
[facility]LY [facility] Active Problems Active Problems: All Active Problems (Updated 08/06/20 @ 11:14 by Erickson Deng MD) Skin-picking disorder (Acute) OCD (obsessive compulsive disorder) (Acute) HTN (hypertension) (Acute) JAMES (obstructive sleep apnea) (Acute) GERD (gastroesophageal reflux disease) (Acute) Anxiety (Acute) Past Medical History Medical History Anxiety Depression GERD (gastroesophageal reflux disease) Hernia HTN (hypertension) OCD (obsessive compulsive disorder) JAMES (obstructive sleep apnea) Psychosis Pulmonary emboli Severe recurrent major depression w/psychotic features, mood-congruent Skin-picking disorder TBI (traumatic brain injury) Social History Social History Household Members: Family Household Members Other:: Brother Housing: House Do you presently have visiting nurse or other home services: No Alcohol intake: former Cigarette Packs Per Day: 1 Cigarettes Per Day: 20.0 Years Smoked: 18 Second Hand Smoke Exposure: No Substance Use Type: Unknown Advance Directives: No Advance Directives Information Provided: Yes service: No Sexual orientation: Straight/Heterosexual Meds Allergies Allergy/AdvReac Type Severity Reaction Status Date / Time No Known Allergies Allergy Verified 06/17/20 20:38 [No Known Allergies*] Exam Exam Date and Time: August 09, 2020 0757 Height,Weight and Vital Signs: Height 5 ft 9 in Weight 104.326 kg Last Vital Signs Temp 97.4 F 08/09/20 06:54 Pulse 76 08/09/20 06:54 Resp 16 08/09/20 06:54 BP 129/91 H 08/09/20 06:54 Pulse Ox 94 08/09/20 06:54 Airway Mallampati Class: III TM Dist: >3cm Neck ROM: Full Partial: Upper
--- NOTE | 2020-08-09 08:13 | HO.ECTPROC ---
ECT Procedure Note Diagnosis/Treatment Date of Service: 08/09/20 Diagnosis: Schizoaffective Disorder Previous ECT Date: 08/02/20 Current Treatment Number: 9 Treatment: Series Interval Clinical Notes: pt states feels stable no c/o side effects ECT Settings Device: THYMATRON DGx Program/Pulse Width: 0.50 Energy Percent: 100 Seizure Duration By EEG (in seconds): 44 Medications Administration General Anesthetic: Etomidate (20) Muscle Relaxant: Succinylcholine (160 mg) Ancillary Medications Analgesics: Torodol - Pre ECT Anti-emetics: Zofran - Pre ECT Miscillaneous Medications: Propofol Airway Management Airway Management: Bag Mask Ventilation Treatment Recommendations No Changes Recommended: No change Notes: f/u 2 weeks
== END 2020-08-09 10:19 | disposition home or self-care (01) ==
PROVIDERS: PCP Internal Medicine; Visit Provider Psychiatry & Neurology Psychiatry
PROC: (CPT 90870; principal; 2020-08-09 07:30)
DX: F25.9 Schizoaffective disorder, unspecified (principal); F42.9 Obsessive-compulsive disorder, unspecified; F32.9 Major depressive disorder, single episode, unspecified; F42.4 Excoriation (skin-picking) disorder; I10 Essential (primary) hypertension; G47.33 Obstructive sleep apnea (adult) (pediatric); Z87.820 Personal history of traumatic brain injury; F17.210 Nicotine dependence, cigarettes, uncomplicated; Z79.899 Other long term (current) drug therapy; Z79.02 Long term (current) use of antithrombotics/antiplatelets
CPT/HCPCS: 90870; J0330; J1885; J2405

== ENCOUNTER 2020-08-20 08:30 | Outpatient (RCR) | payer OTHER, SELFPAY ==
--- NOTE | 2020-08-12 12:43 | P.HPPSP_ITS ---
HPI Chief Complaint: MDD recurrent severe w/psych features, Anxiety Sources of Information: patient interviewed, chart reviewed and crisis/core team assessment reviewed HPI Medical Problems Affecting Mental Status: No Narrative: Mr. Baugh is a 49 year-old male, referred by after inpatient stay, as he wishes to develop a positive day structure and coping skills. I want to get more grounded, and get back into living my life . He is not , has no children. He was recently inpatient on . He has had 5 admissions within the past 2 years,including stays in August and October 2018, and August,October 2019. He was also at [facility] in March 2020, as well as 3 different [facility] treatment facilities within the past several years also. 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 He says that over the past several years he has struggled with his anxiety and depression, and says he has also had unstable work and relationship issues. He is currently unemployed. He currently resides in [place], and has been staying with a brother. He has one older brother and one younger brother. His parents when he was a young child. He saw his father intermittently during childhood. His mother remarried, and he was raised by mother and step-father, with brothers. He met all developmental milestones graduated high school, has a Bachelors degree in exercise science. He describes his family and friends as supportive. Past Psychiatric History[place] [facility] [place] within past 2 years. [place] [facility] [place] 05/14-07/07/2019 #13 ECT treatments 3 different [facility] treatment facilities within past 2 years. Has [facility] outpatient provider, Fabiana Kamara, phone [phone] Trials: Sertraline, Remeron, Seroquel, Lorazepam, Ataras, Geodon, Paxil, Topamax, Propranolol Medical Evaluation Reviewed: Yes [facility] Medical History (Updated 08/12/20 @ 12:46 by Joi Donald RN) Anxiety Depression GERD (gastroesophageal reflux disease) Hernia HTN (hypertension) Mandibular fracture OCD (obsessive compulsive disorder) JAMES (obstructive sleep apnea) Psychosis Pulmonary emboli Severe recurrent major depression w/psychotic features, mood-congruent Skin-picking disorder TBI (traumatic brain injury) Surgical History (Updated 08/12/20 @ 12:46 by Joi Donald RN) History of foot surgery Family History: Alcoholism Paternal grandfather possible schizophrenia, with psych hospitalizations. Social History: Brother is POA Substance History: Remote history alcohol and cocaine use, states last use 12 years ago. Chart states mother had filed a section 35 years ago for alcohol use. Hx of 2 DUI's, 1993 and 1998. Recent admission was positive THC, states no longer using marijuana. Nicotine use: current smoker Trauma History: Age 21, pt's girlfriend had an -pt started drinking and using drugs after this incident. Meds/Allergies Allergies Allergies Allergy/AdvReac Type Severity Reaction Status Date / Time No Known Allergies Allergy Verified 06/17/20 20:38 [No Known Allergies*] Mental Status Exam Mental Status Exam Patient Appearance: Well Grooomed and Appropriate Patient Orientation: Person, Place, Time and Situation Level of Consciousness: Awake and Appropriate Patient Behavior: Appropriate, Cooperative and Good Eye Contact Mood Description: Appropriate, Depressed and Anxious Affect Description: Blunted and Flat Patient Cognition Impaired: No Ability to Follow Directions: Excellent Speech Pattern: Clear and Appropriate Memory Description: Intact Hallucinations: None Delusions: Not Present Thought Process: Intact Thought Content: positive for Intact Depressive Symptoms: Increased Anxiety Judgement: Good Assessment & Plan Certification ASSESSMENT: Mr. Baugh is a 49 year-old male, referred by after inpatient stay, where he was treated for MDD with psychotic features, anxiety, OCD symptoms. He wishes to develop a positive day structure and coping skills, from daily groups in [facility]. Currently on psychiatric medications, including fluoxetine 40mg, ariprazole 10mg, clomipramine 50mg, desryl. Also currently receiving oupatient ECT, which was initiated during most recent hospital stay. He states he is happy with current medications, and feels that they are managing his symptoms well. No medication recommendations at this time. Follow-up in one week, sooner if needed. I certify that partial hospital treatment is medically necessary due to the symptoms and problems resulting from the patient's mental illness and the failure to treat the patient at the partial hospital level of care would likely result in the patient requiring inpatient psychiatric care which could not be prevented at a less intensive level of care. Telehealth Telehealth Location of provider rendering services: practice address Location of patient: address on file Patient Identification confirmed using: Name, : Yes Telehealth method: video Patient verbally consented to treatment: Yes Patient verbally consented to billing insurance company: Yes Patient informed of any privacy concerns related to visit: Yes Time spent with patient (mins): 45
[2020-08-12 12:47] VITALS: BMI 34.0
--- NOTE | 2020-08-12 13:06 | PC.NURSE ---
Patient is a 49 year old male who was referred to PHP by [facility] where patient was admitted d/t increased depression and anxiety. It was reported that patient was delusional in the ER and he had not been on psychiatric medications for a month. He was having AH to end his life and he was struggling to sleep. Patient is alert and oriented x4. Calm and cooperative. No delusional content noted. Patient denied SI, AH, VH, or paranoid thoughts. Gave verbal permission to email him a copy of his safety plan. Will email patient smoking cessation materials as he is interested in quitting. Medications reconciled with patient and [facility] d/c paperwork. Patient reports taking medications as prescribed.
--- NOTE | 2020-08-19 17:18 | P.PNPSP_ITS ---
Subjective Subjective Date of Service: 08/19/20 Reason For Visit: MDD recurrent severe w/psych features, Anxiety Medical Problems Affecting Mental Status: No Interim History: Rodríguez reports that he has been doing so so . 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 He denie s any thoughts of SI, and does not have any type of intent/plan. He says that he received his 2nd injection of Covid vaccine on Wednesday, and that he has been feeling physically tired, exhausted, during the day, since then. He is not sure if this is related to his current psychiatric medications in addition to the vaccine. We reviewed each of his medications, and time of day that he takes them. We also reviewed the purpose of each medication, and its importance in helping maintain his overall mental health. It was recommended that tonight he withhold the melatonin, and see if his level of sedation in the morning is improved. He was advised to check in if this does not help his level of exhaustion in the morning. He was agreeable to this plan. No other medication changes at this time. Will plan to follow-up next week, sooner if needed, especially if continues with symptoms of exhaustion without the melatonin. Medication Compliance: Yes Side effects from medications: Yes (reports feeling tired / exhausted, not sure if medication related. ) Attending Groups: Yes Review of Systems Constitutional: Reports no additional constitutional complaints and Reports fatigue Endocrine: Reports fatigue Mental Status Exam Mental Status Exam Patient Appearance: Well Grooomed and Appropriate Patient Orientation: Person, Place, Time and Situation Level of Consciousness: Awake and Appropriate Patient Behavior: Appropriate Mood Description: Depressed Affect Description: Depressed and Flat Patient Cognition Impaired: No Ability to Follow Directions: Excellent Speech Pattern: Clear Memory Description: Intact Hallucinations: None Delusions: Not Present Thought Process: Intact and Rumination Thought Content: positive for Intact Depressive Symptoms: Feelings of Worthlessness, Hopelessness, Unhappiness and Increased Fatigue Judgement: Fair Diagnostics Vital Signs (24Hr): Body Mass Index 34.0 Assessment & Plan Assessment & Plan (1) MDD (major depressive disorder), recurrent episode, severe: Status: Acute Code(s): F33.2 - Major depressive disorder, recurrent severe without psychotic features Assessment and Plan: Patient describes fatigue, increased depression symptoms. Wishes to decrease medication. Reviewed medications and importance of each. Plan is to omit the melatonin to see if it helps with morning lethargy and decreased energy. Certification I certify that partial hospital treatment is medically necessary due to the symptoms and problems resulting from the patient's mental illness and the failure to treat the patient at the partial hospital level of care would likely result in the patient requiring inpatient psychiatric care which could not be prevented at a less intensive level of care. Greater than 50% of the session was spent on counseling and/or coordination of care Discharge Plan Discharge Attending provider: Andrew Dorantes Primary Care Provider: Jordan Morgan Medications: No Action melatonin 3 mg Tablet 3 mg PO BEDTIME 30 Days Qty: 30 RF: 0 nicotine 21 mg/24 hr Patch 24 Hour 21 mg transdermal DAILY 21 Days RF: 0 clomipramine 25 mg Capsule 50 mg PO BEDTIME 30 Days Qty: 60 RF: 1 aripiprazole 10 mg Tablet 10 mg PO BEDTIME 30 Days Qty: 30 RF: 1 nicotine (polacrilex) 2 mg Mini Lozenge 2 mg buccal Q2H PRN (Reason: Nicotine Cravings) 30 Days Qty: 60 RF: 0 fluoxetine [Prozac] 40 mg capsule 40 mg PO DAILY 30 Days Qty: 30 RF: 1 omeprazole 20 mg capsule,delayed release(DR/EC) 1 cap PO DAILY 30 Days Qty: 30 RF: 0 lisinopril 5 mg tablet 1 tab PO DAILY 30 Days Qty: 30 RF: 1 metoprolol tartrate 25 mg tablet 1 tab PO BID 30 Days Qty: 60 RF: 1 Eliquis 5 mg tablet 1 tab PO BID 30 Days Qty: 60 RF: 0 Referrals: Jordan Morgan MD [Primary Care Provider] - 1 Week Stand Alone Forms: Patient Portal Discharge page Telehealth Telehealth Location of provider rendering services: practice address Location of patient: address on file Patient Identification confirmed using: Name, : Yes Telehealth method: video Patient verbally consented to treatment: Yes Patient verbally consented to billing insurance company: Yes Patient informed of any privacy concerns related to visit: Yes Time spent with patient (mins): 15
--- NOTE | 2020-08-22 09:52 | PC.NURSE ---
Tw called pt as he was not present in first group. Pt had called earlier in the morning to report that he was having technical issues and he would keep trying. TW left pt a message asking him to call back with the status of the device, and due to the time, informed pt to take the day and return to program tomorrow. Informed the PHP team.
--- NOTE | 2020-08-23 10:25 | PC.NURSE ---
Patient is being discharged from the program AMA today as patient is currently on vacation in [place]. Spoke to patient this morning who stated he will be home on September 09. Patient was told on intake that he needed to be in [place] while attending [facility] and reminded patient that he was told this information at that time. Patient stated he forgot. Patient reports he has an upcoming provider appointment at [facility].
--- NOTE | 2020-08-23 14:46 | PC.NURSE ---
Tw received a call from the secretary to board of commissioners from outpatient psychiatry informing that the patient had missed his scheduled ECT on Wednesday. [place] had returned pt's call and asked why it was missed. Pt stated he overslept. Manufacturing Support Engineer then attempted to reschedule the ECT appt for Wednesday, however pt stated that he could not attend. Secreatary inquired as to why- pt then disclosed that he was in [place] and had been since Wednesday afternoon. Pt had canceled [facility] Wednesday for ECt and canceled due to technical difficulties. Pt will be called Wednesday morning to verify that pt is indeed in [place]. If so pt will be discharged AMA as pt was aware that he needed to remain in [place] throughout the duration of treatment at [facility].
== END 2020-08-26 09:10 | disposition home or self-care (01) ==
LOC: HO.PHPA 08:30
PROVIDERS: PCP Internal Medicine; Visit Provider Psychiatry & Neurology Psychiatry
DX: F33.2 Major depressive disorder, recurrent severe without psychotic features (principal); F41.9 Anxiety disorder, unspecified; Z79.899 Other long term (current) drug therapy
CPT/HCPCS: 90791; 90853; 99205